=== PATIENT | male | born 1940 | race Caucasian/White ===

== ENCOUNTER 2024-05-29 09:48 | Emergency (ER) | payer MEDICARE, OTHER, SELFPAY ==
--- NOTE | ~2024-05-29 | CT_ITS ---
CLINICAL HISTORY: diffuse low back and ABD pain, no injury Exam: CT Abdomen and Pelvis With IV Contrast Comparison: None Findings: The liver density is homogeneous The gallbladder is normal in size containing multiple gallstones The spleen is normal in size No pancreatic ductal dilatation No hydronephrosis. There is a 6 cm benign left renal cortical and parapelvic cyst. No urinary tract calculi or obstruction. Normal bowel caliber. A right inguinal hernia is present containing non incarcerated small bowel. The bowel pattern is nonobstructed. The inguinal hernia mouth measures 4 cm in diameter. There are very few colon diverticula. The appendix is normal. No free fluid/free air Abdominal aorta caliber is normal is athero sclerotic plaque. There is visceral artery atherosclerotic calcification. Small and large bowel branches are perfused. Bladder outline is smooth. Hemostasis clips are present in the region of the prostate gland which is presumed surgically absent. No suspicious skeletal lesions. Mild degenerative spondylosis involving the lumbar spine without signs of canal stenosis. Impression : 1. Right inguinal hernia without signs of bowel obstruction 2. Normal-size gallbladder with cholelithiasis. This document has been electronically signed by: Rui Forte MD on 05/29/2024 14:20:02
--- NOTE | ~2024-05-29 | XR_ITS ---
CLINICAL HISTORY: pain 3 views lumbar spine Comparison: None Findings: No fracture or acute malalignment. Moderate multilevel degenerative change with disc space narrowing and facet hypertrophy. IMPRESSION: No acute findings. Moderate multilevel degenerative change. This document has been electronically signed by: Jose Guadalupe Acevedo MD on 05/29/2024 11:59:32
[2024-05-29 10:00] VITALS: BP 171/79; PULSE 58; RESP 20; TEMP 36.7; O2SAT 97; BMI 22.2
--- NOTE | 2024-05-29 10:56 | ED_ITS ---
HPI - Back Pain/Injury General Chief Complaint: Back Pain/Injury Stated Complaint: back pain Time Seen by Provider: 05/29/24 10:56 Source: patient Mode of arrival: ambulatory (With a cane) Limitations: no limitations History of Present Illness ED Provider: Betina Pyle NP HPI Narrative: Patient is an 84-year-old male past medical history of hypertension, psoriatic arthritis, RCA stenting in February of 2023, family reports that he had was experiencing severe palpitations and a Holter monitor was showing very frequent runs of PVCs therefore cardiac catheterization was performed. He presents to the emergency department with family for evaluation of back pain today. Patient reports that he is experiencing pain diffusely across the lower back, first noticed this when he got out of bed this morning to walk to the bathroom. He does admit that last night he tripped but feels quite certain that he did not fall he does not recall having to stand up or get up off the floor. He reports that it was dark he can not provide much further details surrounding this trip, does not recall falling into anything. Pain is exacerbated with movement, deep breathing or cough. During evaluation he also admits to having pain to the bilateral sides of his abdomen deep breathing and movement. He denies dysuria, urinary frequency/urgency/hesitancy, or hematuria. He denies anterior chest pain or shortness of breath. He does admit that he has been experiencing rhinorrhea over past month or so, but has not been experiencing cough. Denies history of similar pain. Took ibuprofen 600 mg at approximately 09:15 without any improvement MD elicited complaint: back pain Related Data Allergies Allergy/AdvReac Type Severity Reaction Status Date / Time No Known Allergies Allergy Verified 05/29/24 10:02 [No Known Allergies*] Review of Systems 2 Review of Systems: Yes all other systems are reviewed and are negative [facility] Past Medical History Attestation statement: The following information was validated with the patient. Source: old records reviewed Social History Social History Advance Directives: No Advance Directives Information Provided: Yes Do you have a plan to hurt others: No Plan Physical Exam 2 Vital Signs: Vital Signs: Last Vital Signs Temp 98.1 F 05/29/24 10:00 Pulse 59 05/29/24 16:17 Resp 14 05/29/24 16:17 BP 120/67 05/29/24 16:17 Pulse Ox 94 05/29/24 16:17 O2 Del Method Room Air 05/29/24 16:17 BMI result Body Mass Index 22.2 Appearance: Alert.?Oriented to person, place and time. No acute distress.?Normal affect. Neck: Normal inspection.? Neck supple.?? CVS: Heart sounds normal. Normal heart rate and rhythm.? Pulses normal; bilateral radial pulses 2+, bilateral posterior tibial/dorsalis pedis pulses 2+.? Respiratory: No respiratory distress.? Lung sounds clear to auscultation bilaterally?? Abdomen: Soft and non-tender. Normoactive bowel sounds. No pulsatile mass.?? Skin: Skin warm and dry.? Normal skin color.? ?? Extremities: No lower extremity edema.? Back: On evaluation does not have reports to possible pain on palpation, no paraspinal muscle tenderness or spasming. No CVA tenderness. No midline spinal tenderness, step-off's, or deformity. Full ROM intact in bilateral lower extremities. Straight leg test negative on right; Straight leg test negative on left. No rashes, lesions, areas of induration or fluctuance, or signs of infection noted., Neuro: Moves all extremities spontaneously. 5/5 strength in hip extension/flexion, abduction, adduction. Sensation to light touch intact bilaterally. No ataxia, gait unsteady but at baseline per family.. No focal neuro deficits. Course Reevaluation(s) Reevaluation #1: CT of the abdomen and pelvis revealing a right inguinal hernia without signs of bowel obstruction, normal gallbladder, no hydronephrosis or urolithiasis, diverticulosis without diverticulitis, normal appendix, no AAA. Incidental finding is benign left renal cyst.. Reviewed the signs patient and family at bedside. At this time will trial of tizanidine and acetaminophen. Daughter feel strongly about physical therapy evaluation, she states that at baseline he has an unsteady gait despite use of a cane due to the arthritis that is progressively been worsening in his right knee. He currently resides in an independent living, and they worry about his safety especially with use of a muscle relaxant and going home independently. Will place him physician observation pending case management and physical therapy evaluation for further disposition. Time: 14:49 Reevaluation #2: Patient resting quietly asleep on the stretcher after receiving medication, arouses to verbal stimuli. Reports improvement in pain. Time: 16:15 Medications Administered Discontinued Medications Generic Name Dose Route Start Last Admin Trade Name Nadine PRN Reason Stop Dose Admin Acetaminophen 975 mg 05/29/24 14:48 05/29/24 15:18 Acetaminophen 325 Mg Tablet PO 05/29/24 14:49 975 mg ONCE ONE Administration Sodium Chloride 1,000 mls @ 999 mls/hr 05/29/24 12:45 05/29/24 14:32 Ns IV 05/29/24 13:45 Infused .Q1H1M LILLY Infusion Iohexol 100 ml 05/29/24 12:36 05/29/24 12:36 Iohexol 350 Mg/Ml 100 Ml Infus..Btl IV 05/29/24 12:37 85 ml ONCE ONE Administration Tizanidine HCl 4 mg 05/29/24 14:48 05/29/24 15:18 Tizanidine Hcl 4 Mg Tablet PO 05/29/24 14:49 4 mg ONCE ONE Administration Medical Decision Making Medical Decision Making [facility] Narrative: Patient is an 84-year-old male past medical history of hypertension, psoriatic arthritis, RCA stenting in February of 2023 who presents for evaluation of diffuse lower back pain with onset this morning noted while getting out of bed. On examination I am not able to reproduce the pain upon palpation, pain does seem to exacerbate with movement, or anything that increases intra-abdominal pressure such as coughing, deep breathing, during examination he also notes having pain to the bilateral sides of the abdomen. No midline spinous tenderness, step-offs suspicion for acute fracture subluxation. Will obtain CBC to evaluate for leukocytosis/ anemia, CMP and lipase to evaluate for abnormal electrolytes /abnormal renal function/ abnormal hepatic/biliary function, EKG and troponin to evaluate for ischemia/ACS. CT of the abdomen and pelvis to evaluate for retroperitoneal bleeding, hematoma, aneurysm in addition will obtain Urinalysis. Differential Diagnosis Differential Diagnoses: The differential diagnosis associated with the presentation includes ( see narrative above) Admission/Observation Consideration of admission/observation: Escalation of care including admission/observation considered ( see narrative above) Lab Data [facility] Lab Attestation statement: I reviewed the patient's lab results. 05/29/24 11:42 05/29/24 11:42 Labs: Lab Results 05/29/24 05/29/24 Range/Units 11:42 11:57 WBC 5.5 (4.8-10.8) X10*3/uL RBC 4.28 L (4.60-5.80) X10*6/uL Hgb 12.2 L (14.0-18.0) g/dl Hct 38.2 L (42.0-52.0) % MCV 89.3 (80.0-98.0) fL MCH 28.5 (27.0-33.0) pg MCHC 31.9 (31.0-36.0) g/dl RDW 15.0 (11.0-16.0) % Plt Count 200 (160-400) X10*3/uL MPV 9.3 L (9.4-12.4) fL Immature Gran % (Auto) 0.5 H (0.0-0.4) % Neut % (Auto) 71.9 (45-73) % Lymph % (Auto) 17.5 L (20-40) % Mathews % (Auto) 6.6 (2-11) % Eos % (Auto) 2.4 (0-4) % Baso % (Auto) 1.1 (0-2) % Lymph # (Auto) 1.0 L (1.2-4.9) X10*3/uL Mathews # (Auto) 0.4 (0.1-1.2) X10*3/uL Eos # (Auto) 0.1 (0.0-0.4) X10*3/uL Baso # (Auto) 0.1 (0.0-0.2) X10*3/uL Abs Immat Gran (auto) 0.03 (0.00-0.03) X10*3/uL Absolute Neuts (auto) 3.9 (2.0-8.3) x10*3/uL Absolute Nucleated RBC 0.000 (0.0-0.012) X10*3/uL Nucleated RBC % (auto) 0.0 (0.0-0.2) /100WBC Sodium 140 (135-145) mmol/L Potassium 4.4 (3.3-5.1) mmol/L Chloride 111 H (96-108) mmol/L Carbon Dioxide 23 (22-29) mmol/L Anion Gap 10 L (12-20) BUN 14 (9-16) mg/dL Creatinine 0.97 (0.5-1.4) mg/dL Estim Creat Clear Calc 57.3 Estimated GFR > 60 Random Glucose 100 (60-115) mg/dL Calcium 8.2 L (8.4-10.2) mg/dL Magnesium 2.3 (1.6-2.6) mg/dL Total Bilirubin 0.8 (0.0-1.0) mg/dL Direct Bilirubin 0.3 (0.0-0.5) mg/dL AST 17 (5-37) U/L ALT 11 (0-40) U/L Alkaline Phosphatase 66 (39-117) U/L Troponin I High Sens 4.5 (<3.5-35.0) ng/L B-Natriuretic Peptide 183 H (<100) pg/mL Total Protein 6.5 (6.5-8.0) g/dL Albumin 3.6 (3.5-5.0) g/dL Lipase 24 (8-78) U/L Urine Color Yellow Urine Appearance Clear Urine pH 7.5 (5.0-9.0) Ur Specific [place] 1.010 (1.005-1.025) Urine Protein Negative (Neg-Trace) mg/dL Urine Glucose (UA) Negative (Negative) mg/dL Urine Ketones Negative (Negative) mg/dL Urine Blood Negative (Negative) Urine Nitrite Negative (Negative) Ur Leukocyte Esterase Negative (Negative) Independent Interpretation I performed an independent interpretation of an: EKG (EKG revealing sinus bradycardia first-degree AV block and RBBB with NC interval 216 MS, ventricular rate 54, QTC 434, no ST elevation, T-wave inversion in lead III) Radiology Impression Discussion of test interpretation with radiology: I have reviewed the radiologist's reading. Radiologist Impression: 3 views lumbar spine Comparison: None Findings: No fracture or acute malalignment. Moderate multilevel degenerative change with disc space narrowing and facet hypertrophy. IMPRESSION: No acute findings. Moderate multilevel degenerative change. Exam: CT Abdomen and Pelvis With IV Contrast Comparison: None Findings: The liver density is homogeneous The gallbladder is normal in size containing multiple gallstones The spleen is normal in size No pancreatic ductal dilatation No hydronephrosis. There is a 6 cm benign left renal cortical and parapelvic cyst. No urinary tract calculi or obstruction. Normal bowel caliber. A right inguinal hernia is present containing non incarcerated small bowel. The bowel pattern is nonobstructed. The inguinal hernia mouth measures 4 cm in diameter. There are very few colon diverticula. The appendix is normal. No free fluid/free air Abdominal aorta caliber is normal is athero sclerotic plaque. There is visceral artery atherosclerotic calcification. Small and large bowel branches are perfused. Bladder outline is smooth. Hemostasis clips are present in the region of the prostate gland which is presumed surgically absent. No suspicious skeletal lesions. Mild degenerative spondylosis involving the lumbar spine without signs of canal stenosis. Impression : 1. Right inguinal hernia without signs of bowel obstruction 2. Normal-size gallbladder with cholelithiasis. Independent Historian Clinical information obtained from an independent historian. History obtained from or confirmed by: Other (children) Prescription Management I considered prescription management with: Pain Medication Chronic Conditions Patient?s care impacted by: Other (See narrative above) Discharge Plan Discharge Clinical Impression: Lower back pain Patient Disposition: Still a Patient Print Language: Estonian
--- NOTE | 2024-05-29 11:17 | ECG_ITS ---
Test Reason : ABD PAIN Blood Pressure : */* mmHG Vent. Rate : 54 BPM Atrial Rate : 54 BPM P-R Int : 216 ms QRS Dur : 134 ms QT Int : 458 ms P-R-T Axes : 105 17 21 degrees QTcB Int : 434 ms Artifact in tracing Sinus bradycardia with 1st degree A-V block Right bundle branch block Abnormal ECG When compared with ECG of 12-Feb-2019 11:32, Premature ventricular complexes are no longer Present MD interval has increased Right bundle branch block is now Present Referred By: Betina Pyle Electronically Signed By: ORLIN BRANDON
[2024-05-29 11:50] LABS: MANUAL DIFF FLAG NO
[2024-05-29 11:53] LABS: Basophils Absolute Auto 0.1 X10*3/uL (0.0-0.2); Basophils Percent Auto 1.1 % (0-2); Eosinophils Absolute Auto 0.1 X10*3/uL (0.0-0.4); Eosinophils Percent Auto 2.4 % (0-4); Hematocrit 38.2 % (42.0-52.0); Hemoglobin 12.2 g/dl (14.0-18.0); Imm Gran Abs Auto 0.03 X10*3/uL (0.00-0.03); Imm Gran Pct Auto 0.5 % (0.0-0.4); Lymphocytes Percent Auto 17.5 % (20-40); Mean Corpuscular HGB Conc 31.9 g/dl (31.0-36.0); Mean Corpuscular Hemoglobin 28.5 pg (27.0-33.0); Mean Corpuscular Volume 89.3 fL (80.0-98.0); Mean Platelet Volume 9.3 fL (9.4-12.4); Monocytes Absolute Auto 0.4 X10*3/uL (0.1-1.2); Monocytes Percent Auto 6.6 % (2-11); Neutrophils Absolute Auto 3.9 x10*3/uL (2.0-8.3); Neutrophils Percent Auto 71.9 % (45-73); Platelet Count 200 X10*3/uL (160-400); Red Blood Count 4.28 X10*6/uL (4.60-5.80); White Blood Count 5.5 X10*3/uL (4.8-10.8)
[2024-05-29 12:06] LABS: Appearance Urine Clear; Color Urine Yellow; Glucose Urine UA Negative (Negative); Leukocyte Esterase Urine Negative (Negative); Nitrite Urine Negative (Negative); PH 7.5 (5.0-9.0); Urine Blood Negative (Negative); Urine Ketones Negative (Negative); Urine Protein Negative (Neg-Trace)
[2024-05-29 12:09] LABS: Alanine Aminotransferase 11 U/L (0-40); Albumin Level 3.6 g/dL (3.5-5.0); Alkaline Phosphatase 66 U/L (39-117); Anion Gap 10 (12-20); Aspartate Amino Transferase 17 U/L (5-37); Bilirubin Direct 0.3 mg/dL (0.0-0.5); Bilirubin Total 0.8 mg/dL (0.0-1.0); Blood Urea Nitrogen 14 mg/dL (9-16); Calcium 8.2 mg/dL (8.4-10.2); Carbon Dioxide 23 mmol/L (22-29); Chloride 111 mmol/L (96-108); Creatinine Clr Calc Pharmacy 57.3; Estimated Glomerular Filt Rate > 60; Glucose Random 100 mg/dL (60-115); Lipase 24 U/L (8-78); Magnesium 2.3 mg/dL (1.6-2.6); Potassium 4.4 mmol/L (3.3-5.1); Sodium 140 mmol/L (135-145); Total Protein 6.5 g/dL (6.5-8.0)
[2024-05-29 12:12] LABS: B Type Natriuretic Peptide 183 pg/mL (<100)
[2024-05-29 12:14] LABS: Troponin-I High Sensitivity 4.5 ng/L (<3.5-35.0)
[2024-05-29] MEDS: iohexoL 350 MG/ML 100 ML INFUS..BTL IV (12:36)
[2024-05-29] MEDS: 0.9 % Sodium Chloride 1,000 ML 999 ML IV (13:19)
--- NOTE | 2024-05-29 15:12 | MHC.CM.PN ---
CM RECEIVED A CONSULT FOR PT DUE TO ACUTE LOWER BACK PAIN AND CHRONIC UNSTEADY GAIT CM MET WITH PT AND FAMILY AT BEDSIDE PT LIVES AT [facility] WHERE HE USES A CANE AT BASELINE DAUGHTER REPORTS CONCERN THAT PTS GAIT WAS ALREADY UNSTEADY AND IS WORSE WITH THE PAIN AND MUSCLE RELAXERS THEY ALL REPORT STR WOULD BE PREFERRED THEY UNDERSTAND A PT EVAL WILL BE COMPLETED TOMORROW PER DISCUSSION, REFERRALS WILL BE MADE TO [facility] IN CASE HE DOES NOT QUALIFY FOR REHAB
[2024-05-29] MEDS: Acetaminophen 325 MG TABLET 975 MG PO (15:18)
[2024-05-29] MEDS: TiZANidine HCL 4 MG TABLET PO (15:18)
[2024-05-29 16:17] VITALS: BP 120/67; PULSE 59; RESP 14; O2SAT 94
[2024-05-29 18:48] VITALS: BP 166/55; PULSE 46; RESP 14; O2SAT 96
--- NOTE | 2024-05-29 19:32 | PC.NURSE ---
p requesting pain medication, PA aware
[2024-05-29] MEDS: Acetaminophen 325 MG TABLET 650 MG PO (21:38)
--- NOTE | 2024-05-29 22:57 | PC.NURSE ---
pt alert, verbal, no issues raised, call light within reach
[2024-05-30 00:33] VITALS: BP 139/60; PULSE 52; RESP 16; TEMP 36.8; O2SAT 97
--- NOTE | 2024-05-30 00:41 | MHC.EDTECH ---
This pct assumed care of Patient at 2300 ,vitals taken ,Patient belongings list done ,Patient was offer to change into hospital,Pants ,but refused .
[2024-05-30 06:27] VITALS: BP 159/65; PULSE 53; RESP 16; TEMP 36.6; O2SAT 96
[2024-05-30] MEDS: carvediloL 12.5 MG TABLET PO (08:29)
[2024-05-30] MEDS: Aspirin 81 MG TAB.CHEW PO (08:29)
[2024-05-30] MEDS: Atorvastatin Calcium 80 MG TABLET PO (08:29)
[2024-05-30] MEDS: Lidocaine 4 % Patch ADH..PATCH 1 PATCH TRANSDERMA (09:41)
--- NOTE | 2024-05-30 09:47 | MHC.CM.ED ---
Patient remains in ER. Physical therapy eval completed. Home with services recommended. Waiting for eval to be written up. Attempted to meet with patient in regards to discharge planning. Patient currently sleeping. Daughter, Yeny at beside. Yeny agreeable to patient being d/c'd home with [facility] for physical therapy. [facility] Yeny agreeable to this. Yeny will transpot patient home. Temitope RN and Ciarra GARCIA aware. Continue to monitor for d/c needs.
[2024-05-30 10:14] VITALS: BP 142/69; PULSE 57; RESP 16; TEMP 36.9; O2SAT 96
[2024-05-30 10:44] LABS: Influenza A PCR NEGATIVE (Negative); Influenza B PCR NEGATIVE (Negative); Resp Syncy Virus RNA Qual PCR NEGATIVE (Negative); SARS COV2 PCR INHOUSE NEGATIVE (Negative)
== END 2024-05-30 10:15 | disposition home or self-care (01) ==
PROVIDERS: Nurse Practitioner Family; Registered Nurse Emergency; Emergency Provider Emergency Medicine; PCP Internal Medicine
DX: M54.50 Low back pain, unspecified (principal); R00.2 Palpitations; R10.2 Pelvic and perineal pain; J34.89 Other specified disorders of nose and nasal sinuses; R05.9 Cough, unspecified; R26.81 Unsteadiness on feet; R00.1 Bradycardia, unspecified; R94.31 Abnormal electrocardiogram [ECG] [EKG]; R06.02 Shortness of breath; Z79.899 Other long term (current) drug therapy; Z03.818 Encounter for observation for suspected exposure to other biological agents ruled out
CPT/HCPCS: 0241U; 36415; 72100; 74177; 80048; 80076; 81003; 83690; 83735; 83880; 84484; 85025; 93005; 96360; 97161; 99284; 99285; Q9967

== ENCOUNTER → 2024-05-29 10:05 | Outpatient (BNV) | payer MEDICARE, OTHER, SELFPAY | PROVIDERS: Emergency Provider Emergency Medicine; PCP Internal Medicine; Visit Provider Radiology Vascular & Interventional Radiology | DX: M54.50 Low back pain, unspecified (principal) | CPT/HCPCS: 72100 ==

== ENCOUNTER → 2024-05-29 11:17 | Outpatient (BNV) | payer MEDICARE, OTHER, SELFPAY | PROVIDERS: Emergency Provider Emergency Medicine; PCP Internal Medicine; Visit Provider Internal Medicine | DX: I44.0 Atrioventricular block, first degree (principal); I45.10 Unspecified right bundle-branch block; R00.1 Bradycardia, unspecified | CPT/HCPCS: 93010 ==

== ENCOUNTER 2024-07-10 18:51 | Inpatient (IN) | payer MEDICARE, OTHER, SELFPAY ==
--- NOTE | ~2024-07-10 | CT_ITS ---
CLINICAL HISTORY: fall CT cervical spine without contrast Comparison: 02/12/2019 11:40 AM EST: CTSR: CAT SCAN CERVICAL SPINE 07852 (10:40 AM DRAINAGE ENGINEER) Findings: Chronic anterior compression deformity of the C6 vertebral body with bony fusion causing focal kyphosis. Moderate to severe multilevel spondylosis with disc space narrowing, endplate sclerosis osteophytosis and facet arthropathy. Diffuse osteopenia. Visualized intracranial contents are unremarkable. No cervical fluid collections or masses. Lung apices are clear. IMPRESSION: No evidence of acute fracture or traumatic listhesis cervical spine. Moderate to severe multilevel spondylosis. Chronic moderate anterior compression deformity of the C6 vertebral body with bony fusion causing focal kyphosis. This document has been electronically signed by: Miguel Ángel Marquez MD on 07/10/2024 21:42:09
--- NOTE | ~2024-07-10 | CT_ITS ---
CLINICAL HISTORY: fall CT head without contrast Comparison: None Findings: No intra-axial mass, midline shift, hydrocephalus, or acute hemorrhage. Moderate atrophy-like change or white matter disease. There is no sinus or mastoid fluid. The orbits are unremarkable. There is no acute fracture. IMPRESSION: 1. No acute intracranial findings specifically, no acute intracranial hemorrhage. 2. Moderate atrophy-like change or white matter disease. This document has been electronically signed by: Miguel Ángel Marquez MD on 07/10/2024 21:43:10
--- NOTE | ~2024-07-10 | XR_ITS ---
CLINICAL HISTORY: fall 2 view right femur Comparison: CR - XR HIP RT W PEL1V - 07/10/24 20:47 EDT Findings: Acute comminuted intertrochanteric fracture of the right hip. No knee effusion. No significant arthritic change. No radiopaque foreign body. IMPRESSION: Acute comminuted intertrochanteric fracture of the right hip. This document has been electronically signed by: Miguel Ángel Marquez MD on 07/10/2024 21:31:27
--- NOTE | ~2024-07-10 | CT_ITS ---
CLINICAL HISTORY: fall, reporting suprapubic pain CT abdomen and pelvis with contrast Comparison: CT/SR - CT ABDOMEN PELVIS W IV CON - 05/29/2024 12:34 PM EDT Findings: No consolidation or effusion. Cholelithiasis. No gallbladder wall thickening or pericholecystic fluid. A 5.5 cm left parapelvic cyst. No hydronephrosis or nephrolithiasis. No renal stones. No bowel obstruction, pneumoperitoneum, or pneumatosis. Pelvic contents unremarkable. Normal appendix. Acute comminuted intertrochanteric fracture of the right hip. IMPRESSION: Acute comminuted intertrochanteric fracture of the right hip. Cholelithiasis. Left parapelvic 5.5 cm simple cyst. No hydronephrosis or nephrolithiasis. This document has been electronically signed by: Miguel Ángel Marquez MD on 07/10/2024 21:58:26
--- NOTE | ~2024-07-10 | CT_ITS ---
CLINICAL HISTORY: fall, R sided rib pain CT chest with contrast Comparison: CT/SR - CHEST WITHOUT CONTRAST [id number] - 02/12/19 11:40 EST Findings: The heart size is normal. The visualized thyroid and mediastinum are unremarkable. No consolidation or effusion. The visualized upper abdomen is unremarkable. Chronic severe compression fracture of the T8 vertebral body 4 mm retropulsion. Deformity of the right 5th posterior rib and left 6th 7th 8th 9th and 10th ribs consistent with remote trauma. IMPRESSION: 1. No acute disease within the chest. 2. Chronic severe compression deformity of the T8 vertebral body with 4 mm retropulsion. 3. Chronic right 5th and left 6th through 10th ribs fractures/deformities. This document has been electronically signed by: Miguel Ángel Marquez MD on 07/10/2024 22:44:48
--- NOTE | ~2024-07-10 | XR_ITS ---
CLINICAL HISTORY: fall 3 view, pelvis and right hip Comparison: None Findings: Acute comminuted intertrochanteric fracture of the right hip. No significant arthritic change. The soft tissues are unremarkable. IMPRESSION: Acute comminuted intertrochanteric fracture of the right hip. This document has been electronically signed by: Miguel Ángel Marquez MD on 07/10/2024 21:31:51
--- NOTE | ~2024-07-10 | FL_ITS ---
EXAMINATION: XR FLUOROSCOPY WITH IMAGES CLINICAL INFORMATION: Right femoral intramedullary nail. COMPARISON: None available. TECHNIQUE: Fluoroscopy provided to: Dr. Peace Fluoroscopy time: 0.7 minutes DAP: 0.341 mGycm2 Images: 2 FINDINGS: 2 fluoroscopic spot images taken during intramedullary nail and femoral head compression screw placement/ORIF of right hip intertrochanteric fracture. Please refer to the full operative report for details. FL/FL guidance in OR IMPRESSION: Fluoroscopic guidance. Electronically signed by: Jamison Pham MD 07/12/2024 08:18 AM EDT
[2024-07-10 19:20] VITALS: BP 156/88; BP 180/90; PULSE 76; PULSE 77; RESP 16; TEMP 36.7; O2SAT 94; O2SAT 95; BMI 21.5
--- NOTE | 2024-07-10 19:23 | ED_ITS ---
HPI - Fall General Chief Complaint: Fall Stated Complaint: fall, leg pain Time Seen by Provider: 07/10/24 19:23 Source: patient, family, EMS and RN notes reviewed Mode of arrival: EMS Limitations: no limitations History of Present Illness ED Provider: Elizabeth Allen PA-C HPI Narrative: This is a 84-year-old male, with a past medical history of hypertension, psoriatic arthritis, RCA stenting in February of 2023, atrial fibrillation - resolved after stenting, not currently on anticoagulation, who presents emergency department via EMS, accompanied by family, for evaluation of fall. Patient reports that he was trying to get inside his home at [facility] and was having difficulty unlocking the door when suddenly he fell backwards, striking his posterior head. He states that he also landed on his right side injuring his right leg. He has been unable to bear weight on his right leg since. Patient reports that he was on the ground for several minutes, family reports that typically there is a rn palliative that is right outside of the region where he was found on the ground. Family also reports they dropped patient off and within 15 minutes they received the phone call that he was going to the hospital so therefore he was only on the ground for approximately 5 minutes. He denies any chest pain or shortness for breath prior to the fall. He denies taking any medications prior to his arrival today. MD complaint: fall Onset (ago): minute(s) Fall from: standing Fall witnessed: no Place fall occurred: [facility] (Independent living - [facility]) Prolonged down time: minute(s) Symptoms prior to fall: none Context: tripped/slipped Quality: stabbing Associated symptoms (after fall): denies Related Data Home Medications ?Medication ?Instructions ?Recorded ?Confirmed aspirin 81 mg tablet 81 mg PO DAILY 05/29/24 05/29/24 atorvastatin 80 mg tablet 80 mg PO DAILY 05/29/24 05/29/24 carvedilol 12.5 mg tablet 12.5 mg PO BID 05/29/24 05/29/24 Previous Rx's ?Medication ?Instructions ?Recorded lidocaine 5 % topical patch 1 patch topical DAILY #15 ea 05/30/24 Allergies Allergy/AdvReac Type Severity Reaction Status Date / Time No Known Allergies Allergy Verified 07/10/24 19:23 [No Known Allergies*] Review of Systems 2 Review of Systems: Yes all other systems are reviewed and are negative Constitutional: Constitutional: Reports as per HPI Eyes: Eyes: Reports as per HPI, Denies change in vision and Denies eye discharge ENT: Reports system reviewed and no additional complaints, except as documented, Reports as per HPI, Reports Normal hearing present and Denies facial pain Cardiovascular: Cardiovascular: Reports as per HPI and Denies chest pain Respiratory: Respiratory: Reports as per HPI and Denies cough Gastrointestinal: Gastrointestinal: Reports as per HPI, Reports no additional gastrointestinal complaints, Denies abdominal pain, Denies diarrhea, Denies nausea and Denies vomiting Genitourinary: Genitourinary: Reports as per HPI Musculoskeletal: Musculoskeletal: Reports no additional musculoskeletal complaints and Reports as per HPI Integumentary/Breasts: Skin/Breast: Reports system reviewed and no additional complaints, except as docu, Reports as per HPI, Reports erythema, Denies rash and Denies wounds Neurologic: Reports Normal hearing present Psychiatric: Psychiatric: Reports no additional psychiatric complaints and Reports as per HPI Endocrine: Endocrine: Reports no additional endocrine complaints and Reports as per HPI Hematologic/Lymphatic: Hematologic/Lymphatic: Reports no additional hematologic/lymphatic complaints and Reports as per HPI Allergic/Immunologic: Allergic/Immunologic: Reports no additional allergic/immunologic complaints and Reports as per HPI PMF Past Medical History Attestation statement: The following information was validated with the patient. Social History Social History Unable to assess alcohol history related to: Unable to respond Patient Tobacco Use Status: Tobacco use Unknown Smoked in Last 30 Days: No Use of substances other than those prescribed or required for medical reasons: No Advance Directives: No Advance Directives Information Provided: Yes Do you have a plan to hurt others: No Plan Nutrition Risks: No Nutritional Risk Physical Exam 2 Vital Signs: Vital Signs: Last Vital Signs Temp 98.3 F 07/10/24 21:16 Pulse 75 07/10/24 21:16 Resp 16 07/10/24 19:20 BP 150/80 H 07/10/24 21:16 Pulse Ox 93 07/10/24 21:16 O2 Del Method Room Air 07/10/24 21:16 BMI result Body Mass Index 21.5 Const: General: cooperative, comfortable and no acute distress O rientation/consciousness: patient oriented x3 Limitations: no limitations HEENT: Head: Yes normal to inspection, Yes normocephalic and Yes atraumatic Ears: hearing grossly normal bilaterally General nose exam: Normal external nose present Face and sinus: Yes normal facial exam Mouth: Normal oral and palatal mucosa present, oropharynx normal and moist mucous membranes Throat: Yes posterior oropharynx normal Eyes: General: appearance normal, both eyes and all related structures E yelids: Yes eyelids normal Conjunctivae: conjunctivae normal Sclerae: s clerae normal Pupils: Equal, round and reactive pupils present EOM: EOMs intact bilaterally Neck: Other: In cervical collar Neck: Yes normal visual inspection, Yes full ROM and Yes no lymphadenopathy Lymphatic: no lymphadenopathy noted Chest: Other: No flail chest, no ecchymosis Chest palpation & inspection: normal inspection of the chest Resp: Effort & Inspection: normal respiratory effort and able to speak in complete sentences Auscultation: clear to auscultation bilaterally Cardio: Rate: regular rate Rhythm: regular rhythm Heart sounds: S1 normal heart sound present and S2 normal heart sound present GI: Other: Abdomen is soft, mild tenderness palpation in the suprapubic region, specifically on the right side. No rebound or guarding. No ecchymosis. Inspection: Yes normal to inspection Skin: General skin exam: no rashes or lesions noted Trauma: no lacerations or abrasions Wounds: no wounds Neuro: General: patient oriented x3 and moves all extremities Cranial nerves: Yes Equal, round and reactive pupils present and Yes Normal hearing present Extrem: Other: Right leg is shortened and externally rotated. Strong DP pulse. Patient has exquisite tenderness palpation along the anterior femur, extending into the right anterior-posterior hip. Unable to lift leg off bed secondary to pain. No open wounds or lacerations seen. General: Yes normal to inspection Right upper extremity: normal to inspection Left upper extremity: normal to inspection Left lower extremity: normal to inspection Course Reevaluation(s) Reevaluation #1: Added CT chest and abdomen as we are able to get clothes off, and patient does report some pain in his suprapubic region, no ecchymosis seen. No rebound or guarding. He also is reporting some right-sided chest pain, no bony step-off or deformity. Time: 20:23 Reevaluation #2: Sign-out given to my colleague, Ashkan Delaney PA-C pending xrays, cts, ekg, repeat trop. Time: 21:07 Reevaluation #3: patient received in sign-out at change of shift pending repeat trop, imaging and disposition. The patient's repeat trop is flat, rules out for ACS. Imaging is significant for acute, comminuted fracture of the right femoral leg. Discussed with orthopedicsEmperatriz who recommends admission to the medical service and NPO after midnight for likely OR intervention tomorrow. The patient is not anticoagulated. I discussed all this with the patient in his family he was bedside Time: 22:49 Medications Administered Discontinued Medications Generic Name Dose Route Start Last Admin Trade Name Freq PRN Reason Stop Dose Admin Iohexol 85 ml 07/10/24 20:50 07/10/24 20:51 Iohexol 350 Mg/Ml 100 Ml Infus..Btl IV 07/10/24 20:51 85 ml ONCE ONE Administration Lidocaine HCl 10 ml 07/10/24 22:02 07/10/24 22:23 Lidocaine Hcl 2 % Urojet 10 Ml Jel.Pf.Cindy TOPICAL 07/10/24 22:03 10 ml ONCE ONE Administration Morphine Sulfate 4 mg 07/10/24 19:36 07/10/24 19:44 Morphine Sulfate 4 Mg/Ml Cartridge IVPUSH 07/10/24 19:37 4 mg ONCE ONE Administration Protocol Morphine Sulfate 4 mg 07/10/24 22:02 07/10/24 22:20 Morphine Sulfate 4 Mg/Ml Cartridge IVPUSH 07/10/24 22:03 4 mg ONCE ONE Administration Protocol Medical Decision Making Medical Decision Making MDM Narrative: This is a 84-year-old male who presents emergency department with concerns for right leg pain status post mechanical fall which occurred today. On arrival, patient complaining of right hip and right femur pain. Tenderness palpation along the anterior and posterior iliac crest into the left femur. He has a strong DP pulse. He was alert and oriented x4. No neurologic deficits on examination. Patient was only on the ground for several minutes while EMS was called. He has been unable to bear weight on his right leg secondary to pain. Denies taking any medications prior to his arrival. Of note, patient was seen here on May 29, 2024 due to back pain. Family reports that he continues to have back pain and states that he is currently being seen by Interventional Radiology through [facility] for to missed T-spine fractures > he was not a surgical candidate at this time. Plan: CT head, neck, labs, EKG, x-ray right hip, and right femur. Differential Diagnosis Differential Diagnoses: The differential diagnosis associated with the presentation includes ICH, fracture, contusion, sprain, strain, C-spine fracture Consult Healthcare Provider Management of the patient was discussed with: Hospitalist (Dr Mancia) and Glass Melt Operator ( orthopedics, Emperatriz Barriga) Lab Data MDM Lab Attestation statement: I reviewed the patient's lab results. Patient with no leukocytosis, slight leukopenia at 4.7, H&H H consistent with normocytic anemia hemoglobin 12.1, hematocrit 37.6, chemistry with no evidence of NANDA. AST ALT slightly elevated at 38 and 43 07/10/24 19:52 07/10/24 19:52 Labs: Lab Results 07/10/24 07/10/24 Range/Units 19:52 21:43 WBC 4.7 L (4.8-10.8) X10*3/uL RBC 4.12 L (4.60-5.80) X10*6/uL Hgb 12.1 L (14.0-18.0) g/dl Hct 37.6 L (42.0-52.0) % MCV 91.3 (80.0-98.0) fL MCH 29.4 (27.0-33.0) pg MCHC 32.2 (31.0-36.0) g/dl RDW 15.3 (11.0-16.0) % Plt Count 196 (160-400) X10*3/uL MPV 9.7 (9.4-12.4) fL Immature Gran % (Auto) 0.4 (0.0-0.4) % Neut % (Auto) 66.3 (45-73) % Lymph % (Auto) 23.9 (20-40) % [place] % (Auto) 6.2 (2-11) % Eos % (Auto) 2.6 (0-4) % Baso % (Auto) 0.6 (0-2) % Lymph # (Auto) 1.1 L (1.2-4.9) X10*3/uL [place] # (Auto) 0.3 (0.1-1.2) X10*3/uL Eos # (Auto) 0.1 (0.0-0.4) X10*3/uL Baso # (Auto) 0.0 (0.0-0.2) X10*3/uL Abs Immat Gran (auto) 0.02 (0.00-0.03) X10*3/uL Absolute Neuts (auto) 3.1 (2.0-8.3) x10*3/uL Absolute Nucleated RBC 0.000 (0.0-0.012) X10*3/uL Nucleated RBC % (auto) 0.0 (0.0-0.2) /100WBC Sodium 141 (135-145) mmol/L Potassium 4.1 (3.3-5.1) mmol/L Chloride 106 (96-108) mmol/L Carbon Dioxide 28 (22-29) mmol/L Anion Gap 11 L (12-20) BUN 18 H (9-16) mg/dL Creatinine 1.03 (0.5-1.4) mg/dL Estim Creat Clear Calc 52.2 Estimated GFR > 60 Random Glucose 110 (60-115) mg/dL Calcium 8.9 D (8.4-10.2) mg/dL Total Bilirubin 0.4 (0.0-1.0) mg/dL Direct Bilirubin 0.1 (0.0-0.5) mg/dL AST 38 H (5-37) U/L ALT 43 H (0-40) U/L Alkaline Phosphatase 80 (39-117) U/L Troponin I High Sens 5.4 5.7 (<3.5-35.0) ng/L Total Protein 6.6 (6.5-8.0) g/dL Albumin 3.8 (3.5-5.0) g/dL Discharge Plan Discharge Clinical Impression: Closed fracture of right hip Patient Disposition: Admitted As Inpatient Prescriptions: No Action atorvastatin 80 mg Tablet 80 mg PO DAILY carvedilol 12.5 mg Tablet 12.5 mg PO BID Rx Instructions: must administer with a meal/food aspirin 81 mg Tablet 81 mg PO DAILY lidocaine 5 % adhesive patch,medicated 1 patch topical DAILY Qty: 15 0RF Rx Instructions: leave on most painful area for up to 12 hrs Print Language: Kiswahili
--- NOTE | 2024-07-10 19:36 | ECG_ITS ---
Test Reason : fall Blood Pressure : */* mmHG Vent. Rate : 73 BPM Atrial Rate : 73 BPM P-R Int : 202 ms QRS Dur : 130 ms QT Int : 406 ms P-R-T Axes : 23 -2 9 degrees QTcB Int : 447 ms Normal sinus rhythm Right bundle branch block Abnormal ECG When compared with ECG of 29-May-2024 11:32, No significant change was found Referred By: Elizabeth Allen Electronically Signed By: ORLIN BRANDON
[2024-07-10] MEDS: Morphine Sulfate 4 MG/ML CARTRIDGE IVPUSH ×2 (19:44→22:20)
[2024-07-10 19:57] LABS: MANUAL DIFF FLAG NO
--- OUTSIDE RECORDS SUMMARY | 2024-07-10 20:12 | XMS_ITS ---
Author Organization [facility] Address [address] [place] [address] Care Team Providers Care Asbestos Abatement Technician Name Role Phone Leslie Gamble MD Primary Care Provider Flor Ragland [phone] Encounters Encounter Location Date Provider Diagnosis [facility] [address] [place] [address] 2024 Flor Chavez Plan Of Treatment Next Appt Details Provider Name:Talon Ceron , 07/27/2024 03:30:00 PM, [address] [facility], [place] [address], [place], [address], Progress Notes * Tr LAMB TDOB: [birth year] (84 yo M)Acc No.[id number] Progress Note Patient:?Tr LAMB Provider:?Flor Chavez DPM :1940???Age:84 Y???Sex:Male Storm e:2024 Address:[address] [place] [id number] Pcp:Leslie Gamble MD Subjective: * Chief Complaints: * ??? * Medical History:? Objective: * Vitals:? Assessment: Plan: * Treatment: * Images: * The named appointment provid er may or may not be the originator of this progress note, and it is not deemed complete until electronically signed by the appointment provider. Sign off status: Pending * Provider:?Flor Chavez DPM Date:?0 2024 Generated for Vel santiago/Lori/Jackson on:?07/10/2024 08:12 PM EDT
--- OUTSIDE RECORDS SUMMARY | 2024-07-10 20:12 | XMS_ITS ---
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 Role Phone Leslie Gamble MD Primary Care Provider Flor Ragland Unavailable [phone] Luis Giraldo Unavailable [phone] Allergies No Known Allergies REASON FOR VISIT Painful nail(s) aggrevated by shoes and causing difficulty standing/walking., Skin problem Medications Medication SIG (Take, Route, Frequency, Duration) Notes Start Date End Date Status Carvedilol Active Cosentyx Once a month Active Atorvastatin Calcium Active Brilinta 90 MG 1 tablet Orally Twice a day Active Aspir-81 Active Gemtesa Not-Taking Furosemide 20 MG 1 tablet Orally Once a day for 30 day(s) Active Losartan Potassium 50 MG 1 tablet Orally Once a day for 30 day(s) on hold Not-Taking Social History Tobacco Use: Social History Observation Description Date Details (start date - stop date) Former Smoker NA - NA Tobacco Use/Smoking Question Answer Notes Are you a: former smoker Additional Findings: Tobacco Non-User Current no n-smoker Alcohol Screen Question Answer Notes Did you have a drink containing alcohol in the p ast year? No Points 0 Interpretation Negative Tobacco use other than smoking: Question Answer Notes Are you an other tobacco user? 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 and AK (actinic keratosis) L57.0 Assessments Encounter Date Diagnosis (ICD Code) Assessment Notes Treatment Notes Treatment Clinical Notes Section Notes 11/03/2023 Tinea unguium (ICD-10 - B35.1) 11/03/2023 Tinea pedis (ICD-10 - B35.3) 11/03/2023 Xerosis cutis (ICD-10 - L85.3) 11/03/2023 Pain in left toe(s) (ICD-10 - M79.675) 11/03/2023 Pain in right toe(s) (ICD-10 - M79.674) 11/03/2023 Skin disease (ICD-10 - L98.9) 11/03/2023 Hallux valgus (acquired), left foot (ICD-10 - M20.12) 11/03/2023 AK (actinic keratosis) (ICD-10 - L57.0) Plan Of Treatment Next Appt Details Follow Up: 3 Months, Reason: Provider Name:Talon Ceron , 07/27/2024 03:30:00 PM, [address] [place] [address], [address], [place], [address], Procedure Notes * Category Sub-Category Detail Notes Debride Nail 6-10 Nail debridement Nail debridem ent performed extensively to reduce/remove overall nail length and girth, subungual debris, and necrotic tissue, by manual and electrical means with use of a nail nipper and/or dremel, to more viable healthy nail plate or bed tissue 6-10. Silver nitrate used for any petechial bleeding as necessary. Patient chooses, no pharmaceutical tx (92941) Progress Notes * Tr LAMB TDOB: [birth year] (83 yo M)Acc No.[id number]:11/03/2023 Progress Note Patient:?Tr Lamb Provider:?Luis Giraldo DPM :1940???Age:83 Y???Sex:Male Storm e:11/03/2023 Address:[address] [place] [address] [address] [place] [id number] Pcp:Leslie Gamble MD Subjective: * Chief Complaints: * ??? Painful nail(s) aggrevat ed by shoes and causing difficulty standing/walking.Skin problem * HPI: ???Painful Nails:?Pt States Last PCP Visit:?Date:?05/22/2023 ?Misc:?D is present; pt lives at [facility].?Skin problems:?Nature:?tender, scaling, bleeding.?Location:?Forefoot, Midfoot, Heel/Rearfoot, B/L .?Onset/Cause:?shoe gear.?Aggravated by:?any pressure, shoegear.?Treatments:?non-adherence with cream.?Foot Pain:?Nature:?aching, sharp, tenderness.?Location:?Great toe joint, LEFT.?Duration:?several weeks.?Course:?worse.?Aggravated:?any pressure, shoes.?Severity/Quality:?moderate, severe.? * ROS:?General/Constitutional:?Nausea?denies.?Vomiting?denies.?Hunger Thirst?denies.?Loss appetite?denies.?Chills?denies.?Fatigue?denies.?Fever?denies.?Night Sweats?denies.?Unexplained weight loss?denies.?Unexplained weight gain?denies.?HEENTM:?Dentures?admits.?Dizziness?denies.?Glasses/contacts?admits.?Retinopathy?de nies.?Blurred/double vision?denies.?TMJ?denies.?Discharge/drainage?denies.?Implants?denies.?Sore throat?denies.?Dental implants?denies.?Hard of hearing ?denies.?Difficulty chewing/swallowing/speaking?denies.?Nose bleeds?denies.?Sore mouth?denies.?Respiratory:?On Oxygen?denies.?Pneumonia/pleurisy?denies.?Bronchitis?denies.?Emphysema?denies.?C oughing?denies.?Cough blood?denies.?Shortness of breath?denies.?Wheezing?denies.?Cardiovascular:?Pacemaker?denies.?MVP?denies.?WPW?denies.?CHF?denies.?Heart attack?denies.?Septal defect?denies.?Rapid beat?denies.?Chest pain ?denies.?Atrial Fib.?denies.?Murmur/Palpitations?denies.?Gastrointestinal:?Hemorrhoids?denies.?Stomach/Abdominal pain?denies.?Dark blood stool?denies.?Irritable bowel ?denies.?Constipation?denies.?Diarrhea?denies.?Hematology:?Swelling?denies.?Clots?denies.?Varicose Veins?denies.?Bruising?denies.?Bleeding problem?denies.?Genitourinary:?Blood urine?denies.?Frequent/Painfu/urination/bladder control?admits.?Kidney stones?denies.?Infection (UTI)?denies.?Nephropathy?denies.?sex trans dis (STD)?denies.?Prostate?denies.?Musculoskeletal:?Hammertoes?denies.?Bunions?admits.?Back Pain?denies.?Muscle Cramps/ Resting?denies.?Muscle cramps / walking?denies.?Generalized aches and pains?admits.?Weakness?denies.?Integ.:?Zimmerman?denies.?Scars?denies.?Corns/calluses?denies.?Ingrown nails?denies.?Painful nails?denies.?Open Sores?denies.?Rashes?denies.?Neurologic:?Difficulty sleeping?denies.?Brain disorder?denies.?Numbness?denies.?Balance trouble?admits.?Confusion?denies.?Fainting/blackouts?denies.?Tingling?denies.?Tr emors?denies.? * Medical History:? * Surgical History:?prostatect ab 06/2004Bronchogenic Cyst -Afib Post Op Retina Detachment 1994,2000stent 02/2023 * Hospitalization/Major Diagno stic Procedure:?No Hospitalization History. * Family History:?Mother: dece ased, bunion, diagnosed with Family history of arthritis, Unspecified essential hypertension, Unspecified heart disease, Other specified conditions influencing health status.?Father: .?Spouse: .?Children: Breast Cancer, diagnosed with Other malignant neoplasm of unspecified site.? * Social History:?Tobacco Use:?Tobacco Use/Smoking?Are you a:?former smoker ?Additional Findings: Tobacco Non-User?Current non-smoker ?Tobacco use other than smoking?Are you an other tobacco user??No ???Drugs/Alcohol:?Drugs?Have you used drugs other than those for medical reasons in the past 12 months??No ?Alcohol Screen?Did you have a drink containing alcohol in the past year??No ?Points?0 ?Interpretation?Negative ???Miscellaneous:?Caffeine: yes, frequency:, Coffee 2 cups per day. ?Children: yes. ?Exercise: yes, walking. ?Marital status: . ?Occupation: Retired- [employer]. * Medications:?TakingAspir-81 Atorvastatin Calcium Brilinta 90 MG Tablet 1 tablet Orally Twice a dayCarvedilol Cosentyx , Notes: Once a monthFurosemide 20 MG Tablet 1 tablet Orally Once a dayTaking Aspir-81 Taking Atorvastatin Calcium Taking Brilinta 90 MG Tablet 1 tablet Orally Twice a dayTaking Carvedilol Taking Cosentyx , Notes: Once a monthTaking Furosemide 20 MG Tablet 1 tablet Orally Once a dayNot-Taking/PRNLosartan Potassium 50 MG Tablet 1 tablet Orally Once a day, Notes: on holdGemtesa Medication List reviewed and reconciled with the patientNot- Taking/PRN Losartan Potassium 50 MG Tablet 1 tablet Orally Once a day, Notes: on holdNot-Taking/PRN Gemtesa Medication List reviewed and reconciled with the patient * Allergies:?N.K.D.A.yes[Aller gies Verified] Objective: * Vitals:?Ht: 5 ft 10 in, Wt:1 60, BMI: 22.96, Shoe size:8.5, Wt-k.57 kg. * Examination: ???General Examination: ?GENERAL APPEARANCE:?pleasant, alert, well nourished, well developed, well hydrated, with good attention to hygene/body habitus, and in no acute distress.?ORIENTED:?person,place, and time.?Neurological: ?SENSORY:?Neurological exam reveals intact sensorium, pain sensation normal, vibration sensation intact, pinprick sensation is normal in the lower extremities, Pt denies, anesthesia, burning, paresthesia, tingling, B/L.?BABINSKI REFLEX:?absent.?Vascular: ?DP PULSES:?2/4, B/L.?PT PULSES:? 1/4, B/L.?CAPILLARY FILL TIME:?3 secs. per digit, B/L.?SKIN TEMPERTURE GRADIENT OF THE LOWER EXTERMITIES:?warm to cool, proximal to distal, B/L.?HAIR GROWTH/TEXTURE/ELASTICITY/TURGOR:?normal, B/L.?PIGMENTATION:?normal, B/L.?EDEMA:?no edema, B/L.?TELANGECTASIA:?absent.?VARICOSITIES:?absent.?Dermatologic: ?SKIN FINDINGS:? Skin exam reveals Keratotic lesion(s) located at, Medial, 1st mtpj with multiple eccrine poroma.?Orthopedic: ?MUSCLE STRENGTH:?5/5 all groups in a symmetrical fashion , B/L.?GAIT ABNORMALITY:?pronated, abducted, B/L.?FOOT MORPHOLOGY:? Pes Planus structure, B/L--right more severe.?BUNION:? Medially prominent 1st MPJ, B/L, Lateral tracking 1st MPJ incompletely reducable, (+) Pain on palpation, LEFT is worse.?Nails: ?NAILS are:? Elongated, overgrown, dystrophic, lytic, greater than 3mm thick, discolored and friable with crumbly malodorous subungual debris, with pain on palpation, 1-5 B/L.? Assessment: * Assessment: 1.?Tinea unguium - B35.1 (Pr imary)?2.?Tinea pedis - B35.3?3.?Xerosis cutis - L85.3?4.?Pain in left toe(s) - M79.675?5.?Pain in right toe(s) - M79.674?6.?Skin disease - L98.9?7.?Hallux valgus (acquired), left foot - M20.12?8.?AK (actinic keratosis) - L57.0? Plan: * Treatment: * Procedures:?Debride Nail 6-10:?Nail debridement?Nail debridement performed extensively to reduce/remove overall nail length and girth, subungual debris, and necrotic tissue, by manual and electrical means with use of a nail nipper and/or dremel, to more viable healthy nail plate or bed tissue 6-10. Silver nitrate used for any petechial bleeding as necessary. Patient chooses, no pharmaceutical tx (36525).? * Procedure Codes:?84286 DEBRI DE NAIL, 6 OR MORE, Modifiers: XS * Follow Up:?3 Months * Images: * Sign off status: Completed true * Provider:?Luis Giraldo DPM Date:? 024 Generated for Vel santiago/Lori/Jackson on:?07/10/2024 08:12 PM EDT History and Physical Notes * HPI (History of Present Illness) Category Sub-Category Detail Notes Category Not es Painful Nails Misc: D is present; pt lives at [facility] Pt States Last PCP Visit: Date:: 05/22/2023 Skin problems Nature: tender, scaling, bleeding Location: Forefoot, Midfoot, H eel/Rearfoot, B/L Onset/Cause: shoe gear Aggravated by: any pressure, shoege ar Treatments: non-adherence with c ream Foot Pain Nature: aching, sharp, tenderness Location: Great toe joint, LEF T Duration: several weeks Course: worse Aggravated: any pressure, shoes Severity/Quality: moderate, severe Examination Category Sub-Category Detail Notes Category Not es Neurological SENSORY: Neurological exa m reveals intact sensorium, pain sensation normal, vibration sensation intact, pinprick sensation is normal in the lower extremities, Pt denies, anesthesia, burning, paresthesia, tingling, B/L BABINSKI REFLEX: absent Dermatologic SKIN FINDINGS: Skin exam reveal s Keratotic lesion(s) located at, Medial, 1st mtpj with multiple eccrine poroma Orthopedic GAIT ABNORMALITY: pronated, abducted, B/L FOOT MORPHOLOGY: Pes Planus structure , B/L--right more severe BUNION: Medially prominent 1 st MPJ, B/L, Lateral tracking 1st MPJ incompletely reducable, (+) Pain on palpation, LEFT is worse MUSCLE STRENGTH: 5/5 all groups in a symmetrical fashion , B/L General Examination GENERAL APPEARANCE: pleasant , alert, well nourished, well developed, well hydrated, with good attention to hygene/body habitus, and in no acute distress ORIENTED: person,place, and ti me Vascular DP PULSES (B): 2/4, B/L PT PULSES (B): 1/4, B/L CAPILLARY FILL TIME: 3 secs. per digit, B/L TEMPERTURE GRADIENT (C): warm to cool, p roximal to distal, B/L TROPHIC CONDITION-TEXTURE/ELASTICITY/TURGOR/HAIR GROWTH (B): normal, B/L EDEMA (C): no edema, B/L TELANGECTASIA: absent VARICOSITIES: absent PIGMENTATION: normal, B/L Nails NAILS are: Elongated, overg rown, dystrophic, lytic, greater than 3mm thick, discolored and friable with crumbly malodorous subungual debris, with pain on palpation, 1-5 B/L
--- OUTSIDE RECORDS SUMMARY | 2024-07-10 20:12 | XMS_ITS ---
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 Role Phone Leslie Gamble MD Primary Care Provider Flor Ragland Unavailable [phone] Allergies No Known Allergies REASON FOR VISIT Painful nail(s) aggravated by shoes causing difficulty standing/walking Medications Medication SIG (Take, Route, Frequency, Duration) Notes Start Date End Date Status Cosentyx Once a month Active Carvedilol Active Brilinta 90 MG 1 tablet Orally Twice a day Not-Taking Atorvastatin Calcium Active Aspir-81 Active Gemtesa Not-Taking Losartan Potassium 50 MG 1 tablet Orally Once a day for 30 day(s) on hold Not-Taking Furosemide 20 MG 1 tablet Orally Once a day for 30 day(s) Not-Taking Social History Tobacco Use: Social History [...] Signs Height 5 ft 10 in in 02/10/2024 Weight 160 lbs 02/10/2024 BMI 22.96 kg/m2 02/10/2024 Procedures Procedure Date Ordered Date Performed Result Body Sit e 00191-[id number] NAIL, 6 OR MORE 02/10/2024 N/A Encounters Encounter Location Date Provider Diagnosis [facility] [address] [place] [address] 02/10/2024 Flor Chavez Onychomycosis B35.1 ; Pain in right toe(s) M79.674 and Pain in left toe(s) M79.675 Assessments Encounter Date Diagnosis (ICD Code) Assessment Notes Treatment Notes Treatment Clinical Notes Section Notes 02/10/2024 Onychomycosis (ICD-10 - B35.1) 02/10/2024 Pain in right toe(s) (ICD-10 - M79.674) 02/10/2024 Pain in left toe(s) (ICD-10 - M79.675) Plan Of Treatment Pending Test Test Name Order Date [id number] NAIL, 6 OR MORE 02/10/2024 Next Appt Details Follow Up: 3 Months, Reason: Provider Name:Talon Ceron , 07/27/2024 03:30:00 PM, [address] [facility], [address], [place], [address], Procedure Notes * Category Sub-Category Detail Notes Debride Nail 6-10 Nail debridement Performance o f this nail treatment by a nonprofessional would put this patients foot and overall health at risk. Therefore, debridement to affected nail(s), as described in exam, was performed extensively to reduce/remove overall nail length, girth, thickness, subungual debris, and necrotic tissue, by manual and/or electrical means through the use of a nail nipper and/or dremel-type chili pepper grinder, to a more viable healthy nail plate or bed tissue 6-10. Silver nitrate used for any petechial bleeding as necessary. Definitive antifungal treatment options have been reviewed and discussed with the patient. The patient chooses, no pharmaceutical tx - 24582 Progress Notes * EFRAÍNTr TDOB: [birth year] (83 yo M)Acc No.[id number]:02/10/2024 Progress Note Patient:?Tr LAMB Provider:?Flor Chavez DPM :1940???Age:83 Y???Sex:Male Storm e:02/10/2024 Address:[address] [place], [place] [id number] Pcp:Leslie Gamble MD Subjective: * Chief Complaints: * ???Painful nail(s) aggravate d by shoes causing difficulty standing/walking * HPI: ???Painful Nails:?Pt States Last PCP Visit:?Date:?12/22/2023 * ROS:?General/Constitutional:?Nausea?denies.?Vomiting?denies.?Hunger Thirst?denies.?Loss appetite?denies.?Chills?denies.?Fatigue?denies.?Fever?denies.?Night Sweats?denies.?Unexplained weight loss?denies.?Unexplained [...] Detachment 1994,2000stent 02/2023 * Hospitalization/Major Diagno stic Procedure:?Denies Past Hospitalization * Family History:?Mother: dece asesameera butt, diagnosed with Unspecified essential hypertension, Unspecified heart disease, Other specified conditions influencing health status, Family history of arthritis.?Father: .?Spouse: .?Children: Breast Cancer, diagnosed with Other [...] walking. ?Marital status: . ?Occupation: Retired- [employer]. * Medications:?TakingAspir-81 Atorvastatin Calcium Carvedilol Cosentyx , Notes to Pharmacist: Once a monthTaking Aspir-81 Taking Atorvastatin Calcium Taking Carvedilol Taking Cosentyx , Notes to Pharmacist: Once a monthNot-Taking/PRNBrilinta 90 MG Tablet 1 tablet Orally Twice a day Furosemide 20 MG Tablet 1 tablet Orally Once a day Losartan Potassium 50 MG Tablet 1 tablet Orally Once a day , Notes to Pharmacist: on holdGemtesa Medication List reviewed and reconciled with the patientNot- Taking/PRN Brilinta 90 MG Tablet 1 tablet Orally Twice a day Not-Taking/PRN Furosemide 20 MG Tablet 1 tablet Orally Once a day Not-Taking/PRN Losartan Potassium 50 MG Tablet 1 tablet Orally Once a day , Notes to Pharmacist: on holdNot-Taking/PRN Gemtesa Medication List reviewed and reconciled with the patient * Allergies:?N.K.D.A.yes[Aller gies Verified] Objective: * Vitals:?Ht: 5 ft 10 in, Wt:1 60, BMI: 22.96, Shoe size:8.5, Wt-k.57 kg. * Examination: ???Nails: ?NAILS are:?Elongated, overgrown, dystrophic, lytic, greater than 3mm thick, discolored and friable with crumbly malodorous subungual debris, with pain on palpation, 1-5 B/L.?General Examination: ?GENERAL APPEARANCE:?pleasant, alert, well nourished, well developed, well hydrated, with good attention to hygene/body habitus, and in no acute distress, Pt accompanied by, Daughter, who serves as, additional Historian, and/who is physically present in exam room at time of visit.?ORIENTED:?person,place, and time.?Vascular: ?DP PULSES(B):?2/4, B/L.?PT PULSES(B):? 1/4, B/L.?CAPILLARY FILL TIME:?3 secs. per digit, B/L.?TROPHIC CONDITION-TEXTURE/ELASTICITY/TURGOR/HAIR GROWTH(B):?normal, B/L.?TEMPERTURE GRADIENT(C):?warm to cool, proximal to distal, B/L.?PIGMENTATION:?normal, B/L.?EDEMA(C):?no edema, B/L.?TELANGECTASIA:?absent.?VARICOSITIES:?absent.? Assessment: * Assessment: 1.?Pain in right toe(s) - M7 9.674???2.?Onychomycosis - B35.1 (Primary)???3.?Pain in left toe(s) - M79.675??? Plan: * Treatment: * Procedures:?Debride Nail 6-10:?Nail debridement?Performance of this nail treatment by a nonprofessional would put this patients foot and overall health at risk. Therefore, debridement to affected nail(s), as described in exam, was performed extensively to reduce/remove overall nail length, girth, thickness, subungual debris, and necrotic tissue, by manual and/or electrical means through the use of a nail nipper and/or dremel-type chili pepper grinder, to a more viable healthy nail plate or bed tissue 6-10. Silver nitrate used for any petechial bleeding as necessary. Definitive antifungal treatment options have been reviewed and discussed with the patient. The patient chooses, no pharmaceutical tx - 61786.? * Procedure Codes:?84665 DEBRI DE NAIL, 6 OR MORE * Follow Up:?3 Months * Images: * Sign off status: Completed true * Provider:?Flor Chavez DPM Date:?04/11/2023 Generated for Vel santiago/Lori/Jackson on:?07/10/2024 08:12 PM EDT History and Physical Notes * HPI (History of Present Illness) Category Sub-Category Detail Notes Category Not es Painful Nails Pt States Last PCP Visit: Date:: 12/22/2023 Examination Category Sub-Category Detail Notes Category Not es General Examination GENERAL APPEARANCE: pleasant , alert, well nourished, well developed, well hydrated, with good attention to hygene/body habitus, and in no acute distress, Pt accompanied by, Daughter, who serves as, additional Historian, and/who is physically present in exam room at time of visit ORIENTED: person,place, and ti me Vascular DP [...]
--- OUTSIDE RECORDS SUMMARY | 2024-07-10 20:12 | XMS_ITS | Continuity of Care Document ---
Author Organization [facility] Address [address] [place] [address]- Care Team Providers Care Paper Stripper Name Role Phone Leslie Gamble MD Primary Care Physician Encounter [facility] Date(s): 06/09/24 - 07/09/24 [facility] [address] [place] [id number] Attending Physician: Eliane Peralta Admitting Physician: Eliane Peralta Referring Physician: Eliane Prealta Encounter Type: Triage Allergies, Adverse Reactions, Alerts No Known Allergies Immunizations Given and Recorded Vaccine Date Status Refusal Reason influenza virus vaccine, inactivated 01/01/24 Teo rded influenza virus vaccine, inactivated 01/02/23 Teo rded influenza virus vaccine, inactivated 01/13/22 Teo rded influenza virus vaccine, inactivated 01/02/21 Teo rded influenza virus vaccine, inactivated 12/20/19 Teo rded influenza virus vaccine, inactivated 02/21/19 Give n influenza virus vaccine, inactivated 1 02/04/18 Gi sunita influenza virus vaccine, inactivated 01/07/17 Teo rded influenza virus vaccine, inactivated 03/07/16 Give n influenza virus vaccine, inactivated 12/25/14 Give n influenza virus vaccine, inactivated 11/25/12 Teo rded influenza virus vaccine, inactivated 02/26/10 Give n SARS-CoV-2 (COVID-19) mRNA BNT-162b2 vac 01/11/21 Recorded SARS-CoV-2 (COVID-19) mRNA BNT-162b2 vac 05/24/20 Recorded SARS-CoV-2 (COVID-19) mRNA BNT-162b2 vac 05/03/20 Recorded pneumococcal 13-valent vaccine 11/16/16 Given pneumococcal 13-valent vaccine 08/04/14 Given Fluzone (oldterm) 01/23/14 Given FluLaval (oldterm) 2 01/12/12 Given Fluzone Preservative-Free (oldterm) 01/03/11 Given influ virus vac, H1N1, inactive(oldterm) 03/28/09 Given Influenza Inactive (IM) (oldterm) 03/28/09 Given Influenza Virus Vaccine (oldterm) 3 01/22/08 Given Pneumococcal Vaccine (oldterm) 04/08/04 Given Tetanus-Diphth Toxoids, Adult (oldterm) 4 03/23/02 Given 1Result Comment: [02/04/2018] [facility]-[id number] 2Admin Note: Gave the VIS 09-22-2011 3Admin Note: Given at vegetable grader's office 4Admin Note: Manuf by [facility] biologic labs Medications aspirin 81 mg oral capsule 1 capsule = 81 mg, By Mouth, Every 24 hours, 0 Refills, Maintenance, 03/11/23 9:01:00 AM EST, Partial fill upon patient request if the prescription is for a schedule II opioid drug. Start Date: 03/11/23 Status: Ordered Repeat number: 1 atorvastatin 40 mg oral tablet 1 tablet, By Mouth, Daily, # 90 tablet, 1 Refills, Maintenance, 02/06/22 4:31:00 AM EST, [facility] STORE [id number], 178, cm, 12/27/21 10:54:00 EDT, Height Start Date: 02/06/22 Status: Ordered Quantity: 90.0 Unit: tablet Repeat number: 1 carvedilol 10 mg oral capsule, extended release See Instructions, 4 cap By Mouth Daily in AM, 0 Refills, Maintenance, 12/07/18 7:06:07 AM EDT Start Date: 12/07/18 Status: Ordered Repeat number: 1 Cosentyx 150 mg/mL subcutaneous solution Subcutaneous Infusion, once a month., 0 Refills, Maintenance, 10/27/18 11:23:29 AM EDT Start Date: 10/27/18 Status: Ordered Repeat number: 1 ofloxacin 0.3% ophthalmic solution INSTILL 1 DROP INTO LEFT EYE EVERY DAY Start Date: 07/21/22 Status: Ordered Repeat number: 1 traMADol 50 mg oral tablet 1 tablet = 50 mg, By Mouth, Every 8 hours, PRN Pain , Severe, for 7 days, # 21 tablet, 1 Refills, Acute 07/13/24 5:41:00 PM EDT, 06/29/24 5:41:00 PM EDT, [facility]/pharmacy #[id number], Partial fill upon patient request if the prescription is for a schedule II opioid drug., 178, cm, 06/06/24 15:30:00 EDT, Height Start Date: 06/29/24 Stop Date: 07/13/24 Status: Ordered Quantity: 21.0 Unit: tablet Repeat number: 2 Indication: Unspecified fracture of unspecified thoracic vertebra, initial encounter for closed fracture Vitamin D3 1000 intl units oral capsule 1 capsule = 25 mcg, By Mouth, Daily, # 75 capsule, 0 Refills, Maintenance, 06/07/24 5:46:00 PM EDT, Capsule, Partial fill upon patient request if the prescription is for a schedule II opioid drug. Start Date: 06/07/24 Status: Ordered Quantity: 75.0 Unit: capsule Repeat number: 1 Problem List Condition Confirmation Course Effective Dates Status H ealth Status Informant Adenomatous polyp 1 Confirmed 05/12/07 Active Cholelithiasis 2 Confirmed 12/02/07 Active Coronary artery disease Confirmed Active Diastolic congestive heart failure Confirmed Active Dyspnea Confirmed Active History of atrial flutter Confirmed Active Hypertension Confirmed Active Hypertensive Retinopathy Confirmed 10/29/11 Active Impaired fasting glucose Confirmed Active Urinary frequency Confirmed Active Interstitial lung disease 3 Confirmed Active MGUS (monoclonal gammopathy of unknown significance) Confirmed Active Osteoporosis Confirmed Active PA - Psoriatic arthritis 4, 5 Confirmed Active Left knee pain Confirmed Active Prostate carcinoma s/p XRT after rise in PSA after radical prostatctomy 6 Confirmed Active Right inguinal hernia Confirmed Active SACROILIITIS, NOT ELSEWHERE CLASSIFIED 7 Confirmed 12/02/07 Active Sleep apnea Confirmed 01/03/[address] Diop 2seen by abdominal CAT scan November 29, 2007 3Pulmonology thinks this may be due to methotrexate in the past 4psoriasis 5Dr. Velasco 6Dr. Courtney 7the patient had a CAT scan of his abdomen and pelvis November 29, 2007 and bilateral sacroiliitis with slight progression since May 2005 was seen. Social History Social History Type Response Smoking Status Former smoker; Type: Cigarettes; Started at age: 18; Stopped at age: 42; entered on: 12/02/16 Sex Sex Representation Male (finding) Patient Care team information Care Team Personnel Name: Leslie Gambel MD Position: S Physician - Primary Care Member Role: PCP Address: [address] [place] [address] Telecom: Care Team Related Persons Name: HORACE LOTT Name: KAMALA KENNY Name: EVERARDO BULL Insurance Providers Guarantor name: TERENCE KENNY Health Plan Information #: 1 Payer: MEDICARE PART B OUTPT Member Number: NA Policy Number: NA Group Number: NA Health Plan Information #: 2 Payer: [facility] Member Number: NA Policy Number: NA Group Number: NA
--- OUTSIDE RECORDS SUMMARY | 2024-07-10 20:12 | XMS_ITS | Clinical Summary ---
Author Organization [address] [place] [address] Address [address] [place] [address] Phone Care Team Providers Care Revenue Investigator Name Role Phone Leslie Gamble MD Primary Care Provider [phone] Allergies No known active allergies Medications atorvastatin (LIPITOR) 40 mg tablet Take 40 mg by mouth daily. Active secukinumab (Cosentyx Pen, 2 Pens,) 150 mg/mL pen injector Inject into the skin every 30 days. Active aspirin 81 mg chewable tablet Chew 1 tablet (81 mg total) 1 (one) time each day. Active traMADoL (ULTRAM) 50 mg tablet Take 1 tablet (50 mg total) by mouth. Active carvedilol CR (COREG CR) 20 mg 24 hr capsule Take 1 capsule (20 mg total) by mouth 1 (one) time each day. Do not crush or chew. 30 capsule 2 07/05/19 25 Active carvedilol CR (COREG CR) 40 mg 24 hr capsule TAKE 1 CAPSULE BY MOUTH EVERY DAY 09/02/19 24 025 Discontinued ticagrelor (Brilinta) 90 mg tablet Take 90 mg by mouth 2 times daily. 04/01/19 24 025 carvedilol CR (COREG CR) 40 mg 24 hr capsule TAKE 1 CAPSULE BY MOUTH EVERY DAY 90 capsule 2 06/22/19 25 025 Discontinued(Re order) carvedilol CR (COREG CR) 20 mg 24 hr capsule Take 1 capsule (20 mg total) by mouth 1 (one) time each day. Do not crush or chew. 07/05/19 25 025 Discontinued(Re order) Active Problems Problem Noted Date Diagnosed Date Chest pain 02/25/2023 Overview (02/29/2024): Last Assessment & Plan: Is atypical and not convincing for angina. He used to have a frequent PVCs up to 30% and now I do not see any PVC on EKG, not hearing any ectopic heartbeat by auscultation. It appears PVC has become rare or infrequent and wonder whether that could give him a new symptom. We will schedule 48-hour Holter monitor and asked him to document his symptoms. PVC (premature ventricular contraction) 08/07/19 Overview (02/29/2024): Last Assessment & Plan: I do not appreciate ectopic heartbeats with prolonged auscultation. Will continue carvedilol. Assessment & Plan (07/04/2024 2:57 PM EDT): No obvious PVCs by cardiac exam. Will reduce carvedilol dosage. Coronary artery disease 01/28/2021 Overview (02/29/2024): Last Assessment & Plan: Status post PCI of LAD. Is on Brilinta and aspirin. Would prefer dual antiplatelet for 1 year postprocedure. If he needs tooth extraction in a couple of months, Brilinta can be stopped. He will stay on aspirin permanently. Assessment & Plan (07/04/2024 2:57 PM EDT): Stable. He is on aspirin only. He has no symptoms to suggest coronary artery insufficiency. Will continue statin. I will reduce carvedilol ER to 20 mg daily to avoid lower blood pressure due to decreased oral intake and weight loss. Orders: ECG 12 lead Shortness of breath 01/28/2021 Overview (02/29/2024): Last Assessment & Plan: The shortness of breath is not very bothersome currently. I will discontinue furosemide due to borderline lower blood pressure sometimes. Assessment & Plan (07/04/2024 2:57 PM EDT): He has no resting dyspnea. Encounters Date Type Department Care Team Description 07/04/2024 2:00 PM EDT Office Visit [facility] [address] [facility] [address] [place] [address] Bri Jackson MD Coronary artery disease involving [place]k coronary artery of nan[place]k heart with other form of angina pectoris (CMS/HCC V24) (Primary Dx); PVC (premature ventricular contraction); Shortness of breath from Last 3 Months Social History Tobacco Use Types Packs/Day Years Used Date Smoking Tobacco: Former Smokeless Tobacco: Never Alcohol Use Standard Drinks/Week Comments Never 0 (1 standard drink = 0.6 oz pur e alcohol) Sex and Gender Information Value Date Recorded Sex Assigned at Not on file Legal Sex Male 6:33 PM EST Gender Identity Not on file Sexual Orientation Not on file Obstetrics History Last Filed Vital Signs Vital Sign Reading Time Taken Comments Blood Pressure 106/60 07/04/2024 1:54 PM EDT 120 /65 Pulse 64 07/04/2024 1:54 PM EDT Temperature - - Respiratory Rate - - Oxygen Saturation 95% 07/04/2024 1:54 PM EDT Inhaled Oxygen Concentration - - Weight 68.9 kg (152 lb) 07/04/2024 1:54 PM EDT Height 177.8 cm (5' 10 ) 07/04/2024 1:54 PM EDT Body Mass Index 21.81 07/04/2024 1:54 PM EDT Plan of Treatment Upcoming Encounters Date Type Department Care Team (Late st Contact Info) Description 02/02/2025 2:30 PM EST Office Visit [facility] [address] [facility] [address] [place] [address] Bri Jackson MD [address] [facility] [address] [place] [address] Health Maintenance Due Date Last Done Comments Zoster Vaccines (1 of 2) 1959 DTaP,Tdap,and Td Vaccines (2 - Td or Tdap) 03/23/2012 03/23/2002 RSV Immunization Adult Patients (1 - 1-dose 75+ series) 2016 Pneumococcal Vaccine: 50+ Years (3 of 3 - PPSV23, PCV20 or PCV21) 01/11/2017 11/16/2016, 08/04/2014, 04/08/2004 Cholesterol Screening (Lipid Panel) 02/22/2022 Depression Screening 02/22/2022 Falls Risk Assessment 02/22/2022 Social Influencers of Health Screening 02/22/2022 Medicare Annual Wellness Visit 11/11/2022 11/11/2021 COVID-19 Vaccine ( season) 2023 01/11/2021, 05/24/2020, 05/03/2020 Hypertension/CHF/CAD Annual BMP Blood Test 04/01/2024 04/01/2023 Influenza Vaccine Completed 01/01/2024, , 01/13/2022, Additional history exists HIB Vaccines Aged Out No longer eligi ble based on patient's age to complete this topic HPV Vaccines Aged Out No longer eligi ble based on patient's age to complete this topic Hepatitis A Vaccines Aged Out No long er eligible based on patient's age to complete this topic Hepatitis B Vaccines Aged Out No long er eligible based on patient's age to complete this topic IPV Vaccines Aged Out No longer eligi ble based on patient's age to complete this topic MMR Vaccines Aged Out No longer eligi ble based on patient's age to complete this topic Meningococcal ACWY Vaccine Aged Out N o longer eligible based on patient's age to complete this topic Meningococcal B Vaccine Aged Out No l onger eligible based on patient's age to complete this topic RSV Immunization Patients Under 20 months Aged Out No longer eligible based on patient's age to complete this topic Varicella Vaccines Aged Out No longer eligible based on patient's age to complete this topic Procedures Procedure Name Priority Date/Time Associated Diagnosis Comments ECG 12-LEAD Routine 07/04/2024 2:04 PM EDT Coronary artery disease involving [place] coronary artery of [place] heart with other form of angina pectoris (CMS/HCC V24) ANNUAL BMP BLOOD TEST Routine 04/01/2023 from Last 3 Months or Most Recently Relevant to Health Maintenance Results * ECG 12 lead (07/04/2024 2:04 PM EDT) Ventricular Rate ECG 64 BPM GEMUSE Atrial Rate 64 BPM GEMUSE P-R Interval 204 ms GEMUSE QRS Duration 134 ms GEMUSE Q-T Interval 432 ms GEMUSE QTc 445 ms GEMUSE P Wave [place] 35 degrees GEMUSE R [place] 45 degrees GEMUSE T [place] 37 degrees GEMUSE ECG Interpretation Normal sinus rhythm Right bundle branch block Abnormal ECG When compared with ECG of 04-DEC-2010 14:27, no chnage compared with previous one Confirmed by Jayce JACKSON YUFENG ([id number]) on 07/04/2024 2:42:08 PM GEMUSE 07/04/2024 2:04 PM EDT 07/04/2024 2:42 PM EDT Bri Jackson MD ECG ORDERABLES Final Result GEMUSE * Annual BMP Blood Test (04/01/2023) Pathologist [facility] Annual BMP Blood Test Abstracted Liana Provider HEALTH MAINTENANCE Final Result from Last 3 Months or Most Recently Relevant to Health Maintenance Insurance MEDICARE [facility] Care Teams Revenue Investigator Relationship Specialty Start Date End Date Leslie Gamble MD [address] [place] [address] [place] PCP - General 09/11/10
--- OUTSIDE RECORDS SUMMARY | 2024-07-10 20:12 | XMS_ITS | Patient Health Record ---
Author Organization [facility] Address [address] [facility] [place] [address] Care Team Providers Care Food Service Ambassador Name Role Phone Leslie Gamble MD Primary Care Provider Flor Ragland Unavailable [phone] Luis Giraldo Unavailable [phone] Allergies No Known Allergies Reason For Referral No Information Medications Medication SIG (Take, Route, Frequency, Duration) [...] Are you an other tobacco user? No Problems Problem Type SNOMED Code ICD Code Onset Dates Problem Status W/U Status Risk Notes Problem Acquired hallux valgus (18900911) Hallux valgus (acquired), left foot (M20.12) Active confirmed Vital Signs Height 5 ft 10 in in 02/10/2024 Weight 160 lbs 02/10/2024 BMI 22.96 kg/m2 02/10/2024 Procedures Procedure Date Ordered Date Performed Result Body Sit e [id number] NAIL, 6 OR MORE 02/10/2024 N/A Encounters Encounter Location Date [facility] [address] 08/04/2023 Luis Giraldo Tinea unguium B35.1 ; Tinea pedis B35.3 ; Xerosis cutis L85.3 ; Pain in left toe(s) M79.675 ; Pain in right toe(s) M79.674 ; Skin disease L98.9 ; Hallux valgus (acquired), 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 and AK (actinic keratosis) L57.[address] [facility] [address] 11/03/2023 Luis Giraldo Tinea unguium B35.1 ; Tinea pedis B35.3 ; Xerosis cutis L85.3 ; Pain in left toe(s) M79.675 ; Pain in right toe(s) M79.674 ; Skin disease L98.9 ; Hallux valgus (acquired), 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 and AK (actinic keratosis) L57.[address] [facility] [address] 02/10/2024 Flor Scott Onychomycosis B35.1 ; Pain in right toe(s) M79.674 and Pain in left toe(s) M79.675 Assessments Encounter Date Diagnosis (ICD Code) Assessment Notes Treatment Notes Treatment Clinical Notes Section Notes 08/04/2023 Tinea unguium (ICD-10 - B35.1) 08/04/2023 Tinea pedis (ICD-10 - B35.3) 11/03/2023 Tinea unguium (ICD-10 - B35.1) 11/03/2023 Tinea pedis (ICD-10 - B35.3) 02/10/2024 Pain in right toe(s) (ICD-10 - M79.674) 02/10/2024 Onychomycosis (ICD-10 - B35.1) 02/10/2024 Pain in left toe(s) (ICD-10 - M79.675) 11/03/2023 Xerosis cutis (ICD-10 - L85.3) 08/04/2023 Xerosis cutis (ICD-10 - L85.3) 08/04/2023 Pain in left toe(s) (ICD-10 - M79.675) 11/03/2023 Pain in left toe(s) (ICD-10 - M79.675) 11/03/2023 Pain in right toe(s) (ICD-10 - M79.674) 08/04/2023 Pain in right toe(s) (ICD-10 - M79.674) 08/04/2023 Skin disease (ICD-10 - L98.9) 11/03/2023 Skin disease (ICD-10 - L98.9) 11/03/2023 Hallux valgus (acquired), left foot (ICD-10 - M20.12) 08/04/2023 Hallux valgus (acquired), left foot (ICD-10 - M20.12) 08/04/2023 AK (actinic keratosis) (ICD-10 - L57.0) 11/03/2023 AK (actinic keratosis) (ICD-10 - L57.0) Plan Of Treatment Pending Test Test Name Order Date X ray : Foot, left 3V 10/03/2022 [id number] NAIL, 6 OR MORE 02/10/2024 Next Appt Details Provider Name:Talon Ceron , 07/27/2024 03:30:00 PM, [address] [facility], [place] [address], [place], [address], Insurance Providers Payer Name Payer Address Payer Phone Subscriber Number Group Number Insured Name Patient Relationship to Insured Coverage Start Date Coverage End Date Medicare [facility] [address] [place] [address] [id number] Tr Lamb Self - patient is the insured [facility] [address] [place] [address] [phone] [id number] Tr Lamb Self - patient is the insured Medical (General) History Medical History History ICD Code Arthritis Back,Hip,and Knee pain Cancer Heart disease High blood pressure Lung disease Osteoporosis Psoriasis/eczema Measles Psoriatic arthritis Surgical History Surgery Date(Month/Year) prostatectomy 06/2004 Bronchogenic Cyst -Afib Post Op Retina Detachment 1994,2000 stent 02/2023
[2024-07-10 20:15] LABS: Alanine Aminotransferase 43 U/L (0-40); Albumin Level 3.8 g/dL (3.5-5.0); Alkaline Phosphatase 80 U/L (39-117); Anion Gap 11 (12-20); Aspartate Amino Transferase 38 U/L (5-37); Bilirubin Direct 0.1 mg/dL (0.0-0.5); Bilirubin Total 0.4 mg/dL (0.0-1.0); Blood Urea Nitrogen 18 mg/dL (9-16); Calcium 8.9 mg/dL (8.4-10.2); Carbon Dioxide 28 mmol/L (22-29); Chloride 106 mmol/L (96-108); Creatinine Clr Calc Pharmacy 52.2; Estimated Glomerular Filt Rate > 60; Glucose Random 110 mg/dL (60-115); Potassium 4.1 mmol/L (3.3-5.1); Sodium 141 mmol/L (135-145); Total Protein 6.6 g/dL (6.5-8.0)
[2024-07-10 20:18] LABS: Basophils Percent Auto 0.6 % (0-2); Eosinophils Absolute Auto 0.1 X10*3/uL (0.0-0.4); Eosinophils Percent Auto 2.6 % (0-4); Hematocrit 37.6 % (42.0-52.0); Hemoglobin 12.1 g/dl (14.0-18.0); Imm Gran Abs Auto 0.02 X10*3/uL (0.00-0.03); Imm Gran Pct Auto 0.4 % (0.0-0.4); Lymphocytes Absolute Auto 1.1 X10*3/uL (1.2-4.9); Lymphocytes Percent Auto 23.9 % (20-40); Mean Corpuscular HGB Conc 32.2 g/dl (31.0-36.0); Mean Corpuscular Hemoglobin 29.4 pg (27.0-33.0); Mean Corpuscular Volume 91.3 fL (80.0-98.0); Mean Platelet Volume 9.7 fL (9.4-12.4); Monocytes Absolute Auto 0.3 X10*3/uL (0.1-1.2); Monocytes Percent Auto 6.2 % (2-11); Neutrophils Absolute Auto 3.1 x10*3/uL (2.0-8.3); Neutrophils Percent Auto 66.3 % (45-73); Platelet Count 196 X10*3/uL (160-400); Red Blood Count 4.12 X10*6/uL (4.60-5.80); Red Cell Distribution Width 15.3 % (11.0-16.0); White Blood Count 4.7 X10*3/uL (4.8-10.8)
[2024-07-10 20:22] LABS: Troponin-I High Sensitivity 5.4 ng/L (<3.5-35.0)
[2024-07-10] MEDS: iohexoL 350 MG/ML 100 ML INFUS..BTL 85 ML IV (20:51)
[2024-07-10 21:16] VITALS: BP 150/80; PULSE 75; TEMP 36.8; O2SAT 93
[2024-07-10 22:11] LABS: Troponin-I High Sensitivity 5.7 ng/L (<3.5-35.0)
[2024-07-10] MEDS: Lidocaine HCl 2 % Urojet 10 ML JEL.PF.APP TOPICAL (22:23)
--- NOTE | 2024-07-10 23:14 | PM.IMHP ---
History of Present Illness Date of Service: 07/10/24 Chief Complaint: Fall This is a 84-year-old male with pertinent history of CAD s/p stent, prostate cancer s/p prostatectomy, AFib status post ablation currently not on anticoagulation, diastolic heart failure currently not on diuretics, hypertension, psoriatic arthritis who presents to the emergency department for evaluation after a fall. Patient states he was trying to get inside his home but his jarrell was not working and he had difficulty unlocking the door when he lost his balance and fell backwards on his right side. He did not lose consciousness prior to the fall. No dizziness or lightheadedness prior to the fall. No chest pain or palpitations prior to the fall. No rhythmic jerking movement of extremities. Patient hit his head. He has been having right lower extremity pain since the fall. No fever, chills, chest pain, palpitations, shortness of breath, abdominal pain, changes in urinary or bowel habits. In the emergency department, imaging with intertrochanteric right hip fracture. Orthopedic surgery was consulted who requested medicine admission Review of Systems Constitutional: Constitutional: Reports no additional constitutional complaints Cardiovascular: Cardiovascular: Reports no additional cardiovascular complaints Respiratory: Respiratory: Reports no additional respiratory complaints Gastrointestinal: Gastrointestinal: Reports no additional gastrointestinal complaints Genitourinary: Genitourinary: Reports no additional male genitourinary complaints [facility] Medical History Hypertension Coronary artery disease Psoriatic arthritis Afib Diastolic heart failure Pertinent family history: Not significant due to age Social History Unable to assess alcohol history related to: Unable to respond Patient Tobacco Use Status: Tobacco use Unknown Smoked in Last 30 Days: No Use of substances other than those prescribed or required for medical reasons: No Advance Directives: No Advance Directives Information Provided: Yes Do you have a plan to hurt others: No Plan Nutrition Risks: No Nutritional Risk Meds Allergies Allergy/AdvReac Type Severity Reaction Status Date / Time No Known Allergies Allergy Verified 07/10/24 19:23 [No Known Allergies*] Home Medications ?Medication ?Instructions ?Recorded ?Confirmed ?Last Taken ?Type aspirin 81 mg tablet 81 mg PO DAILY 05/29/24 05/29/24 05/29/24 History atorvastatin 80 mg tablet 80 mg PO DAILY 05/29/24 05/29/24 05/29/24 History carvedilol 12.5 mg tablet 12.5 mg PO BID 05/29/24 05/29/24 05/29/24 History Physical Exam Vital Signs and Narrative: Vital Signs: Last Vital Signs Temp 98.3 F 07/10/24 21:16 Pulse 75 07/10/24 21:16 Resp 16 07/10/24 19:20 BP 150/80 H 07/10/24 21:16 Pulse Ox 93 07/10/24 21:16 O2 Del Method Room Air 07/10/24 21:16 BMI result Body Mass Index 21.5 Elderly male lying in bed in no distress Neck supple, no JVD Regular rate and rhythm, S1-S2 heard Regular breath sounds bilaterally, no wheezing or crackles appreciated Abdomen soft nontender, no guarding, no rigidity Patient is awake, alert and oriented x3; no focal motor deficit Psych: Normal mood Limited range of motion of right lower extremity due to pain Results Labs 07/10/24 19:52 07/10/24 19:52 Labs: Laboratory Results - last 24 hr 07/10/24 19:52 MCV 91.3 MCH 29.4 MCHC 32.2 RDW 15.3 Plt Count 196 MPV 9.7 Immature Gran % (Auto) 0.4 Neut % (Auto) 66.3 Lymph % (Auto) 23.9 [place] % (Auto) 6.2 Eos % (Auto) 2.6 Baso % (Auto) 0.6 Lymph # (Auto) 1.1 L [place] # (Auto) 0.3 Eos # (Auto) 0.1 Baso # (Auto) 0.0 Abs Immat Gran (auto) 0.02 Absolute Neuts (auto) 3.1 Absolute Nucleated RBC 0.000 Nucleated RBC % (auto) 0.0 Anion Gap 11 L Estim Creat Clear Calc 52.2 Estimated GFR > 60 Random Glucose 110 Calcium 8.9 D Total Bilirubin 0.4 Direct Bilirubin 0.1 AST 38 H ALT 43 H Alkaline Phosphatase 80 Total Protein 6.6 Albumin 3.8 Assessment and Plan (1) Closed fracture of right hip: Status: Acute Plan This is a 84-year-old male with pertinent history of CAD s/p stent, prostate cancer s/p prostatectomy, AFib status post ablation currently not on anticoagulation, diastolic heart failure currently not on diuretics, hypertension, psoriatic arthritis who presents to the emergency department for evaluation after a fall. #. Acute intertrochanteric right hip fracture due to mechanical fall: Will admit patient with IV opioids p.r.n. for analgesia. Consulted Orthopedic surgery, appreciate assistance. Will keep patient NPO #. Preoperative risk: RCRI score 2. Obtaining BNP #. CAD status post stent / Hypertension: On aspirin and high-intensity statin. Also on beta-maya #. Psoriatic arthritis: Outpatient follow-up #. Diastolic heart failure: No longer on diuretics as per the daughter. Med rec pending DVT prophylaxis: Mechanical Full code. Discussed with patient at bedside Admit as inpatient and will require two night minimum hospital stay for possible surgical management of right hip fracture (as above), which is not possible in a lesser acute setting. Orthopedic surgery consult pending Quality Stroke Does the patient have a stroke diagnosis?: No VTE Prior VTE?: No VTE Risk Level:: Medical - moderate - high VTE Device Contraindication: N/A - Device Ordered VTE Drug Contraindication: Treatment Not Indicated
[2024-07-11] VITALS (12 sets, daily range): BP systolic 100–171; BP diastolic 54–81; PULSE 50–75; RESP 12–20; TEMP 36.2–37.2; O2SAT 92–97
[2024-07-11] MEDS: Morphine Sulfate 4 MG/ML CARTRIDGE IVPUSH ×4 (01:53→20:26)
[2024-07-11] MEDS: 0.9 % Sodium Chloride Flush 3 ML SYRINGE IVFLUSH ×3 (07:31→20:10)
[2024-07-11] MEDS: carvediloL 12.5 MG TABLET PO ×2 (07:31→20:10)
--- NOTE | 2024-07-11 09:01 | MHC.CM.PN ---
Patient resting, CM assessment completed w/ daughter/HCP Saranya at bedside. IMM delivered. Patient comes from [facility]. Ambulates w/ a walker, also has a cane. Active w/ [facility] for PT. PCP Leslie Gamble MD HCP on file and verified. DP: Likely OR today, await PT eval post op. Goal is STR. Preferences are 1) [facility] and 2) [facility]. BLS transport. CM will continue to follow.
--- NOTE | 2024-07-11 09:04 | HO.ANESPROP2 ---
HPI - Anesthesia Eval Consult details Narrative: For right hip IM nail. PMFSH Active Problems Active Problems: All Active Problems Hypertension (Acute) Coronary artery disease (Acute) Psoriatic arthritis (Acute) Afib (Acute) Diastolic heart failure (Acute) Closed fracture of right hip (Acute) Past Medical History Medical History Hypertension Coronary artery disease Psoriatic arthritis Afib Diastolic heart failure Family History Family history of problems with anesthesia: No Surgical History History of Problems with Anesthesia: No Social History Social History Household Members: None Housing: Other Housing Other:: independant living facility Do you presently have visiting nurse or other home services: No Unable to assess alcohol history related to: Unable to respond Patient Tobacco Use Status: Former Tobacco user Tobacco use type: Cigarette Years Smoked: 20 e-Cigarette/Vaping Use: Former Use Second Hand Smoke Exposure: No service: No Meds Allergies Allergy/AdvReac Type Severity Reaction Status Date / Time No Known Allergies Allergy Verified 07/10/24 19:23 [No Known Allergies*] Active Medications: Current Medications Acetaminophen (Acetaminophen 325 Mg Tablet) 650 mg PO Q6H PRN PRN Reason: Pain, Mild 1-3,fever,headache Calcium Carbonate (Calcium Carbonate 750 Mg Tab.Chew) 750 mg PO Q4H PRN PRN Reason: Heartburn Carvedilol (Carvedilol 12.5 Mg Tablet) 12.5 mg PO BID [facility]; Protocol Last Admin: 07/11/24 07:31 Dose: 12.5 mg Magnesium Hydroxide (Milk Of Magnesia 30 Ml Oral.Susp) 30 ml PO DAILY PRN PRN Reason: Constipation Melatonin (Melatonin 3 Mg Tablet) 6 mg PO BEDTIME PRN PRN Reason: Insomnia Morphine Sulfate (Morphine Sulfate 4 Mg/Ml Cartridge) 4 mg IVPUSH Q4H PRN; Protocol PRN Reason: Pain, Severe (Pain Scale 7-10) Last Admin: 07/11/24 07:31 Dose: 4 mg Ondansetron HCl (Ondansetron Hcl 4 Mg/2 Ml Vial) 4 mg IVPUSH Q8H PRN PRN Reason: Nausea and Vomiting Sodium Chloride (0.9 % Sodium Chloride Flush 3 Ml Syringe) [facility] Last Admin: 07/11/24 07:31 Dose: 3 ml Home Medications ?Medication ?Instructions ?Recorded ?Confirmed ?Last Taken ?Type aspirin 81 mg chewable tablet 81 mg PO DAILY 07/11/24 07/11/24 07/10/24 History carvedilol phosphate 20 mg 20 mg PO DAILY 07/11/24 07/11/24 07/10/24 History capsule,[id number] multiphase docusate sodium 100 mg capsule 100 mg PO BID 07/11/24 07/11/24 Unknown History ketorolac 0.5 % eye drops 1 drp ophthalmic (eye) BID 07/11/24 07/11/24 07/10/24 History secukinumab 150 mg/mL subcutaneous 150 mg subcut QMONTH 07/11/24 07/11/24 06/21/24 History pen injector (Cosentyx Pen) tramadol 50 mg tablet 50 mg PO BID@0800,1600 PRN Pain 07/11/24 07/11/24 07/10/24 History Exam Height,Weight and Vital Signs: Height 5 ft 10 in Weight 68.039 kg Last Vital Signs Temp 97.8 F 07/11/24 07:08 Pulse 68 07/11/24 07:08 Resp 14 07/11/24 07:08 BP 159/77 H 07/11/24 07:08 Pulse Ox 93 07/11/24 07:08 O2 Del Method Room Air 07/11/24 07:08 Pertinent Lab Results Pertinent Lab Results: Laboratory Tests 07/10/24 07/10/24 19:52 21:43 WBC 4.7 L RBC 4.12 L Hgb 12.1 L Hct 37.6 L MCV 91.3 MCH 29.4 MCHC 32.2 RDW 15.3 Plt Count 196 MPV 9.7 Immature Gran % (Auto) 0.4 Neut % (Auto) 66.3 Lymph % (Auto) 23.9 [place] % (Auto) 6.2 Eos % (Auto) 2.6 Baso % (Auto) 0.6 Lymph # (Auto) 1.1 L [place] # (Auto) 0.3 Eos # (Auto) 0.1 Baso # (Auto) 0.0 Abs Immat Gran (auto) 0.02 Absolute Neuts (auto) 3.1 Absolute Nucleated RBC 0.000 Nucleated RBC % (auto) 0.0 Sodium 141 Potassium 4.1 Chloride 106 Carbon Dioxide 28 Anion Gap 11 L BUN 18 H Creatinine 1.03 Estim Creat Clear Calc 52.2 Estimated GFR > 60 Random Glucose 110 Calcium 8.9 D Total Bilirubin 0.4 Direct Bilirubin 0.1 AST 38 H ALT 43 H Alkaline Phosphatase 80 Troponin I High Sens 5.4 5.7 Total Protein 6.6 Albumin 3.8 Airway Mallampati Class: II TM Dist: >3cm Neck ROM: Full Loose/Missing/Broken Teeth: Yes, Upper and Lower Heart: ok Lungs: ok Other: Stent in 2022. No problems since. No angina. Presumably normal cardiac fxn per HCP (daughter). Assessment and Plan Assessment Anesthesia Assessment: Anesthesia Plan Discussed and Chart Reviewed Final Anesthetic Review Family History of Problems with Anesthesia: No History of Problems with Anesthesia: No NPO: Yes ASA Class: IV Final Preanesthetic Review: No Changes in Pt Med Stat, Meds/Allgs Chart Reviewed, Consent Obtained/Reviewed and Anes Risks/Benef Reviewed Patient Risk: High Procedure Risk: Low Anesthetic Plan Anesthetic Plan: Spinal and Agree w/ Assess. and Plan Disposition: Standard PACU
--- NOTE | 2024-07-11 09:22 | PHA.MEDREC ---
Pharmacy Consult ? Medication Reconciliation Pharmacy has completed the medication reconciliation. Spoke to family and patient at bedside, able to confirm medications. Family aware that we do not carry his form of carvedilol, and they will bring in later.
--- NOTE | 2024-07-11 09:28 | HO.PM.IMPN ---
Subjective Subjective Date of Service: 07/11/24 Interval History: Seen and evaluated this morning reporting pain right hip No fever or SOB no other events overnight Review of Systems Review of Systems: Yes all other systems are reviewed and are negative Physical Exam Vital Signs: Vital Signs: Last Vital Signs Temp 97.8 F 07/11/24 07:08 Pulse 68 07/11/24 07:08 Resp 14 07/11/24 07:08 BP 159/77 H 07/11/24 07:08 Pulse Ox 93 07/11/24 07:08 O2 Del Method Room Air 07/11/24 07:08 BMI result Body Mass Index 21.5 Const: Other: Constitutional : Awake, interactive, not in distress Neck : Normal inspection, Supple Cardiovascular : RRR, no JVP, no lower extremity edema Respiratory : good bilateral air entry, no crackles, wheezes or rhonchi Gastrointestinal: soft, lax, Normal bowel sounds, Non tender Skin : Warm, Dry Extremities: right leg shorter and externally rotated Neurological : Alert & oriented x3, No focal deficit Objective Data Active Medications Acetaminophen (Acetaminophen 325 Mg Tablet) 650 mg PO Q6H PRN PRN Reason: Pain, Mild 1-3,fever,headache Calcium Carbonate (Calcium Carbonate 750 Mg Tab.Chew) 750 mg PO Q4H PRN PRN Reason: Heartburn Carvedilol (Carvedilol 12.5 Mg Tablet) 12.5 mg PO BID [facility]; Protocol Last Admin: 07/11/24 07:31 Dose: 12.5 mg Documented By: ARIANA Docusate Sodium (Docusate Sodium 100 Mg Capsule) 100 mg PO BID [facility] Ketorolac Tromethamine (Ketorolac Tromethamine 0.5% Op 5 Ml Drops) 1 drop EYE-BOTH BID [facility] Magnesium Hydroxide (Milk Of Magnesia 30 Ml Oral.Susp) 30 ml PO DAILY PRN PRN Reason: Constipation Melatonin (Melatonin 3 Mg Tablet) 6 mg PO BEDTIME PRN PRN Reason: Insomnia Morphine Sulfate (Morphine Sulfate 4 Mg/Ml Cartridge) 4 mg IVPUSH Q4H PRN; Protocol PRN Reason: Pain, Severe (Pain Scale 7-10) Last Admin: 07/11/24 07:31 Dose: 4 mg Documented By: ARIANA Ondansetron HCl (Ondansetron Hcl 4 Mg/2 Ml Vial) 4 mg IVPUSH Q8H PRN PRN Reason: Nausea and Vomiting Sodium Chloride (0.9 % Sodium Chloride Flush 3 Ml Syringe) 3 ml IVFLUSH QSHIFT [facility] Last Admin: 07/11/24 07:31 Dose: 3 ml Documented By: ARIANA Labs 07/10/24 19:52 07/10/24 19:52 Labs: Laboratory Results - last 24 hr 07/10/24 19:52 MCV 91.3 MCH 29.4 MCHC 32.2 RDW 15.3 Plt Count 196 MPV 9.7 Immature Gran % (Auto) 0.4 Neut % (Auto) 66.3 Lymph % (Auto) 23.9 [place] % (Auto) 6.2 Eos % (Auto) 2.6 Baso % (Auto) 0.6 Lymph # (Auto) 1.1 L [place] # (Auto) 0.3 Eos # (Auto) 0.1 Baso # (Auto) 0.0 Abs Immat Gran (auto) 0.02 Absolute Neuts (auto) 3.1 Absolute Nucleated RBC 0.000 Nucleated RBC % (auto) 0.0 Anion Gap 11 L Estim Creat Clear Calc 52.2 Estimated GFR > 60 Random Glucose 110 Calcium 8.9 D Total Bilirubin 0.4 Direct Bilirubin 0.1 AST 38 H ALT 43 H Alkaline Phosphatase 80 Total Protein 6.6 Albumin 3.8 Assessment and Plan (1) Hypertension: Status: Acute (2) Closed fracture of right hip: Status: Acute (3) Coronary artery disease: Status: Acute (4) Diastolic heart failure: Status: Acute Plan This is a 84-year-old male with pertinent history of CAD s/p stent, prostate cancer s/p prostatectomy, AFib status post ablation currently not on anticoagulation, diastolic heart failure currently not on diuretics, hypertension, psoriatic arthritis who presents to the emergency department for evaluation after a fall. # Acute intertrochanteric right hip fracture due to mechanical fall IV opioids p.r.n. for analgesia Orthopedic surgery planning sugmatteo today NPO for now The patient carries mild-moderate amaris-operative risk for cardiopulmonary complications. no further testing needed at this point. # CAD status post stent , HTN Carvedilol, aspirin and high-intensity statin # AFib in Sinur rhythm, continue Carvedilol status post ablation currently not on anticoagulation # Diastolic heart failure: No longer on diuretics as per the daughter. DVT prophylaxis: Mechanical inpatient overnight hospital stay for possible surgical management of right hip fracture pending surgical intervention, which is not possible in a lesser acute setting. Quality Stroke Does the patient have a stroke diagnosis?: No VTE Prior VTE?: No VTE Risk Level:: Medical - moderate - high VTE Device Contraindication: N/A - Device Ordered VTE Drug Contraindication: Treatment Not Indicated
[2024-07-11 09:54] LABS: MANUAL DIFF FLAG NO
[2024-07-11 09:56] LABS: Basophils Percent Auto 0.5 % (0-2); Eosinophils Absolute Auto 0.2 X10*3/uL (0.0-0.4); Eosinophils Percent Auto 2.7 % (0-4); Hemoglobin 10.8 g/dl (14.0-18.0); Imm Gran Abs Auto 0.03 X10*3/uL (0.00-0.03); Imm Gran Pct Auto 0.5 % (0.0-0.4); Lymphocytes Absolute Auto 1.1 X10*3/uL (1.2-4.9); Lymphocytes Percent Auto 17.5 % (20-40); Mean Corpuscular HGB Conc 30.9 g/dl (31.0-36.0); Mean Corpuscular Hemoglobin 28.8 pg (27.0-33.0); Mean Corpuscular Volume 93.3 fL (80.0-98.0); Mean Platelet Volume 9.8 fL (9.4-12.4); Monocytes Absolute Auto 0.5 X10*3/uL (0.1-1.2); Monocytes Percent Auto 8.1 % (2-11); Neutrophils Absolute Auto 4.4 x10*3/uL (2.0-8.3); Neutrophils Percent Auto 70.7 % (45-73); Platelet Count 190 X10*3/uL (160-400); Red Blood Count 3.75 X10*6/uL (4.60-5.80); Red Cell Distribution Width 15.3 % (11.0-16.0); White Blood Count 6.3 X10*3/uL (4.8-10.8)
[2024-07-11 10:11] LABS: Anion Gap 10 (12-20); Blood Urea Nitrogen 18 mg/dL (9-16); Calcium 8.3 mg/dL (8.4-10.2); Carbon Dioxide 26 mmol/L (22-29); Chloride 107 mmol/L (96-108); Creatinine Clr Calc Pharmacy 54.9; Estimated Glomerular Filt Rate > 60; Glucose Random 110 mg/dL (60-115); Potassium 3.9 mmol/L (3.3-5.1); Sodium 139 mmol/L (135-145)
[2024-07-11 10:17] LABS: B Type Natriuretic Peptide 122 pg/mL (<100)
--- NOTE | 2024-07-11 11:52 | PM.OP ---
Brief Operative Note Date of Service: 07/11/24 Pre-op diagnosis: Right hip comminuted intertrochanteric fracture Post-op diagnosis: same Procedure: Open reduction and internal fixation of right hip comminuted intertrochanteric fracture with placement of a short gamma nail Implants: Markos short gamma nail measuring 11 mm in diameter by 180 mm in length with a 125 degree neck-shaft angle, a standard set screw, lag screw measuring 110 mm in length, distal locking bolt measuring 40 mm in length Surgeon: Brooks Peace MD Anesthesia: spinal Was an [employer] used for this Procedure?: No Estimated blood loss (mL): 100 Pathology: none sent Condition: stable Disposition: PACU
--- NOTE | 2024-07-11 11:53 | P.OP_ITS ---
Operative Note Operative Note Date of Service: 07/11/24 Narrative: After the patient was identified as Tr Lamb and his right hip was initialed by myself they were brought to the operating room where spinal anesthesia was induced by the anesthesiologist in routine fashion. The patient was given 2 g of IV Ancef for infection prophylaxis. The patient was then gently transferred from the hospital bed onto the fracture table. The patient's left lower extremity was placed into the well leg call. The patient's right lower extremity was placed in gentle in-line traction with their patella parallel to the floor. All bony prominences were well padded. C-arm AP and lateral radiographs were taken to confirm good fracture reduction. The patient's right hip region was prepped and draped in sterile fashion. A formal time-out was completed. A #10 scalpel blade was used to make a 5 cm incision just proximal to the tip of the greater trochanter. A curved cannulated awl was introduced into the proximal femur in routine fashion. A ball-tipped guidewire was then placed through the cannula and into the femoral canal. The awl was removed. Reaming was begun with a 9 mm reamer. Reaming was increased incrementally up to a size 13 reamer distally. The proximal canal was reamed with a 15.5 mm reamer. The gamma nail measuring 11 mm in diameter by 180 mm in length was passed over the guidewire. Good fracture reduction and nail positioning were confirmed using C-arm AP and lateral radiographs. A 2 cm incision was then made where the lag screw trocar met the patient's lateral thigh. The subcutaneous tissues and fascia thaddeus were split down to the lateral cortex of the femur using a hemostat. The lag screw trocar was passed down to the lateral cortex of the femur. A threaded guidewire was then placed into the femoral head in routine fashion. The guidewire measured 110 mm in length. Reaming was then performed over the guidewire to a depth of 110 mm. The lag screw measuring 110 mm in length was then placed over the guidewire. The guidewire was removed. The set screw was then placed into the nail and tightened fully. It was then turned 1/4 of a turn counter-clockwise to allow for fracture compression. A 2 cm incision was then made where the distal l ocking bolt trocar met the lateral aspect of the patient's thigh. The subcutaneous tissues and the fascia thaddeus were split down to the lateral cortex of the femur. The locking bolt hole was drilled in routine fashion. The drill bit measured 40 mm in length. The distal locking bolt measuring 40 mm in length was put into place without difficulty. All 3 wounds were irrigated with copious amounts of normal saline solution. The distal 2 wounds were closed with 2-0 Vicryl and skin cookie. The proximal wound was once again irrigated. The fascia thaddeus was closed with 0 Vicryl [id number] interrupted suture. The wound was once again irrigated. The subcutaneous tissues were closed with 2-0 Vicryl interrupted suture. The skin was closed with skin cookie. Dry sterile dressing was placed over all incisions. The patient was gently transferred from the fracture table onto their hospital bed. The patient was awake and alert. The patient was transferred to the recovery room in stable condition.
[2024-07-11] MEDS: ceFAZolin Sodium/Dextrose,Iso 2 GM/50 ML PIGGYBACK IV (17:30)
[2024-07-11] MEDS: Ketorolac Tromethamine 0.5% Op 5 ML DROPS 1 DROP EYE-BOTH (20:10)
[2024-07-11] MEDS: Docusate Sodium 100 MG CAPSULE PO (20:10)
[2024-07-11] MEDS: Aspirin 325 MG TABLET PO (20:10)
[2024-07-12] VITALS (7 sets, daily range): BP systolic 109–121; BP diastolic 55–64; PULSE 61–78; RESP 14–20; TEMP 36.3–37.3; O2SAT 92–96
[2024-07-12] MEDS: ceFAZolin Sodium/Dextrose,Iso 2 GM/50 ML PIGGYBACK IV (01:40)
[2024-07-12 05:47] LABS: MANUAL DIFF FLAG NO
[2024-07-12 05:51] LABS: Basophils Percent Auto 0.4 % (0-2); Eosinophils Absolute Auto 0.3 X10*3/uL (0.0-0.4); Hematocrit 28.6 % (42.0-52.0); Hemoglobin 9.1 g/dl (14.0-18.0); Imm Gran Abs Auto 0.02 X10*3/uL (0.00-0.03); Imm Gran Pct Auto 0.3 % (0.0-0.4); Lymphocytes Absolute Auto 1.2 X10*3/uL (1.2-4.9); Lymphocytes Percent Auto 17.4 % (20-40); Mean Corpuscular HGB Conc 31.8 g/dl (31.0-36.0); Mean Corpuscular Hemoglobin 29.1 pg (27.0-33.0); Mean Corpuscular Volume 91.4 fL (80.0-98.0); Mean Platelet Volume 9.8 fL (9.4-12.4); Monocytes Absolute Auto 0.6 X10*3/uL (0.1-1.2); Monocytes Percent Auto 8.1 % (2-11); Neutrophils Absolute Auto 4.9 x10*3/uL (2.0-8.3); Neutrophils Percent Auto 69.8 % (45-73); Platelet Count 154 X10*3/uL (160-400); Red Blood Count 3.13 X10*6/uL (4.60-5.80); Red Cell Distribution Width 15.5 % (11.0-16.0)
[2024-07-12 06:12] LABS: Anion Gap 10 (12-20)
--- NOTE | 2024-07-12 07:11 | PM.PNORT ---
Subjective Subjective Date of Service: 07/12/24 Interval history: Postop day 1 status post right hip IM nail Patient resting comfortably in bed this morning Pain well managed No acute events overnight No other acute complaints or concerns at this time Physical Exam Vital Signs: Vital Signs: Last Vital Signs Temp 98.2 F 07/12/24 06:57 Pulse 64 07/12/24 06:57 Resp 16 07/12/24 06:57 BP 112/55 L 07/12/24 06:57 Pulse Ox 96 07/12/24 06:57 O2 Del Method Nasal Cannula 07/12/24 06:57 O2 Flow Rate 2 07/12/24 06:57 BMI result Body Mass Index 21.5 Extrem: Other: Dressing on right hip clean, dry, intact No evidence of surrounding erythema, ecchymosis No evidence of infection Patient is able to flex and extend the digits of the left foot without difficulty Compartments soft, nontender Distal sensation intact Capillary refill brisk Procedures Date of Service Date of Service: 07/12/24 Progress Note: A&P Assessment and plan (1) Closed fracture of right hip: Status: Acute Plan 1. Status post right hip IM nail With Dr. Peace DOS 07/11/24 Continue pain management Continue aspirin PT/OT eval pending Dispo planning-PT/OT eval, medical clearance Continue with all other recommendations per Medicine Time Spent With Patient Time: Total time managing care of this patient today ____ minutes. Quality Stroke Does the patient have a stroke diagnosis?: No VTE Prior VTE?: No VTE Risk Level:: Medical - moderate - high VTE Device Contraindication: N/A - Device Ordered VTE Drug Contraindication: Treatment Not Indicated
[2024-07-12 08:22] LABS: Blood Urea Nitrogen 29 mg/dL (9-16); Calcium 8.1 mg/dL (8.4-10.2); Carbon Dioxide 26 mmol/L (22-29); Chloride 106 mmol/L (96-108); Creatinine Clr Calc Pharmacy 38.2; Estimated Glomerular Filt Rate 48; Glucose Random 125 mg/dL (60-115); Potassium 4.1 mmol/L (3.3-5.1); Sodium 138 mmol/L (135-145)
[2024-07-12] MEDS: Docusate Sodium 100 MG CAPSULE PO ×2 (08:22→20:14)
[2024-07-12] MEDS: Aspirin 325 MG TABLET PO ×2 (08:22→20:14)
[2024-07-12] MEDS: 0.9 % Sodium Chloride Flush 3 ML SYRINGE IVFLUSH ×3 (08:22→23:04)
[2024-07-12] MEDS: carvediloL 12.5 MG TABLET PO ×2 (08:22→20:14)
[2024-07-12] MEDS: Ketorolac Tromethamine 0.5% Op 5 ML DROPS 1 DROP EYE-BOTH ×2 (08:22→20:14)
--- NOTE | 2024-07-12 09:24 | HO.POSTANES ---
Post Anesthesia Evaluation Post Anesthesia Evaluation Date of Service: 07/12/24 Vital Signs: Vital Signs Temp Pulse Resp BP Pulse Ox O2 Del Method O2 Flow Rate 07/12/24 08:46 94 Room Air 07/12/24 06:57 98.2 F 64 16 112/55 L 96 Nasal Cannula 2 07/12/24 03:00 97.3 F 63 20 121/59 L 96 Nasal Cannula 2 07/11/24 23:00 98.2 F 73 20 117/64 94 Nasal Cannula 2 Anesthesia: Spinal Mental Status: Awake Pain Control: Satisfactory Nausea/Vomiting: None Hydration: Adequate Anesthesia-Related Issues: No Anes. Related Issues
--- NOTE | 2024-07-12 09:50 | P.PNIM_ITS ---
Subjective Subjective Date of Service: 07/12/24 Interval History: Seen and evaluated this morning right hip POD1 feels better No fever or SOB no other events overnight Review of Systems Review of Systems: Yes all other systems are reviewed and are negative Physical Exam 2 Vital Signs: Vital Signs: Last Vital Signs Temp 98.2 F 07/12/24 06:57 Pulse 64 07/12/24 06:57 Resp 16 07/12/24 06:57 BP 112/55 L 07/12/24 06:57 Pulse Ox 94 07/12/24 08:46 O2 Del Method Room Air 07/12/24 08:46 O2 Flow Rate 2 07/12/24 06:57 BMI result Body Mass Index 21.5 Const: Other: Constitutional : Awake, interactive, not in distress Neck : Normal inspection, Supple Cardiovascular : RRR, no JVP, no lower extremity edema Respiratory : good bilateral air entry, no crackles, wheezes or rhonchi Gastrointestinal: soft, lax, Normal bowel sounds, Non tender Skin : Warm, Dry Extremities: right leg surigcal wound clean and covered with dressing Neurological : Alert & oriented x3, No focal deficit Objective Data Active Medications Acetaminophen (Acetaminophen 325 Mg Tablet) 650 mg PO Q6H PRN PRN Reason: Pain, Mild 1-3,fever,headache Aspirin (Aspirin 325 Mg Tablet) 325 mg PO BID [facility] Last Admin: 07/12/24 08:22 Dose: 325 mg Documented By: ARIANA Calcium Carbonate (Calcium Carbonate 750 Mg Tab.Chew) 750 mg PO Q4H PRN PRN Reason: Heartburn Carvedilol (Carvedilol 12.5 Mg Tablet) 12.5 mg PO BID [facility]; Protocol Last Admin: 07/12/24 08:22 Dose: 12.5 mg Documented By: ARIANA Docusate Sodium (Docusate Sodium 100 Mg Capsule) 100 mg PO BID [facility] Last Admin: 07/12/24 08:22 Dose: 100 mg Documented By: ARIANA Ketorolac Tromethamine (Ketorolac Tromethamine 0.5% Op 5 Ml Drops) 1 drop EYE- BOTH BID [facility] Last Admin: 07/12/24 08:22 Dose: 1 drop Documented By: ARIANA Magnesium Hydroxide (Milk Of Magnesia 30 Ml Oral.Susp) 30 ml PO DAILY PRN PRN Reason: Constipation Melatonin (Melatonin 3 Mg Tablet) 6 mg PO BEDTIME PRN PRN Reason: Insomnia Morphine Sulfate (Morphine Sulfate 4 Mg/Ml Cartridge) 4 mg IVPUSH Q4H PRN; Protocol PRN Reason: Pain, Severe (Pain Scale 7-10) Last Admin: 07/11/24 20:26 Dose: 4 mg Documented By: ALLIE Ondansetron HCl (Ondansetron Hcl 4 Mg/2 Ml Vial) 4 mg IVPUSH Q8H PRN PRN Reason: Nausea and Vomiting Oxycodone HCl (Oxycodone Hcl Immed Release 5 Mg Tablet) 5 mg PO ONCE PRN PRN Reason: Pain, Moderate(Pain Scale 4-6) Sodium Chloride (0.9 % Sodium Chloride Flush 3 Ml Syringe) 3 ml IVFLUSH QSHIFT [facility] Last Admin: 07/12/24 08:22 Dose: 3 ml Documented By: ARIANA Labs 07/12/24 05:39 07/12/24 05:39 Labs: Laboratory Results - last 24 hr 07/11/24 07/12/24 09:06 05:39 MCV 93.3 91.4 MCH 28.8 29.1 MCHC 30.9 L 31.8 RDW 15.3 15.5 Plt Count 190 154 L MPV 9.8 9.8 Immature Gran % (Auto) 0.5 H 0.3 Neut % (Auto) 70.7 69.8 Lymph % (Auto) 17.5 L 17.4 L [place] % (Auto) 8.1 8.1 Eos % (Auto) 2.7 4.0 Baso % (Auto) 0.5 0.4 Lymph # (Auto) 1.1 L 1.2 [place] # (Auto) 0.5 0.6 Eos # (Auto) 0.2 0.3 Baso # (Auto) 0.0 0.0 Abs Immat Gran (auto) 0.03 0.02 Absolute Neuts (auto) 4.4 4.9 Absolute Nucleated RBC 0.000 0.000 Nucleated RBC % (auto) 0.0 0.0 Anion Gap 10 L 10 L Estim Creat Clear Calc 54.9 38.2 Estimated GFR > 60 48 Random Glucose 110 125 H Calcium 8.3 L D 8.1 L B-Natriuretic Peptide 122 H Assessment and Plan (1) Hypertension: Status: Acute (2) Closed fracture of right hip: Status: Acute (3) Coronary artery disease: Status: Acute Plan This is a 84-year-old male with pertinent history of CAD s/p stent, prostate cancer s/p prostatectomy, AFib status post ablation currently not on anticoagulation, diastolic heart failure currently not on diuretics, hypertension, psoriatic arthritis who presents to the emergency department for evaluation after a fall. # Acute intertrochanteric right hip fracture due to mechanical fall POD 1 hip IM nail feels better IV opioids p.r.n. for analgesia Orthopedic following PT eval Incentive Spirometry # CAD status post stent , HTN Carvedilol, aspirin and high-intensity statin # AFib in Sinus rhythm, continue Carvedilol status post ablation currently not on anticoagulation # Diastolic heart failure: No longer on diuretics as per the daughter. DVT prophylaxis: Aspirin 325 mg bid per orthopedic inpatient overnight hospital stay for post surgical management of right hip fracture pending PT eval and discharge planning Quality Stroke Does the patient have a stroke diagnosis?: No VTE Prior VTE?: No VTE Risk Level:: Medical - moderate - high VTE Device Contraindication: N/A - Device Ordered VTE Drug Contraindication: Treatment Not Indicated
[2024-07-12 10:26] LABS: Hematocrit 28.1 % (42.0-52.0); Hemoglobin 9.1 g/dl (14.0-18.0)
[2024-07-12] MEDS: Morphine Sulfate 4 MG/ML CARTRIDGE IVPUSH (12:50)
--- NOTE | 2024-07-12 14:42 | MHC.CM.PN ---
Patient s/p fall from [facility]. He is S/P R Femur FX with ORIF. A PT eval was completed today. The recommendation is for STR. [facility] has accepted the patient for STR. DP to [facility] for STR via BLS.
[2024-07-12] MEDS: Milk of Magnesia 30 ML ORAL.SUSP PO (17:30)
[2024-07-13 03:00] VITALS: BP 122/57; PULSE 61; RESP 18; TEMP 36.7; O2SAT 97
[2024-07-13] MEDS: Morphine Sulfate 4 MG/ML CARTRIDGE IVPUSH (03:42)
[2024-07-13 06:59] LABS: MANUAL DIFF FLAG NO
[2024-07-13 07:00] VITALS: BP 137/63; PULSE 58; RESP 16; TEMP 37.1; O2SAT 98
[2024-07-13 07:06] LABS: Basophils Percent Auto 0.2 % (0-2); Eosinophils Absolute Auto 0.3 X10*3/uL (0.0-0.4); Hematocrit 26.5 % (42.0-52.0); Hemoglobin 8.4 g/dl (14.0-18.0); Imm Gran Abs Auto 0.04 X10*3/uL (0.00-0.03); Imm Gran Pct Auto 0.6 % (0.0-0.4); Lymphocytes Absolute Auto 0.9 X10*3/uL (1.2-4.9); Lymphocytes Percent Auto 14.8 % (20-40); Mean Corpuscular HGB Conc 31.7 g/dl (31.0-36.0); Mean Corpuscular Hemoglobin 29.2 pg (27.0-33.0); Mean Platelet Volume 10.6 fL (9.4-12.4); Monocytes Absolute Auto 0.5 X10*3/uL (0.1-1.2); Monocytes Percent Auto 7.2 % (2-11); Neutrophils Absolute Auto 4.6 x10*3/uL (2.0-8.3); Neutrophils Percent Auto 73.2 % (45-73); Platelet Count 158 X10*3/uL (160-400); Red Blood Count 2.88 X10*6/uL (4.60-5.80); Red Cell Distribution Width 15.4 % (11.0-16.0); White Blood Count 6.3 X10*3/uL (4.8-10.8)
[2024-07-13 07:19] LABS: Anion Gap 10 (12-20); Blood Urea Nitrogen 34 mg/dL (9-16); Carbon Dioxide 27 mmol/L (22-29); Chloride 105 mmol/L (96-108); Creatinine Clr Calc Pharmacy 49.8; Estimated Glomerular Filt Rate > 60; Glucose Random 111 mg/dL (60-115); Potassium 4.3 mmol/L (3.3-5.1); Sodium 138 mmol/L (135-145)
[2024-07-13] MEDS: Aspirin 325 MG TABLET PO (08:00)
[2024-07-13] MEDS: Ketorolac Tromethamine 0.5% Op 5 ML DROPS 1 DROP EYE-BOTH (08:00)
[2024-07-13] MEDS: carvediloL 12.5 MG TABLET PO (08:01)
[2024-07-13] MEDS: Docusate Sodium 100 MG CAPSULE PO (08:01)
[2024-07-13] MEDS: 0.9 % Sodium Chloride Flush 3 ML SYRINGE IVFLUSH (08:08)
[2024-07-13] MEDS: oxyCODONE HCl Immed Release 5 MG TABLET PO (08:19)
[2024-07-13 09:00] VITALS: O2SAT 97
--- NOTE | 2024-07-13 10:09 | PM.DS ---
DS: Providers Provider Date of Service: 07/13/24 Date of admission: 07/10/24 22:21 Date of discharge: 07/13/24 Primary care physician: Leslie Gamble MD Consults: 07/10/24 23:23 Consult to Orthopedics Routine Consulting Provider: [facility] Reason for consultation: Right hip fracture DS: Diagnosis Discharge Diagnosis (1) Hypertension: Status: Acute (2) Closed fracture of right hip: Status: Acute (3) Coronary artery disease: Status: Acute DS: Summary Hospital Course Hospital Course: from initial hpi: 84-year-old male with pertinent history of CAD s/p stent, prostate cancer s/p prostatectomy, AFib status post ablation currently not on anticoagulation, diastolic heart failure currently not on diuretics, hypertension, psoriatic arthritis who presents to the emergency department for evaluation after a fall. Patient states he was trying to get inside his home but his jarrell was not working and he had difficulty unlocking the door when he lost his balance and fell backwards on his right side. He did not lose consciousness prior to the fall. No dizziness or lightheadedness prior to the fall. No chest pain or palpitations prior to the fall. No rhythmic jerking movement of extremities. Patient hit his head. He has been having right lower extremity pain since the fall. No fever, chills, chest pain, palpitations, shortness of breath, abdominal pain, changes in urinary or bowel habits. In the emergency department, imaging with intertrochanteric right hip fracture. Orthopedic surgery was consulted who requested medicine admission hospital course: Patient was admitted for fall complicated by acute intertrochanteric right hip fracture. Underwent intramedullary nailing, perioperative. Unremarkable will be discharged to nursing home facility. We will continue aspirin for 6 weeks for DVT prophylaxis and follow up with Orthopedics in 2 weeks. For coronary artery disease status post stent was continued on carvedilol, aspirin, statin. For paroxysmal AFib was continued on carvedilol, no longer on anticoagulation after ablation. For chronic diastolic CHF patient euvolemic and no longer on diuretics. Time Attestation Discharge Coordination Time (in mins): 32 Quality: Safe Use of Opioids Does Pt have an Active Cancer Diagnosis on the Problem List?: No Quality: Stroke Does the patient have a stroke diagnosis?: No Physical Exam Vital Signs: Vital Signs: Last Vital Signs Temp 98.8 F 07/13/24 07:00 Pulse 58 07/13/24 07:00 Resp 16 07/13/24 07:00 BP 137/63 07/13/24 07:00 Pulse Ox 97 07/13/24 09:00 O2 Del Method Nasal Cannula 07/13/24 09:00 O2 Flow Rate 3 07/13/24 03:00 Oxygen Flow Rate 3 07/13/24 09:00 BMI result Body Mass Index 21.5 Const: Other: Constitutional : Awake, interactive, not in distress Neck : Normal inspection, Supple Cardiovascular : RRR, no JVP, no lower extremity edema Respiratory : good bilateral air entry, no crackles, wheezes or rhonchi Gastrointestinal: soft, lax, Normal bowel sounds, Non tender Skin : Warm, Dry Extremities: right leg surigcal wound clean and covered with dressing Neurological : Alert & oriented x3, No focal deficit DS: Data Data Completed and Pending Labs on day of discharge: Laboratory Results - last 24 hr 07/12/24 07/13/24 09:54 05:36 WBC 6.3 RBC 2.88 L Hgb 9.1 L 8.4 L Hct 28.1 L 26.5 L MCV 92.0 MCH 29.2 MCHC 31.7 RDW 15.4 Plt Count 158 L MPV 10.6 Immature Gran % (Auto) 0.6 H Neut % (Auto) 73.2 H Lymph % (Auto) 14.8 L [place] % (Auto) 7.2 Eos % (Auto) 4.0 Baso % (Auto) 0.2 Lymph # (Auto) 0.9 L [place] # (Auto) 0.5 Eos # (Auto) 0.3 Baso # (Auto) 0.0 Abs Immat Gran (auto) 0.04 H Absolute Neuts (auto) 4.6 Absolute Nucleated RBC 0.000 Nucleated RBC % (auto) 0.0 Sodium 138 Potassium 4.3 Chloride 105 Carbon Dioxide 27 Anion Gap 10 L BUN 34 H Creatinine 1.08 Estim Creat Clear Calc 49.8 Estimated GFR > 60 Random Glucose 111 Calcium 8.0 L Discharge Plan Discharge Anticipated Discharge Date/Time: 07/13/24 10:07 Patient Disposition: Xfer SNF Discharge Diagnosis: hip fracture Referrals: Leslie Gamble MD [Primary Care Provider] - 1 Week Terrence Barriga PA-C [Physician Manager Chemistry] - 07/29/24 11:45 am (07/29/24 at 11:45am with Terrence) Discharge Medications: New aspirin 325 mg Tablet 325 mg PO BID Qty: 0 0RF oxycodone 5 mg Tablet 5 mg PO Q6H PRN (Reason: Pain, Severe (Pain Scale 7-10)) Qty: 10 0RF Rx Instructions: Partial Fill upon patient request. Continued tramadol 50 mg tablet 50 mg PO BID@0800,1600 PRN (Reason: Pain) carvedilol phosphate 20 mg capsule, ER multiphase 24 hr 20 mg PO DAILY ketorolac 0.5 % drops 1 drp ophthalmic (eye) BID docusate sodium 100 mg Capsule 100 mg PO BID Cosentyx Pen 150 mg/mL pen injector 150 mg SUBCUT QMONTH Held aspirin 81 mg Tablet,Chewable 81 mg PO DAILY Hold Instructions: Resume on 08/23/24. Discharge Orders: Discharge Order (Routine); Ordered 07/13/24 Ordered By: Kj Goodwin Diet: Advance to usual diet Activity on Discharge: As tolerated Stand Alone Forms: Patient Portal Discharge page Print Language: Cambodian Care Plan Goals: Gait training, strengthening, ADLs Continue ASA for dvt ppx x6 weeks Keep dressing clean, dry and intact-no showering or tub baths Follow up with Orthopedics in 2 weeks Health Concerns: hip fracture Plan of Treatment: see above Assessment: see above
[2024-07-13 11:00] VITALS: BP 100/54; PULSE 63; RESP 18; TEMP 36.6; O2SAT 93
--- NOTE | 2024-07-13 11:03 | MHC.CM.PN ---
PT DCD TODAY TO [facility] NOTIFIED
== END 2024-07-13 11:58 | disposition skilled nursing facility (03) | DRG 481 ==
LOC: HO.ED 22:50 → HO.EDOVER 22:53 → HO.S3 23:02
PROVIDERS: Orthopaedic Surgery; Physician Assistant Medical; Student in an Organized Health Care Education/Training Program; Admitting Provider Student in an Organized Health Care Education/Training Program; Emergency Provider Emergency Medicine; PCP Internal Medicine; Visit Provider Internal Medicine
PROC: 0QS606Z Reposition Right Upper Femur with Intramedullary Internal Fixation Device, Open Approach (ICD-10-PCS; principal; 2024-07-11 09:00)
DX: S72.141A Displaced intertrochanteric fracture of right femur, initial encounter for closed fracture (principal); I50.32 Chronic diastolic (congestive) heart failure; W19.XXXA Unspecified fall, initial encounter; I25.10 Atherosclerotic heart disease of native coronary artery without angina pectoris; I11.0 Hypertensive heart disease with heart failure; L40.50 Arthropathic psoriasis, unspecified; Z95.5 Presence of coronary angioplasty implant and graft; Z87.891 Personal history of nicotine dependence; Z85.46 Personal history of malignant neoplasm of prostate; Z90.79 Acquired absence of other genital organ(s); Z79.82 Long term (current) use of aspirin; Z79.899 Other long term (current) drug therapy
CPT/HCPCS: 36415; 70450; 71260; 72125; 73502; 73552; 74177; 80048; 80076; 83880; 84484; 85014; 85018; 85025; 93005; 97162; 97166; 97530; 99285; C1713; J0690; J2003; J2270; J2704; J3010; Q9967

== ENCOUNTER → 2024-07-10 19:36 | Outpatient (BNV) | payer MEDICARE, OTHER, SELFPAY | PROVIDERS: Emergency Provider Emergency Medicine; PCP Internal Medicine; Visit Provider Student in an Organized Health Care Education/Training Program | DX: R10.2 Pelvic and perineal pain (principal); S72.001A Fracture of unspecified part of neck of right femur, initial encounter for closed fracture; M25.551 Pain in right hip; Z03.89 Encounter for observation for other suspected diseases and conditions ruled out; S09.90XA Unspecified injury of head, initial encounter | CPT/HCPCS: 70450; 71260; 72125; 73502; 73552; 74177 ==

== ENCOUNTER → 2024-07-10 19:36 | Outpatient (BNV) | payer MEDICARE, OTHER, SELFPAY | PROVIDERS: Admitting Provider Student in an Organized Health Care Education/Training Program; Emergency Provider Emergency Medicine; PCP Internal Medicine; Visit Provider Internal Medicine | DX: I45.10 Unspecified right bundle-branch block (principal) | CPT/HCPCS: 93010 ==

== ENCOUNTER → 2024-07-10 22:21 | Outpatient (BNV) | payer MEDICARE, OTHER, SELFPAY | PROVIDERS: Admitting Provider Student in an Organized Health Care Education/Training Program; Emergency Provider Emergency Medicine; PCP Internal Medicine; Visit Provider Student in an Organized Health Care Education/Training Program | DX: I10 Essential (primary) hypertension (principal); S72.001A Fracture of unspecified part of neck of right femur, initial encounter for closed fracture; I25.10 Atherosclerotic heart disease of native coronary artery without angina pectoris | CPT/HCPCS: 99222; 99232; 99239 ==

== ENCOUNTER → 2024-07-10 22:21 | Outpatient (BNV) | payer MEDICARE, OTHER, SELFPAY | PROVIDERS: Admitting Provider Student in an Organized Health Care Education/Training Program; Emergency Provider Emergency Medicine; PCP Internal Medicine; Visit Provider Orthopaedic Surgery | DX: S72.001A Fracture of unspecified part of neck of right femur, initial encounter for closed fracture (principal) | CPT/HCPCS: 99024 ==

== ENCOUNTER 2024-07-29 10:17 | Outpatient (REF) | payer MEDICARE, OTHER, SELFPAY ==
--- NOTE | ~2024-07-29 | XR_ITS ---
EXAMINATION: XR FEMUR, RIGHT CLINICAL INFORMATION: S72.90XA - Unspecified fracture of unspecified femur, initial encounter ... COMPARISON: July 10, 2024. TECHNIQUE: AP and lateral views of the right femur were obtained. FINDINGS: There is an intramedullary evelyn from the greater trochanter to the proximal diaphysis anchor with a femoral head neck and proximal diaphysis screws. Instability during fracture. No gross loosening. Skin cookie. Degenerative changes in the medial lateral compartments of the right knee. Multiple vascular clips in the pelvis. XR/XR femur RT 2V IMPRESSION: Status post open reduction internal fixation of a comminuted intertrochanteric fracture right femur. Electronically signed by: Nicolas Mcclure MD 07/29/2024 12:14 PM EDT
--- OUTSIDE RECORDS SUMMARY | 2024-08-02 11:24 | XMS_ITS | Encounter Summary ---
Author Organization [facility] Address [address] [place] [address] Care Team Providers Care Hog Confinement System Manager Name Role Phone Leslie Gamble MD Primary Care Provider [phone] Encounter Details Date Type Department Care Team (Latest Contact Info) Description 07/16/[address] [facility] - Main Lab 299 [facility] [place] [address] Salty Barber MD [address] [place] [phone] Encounter for other orthopedic aftercare; Displaced [...] Description 02/02/2025 2:30 PM EST Office Visit [facility] - [facility] [address] [facility] [address] [place] [phone] Bri Jackson MD 300 [facility] [address] [place] [address] documented as of this encounter Procedures Procedure Name Priority Date/Time Associated Diagnosis Comments COMPLETE BLOOD COUNT Routine 07/16/2024 8:41 AM EDT Encounter for other orthopedic aftercare Displaced intertrochanteric fracture of right femur, sequela Essential (primary) hypertension documented in this encounter Results * (ABNORMAL) Complete blood count (07/16/2024 8:41 AM EDT) WBC 5.9 4.8 - 10.8 K/mcL LAB HEMETOLOGY METHOD 07/16/2024 11:30 AM [facility] RBC 2.90(L) 4.50 - 5.50 M/mcL LAB HEMETOLOGY METHOD 07/16/2024 11:30 AM [facility] Hemoglobin 8.4(L) 13.5 - 17.5 g/dL LAB HEMETOLOGY METHOD 07/16/2024 11:30 AM [facility] Hematocrit 27.7(L) 42.0 - 54.0 % LAB HEMETOLOGY METHOD 07/16/2024 11:30 AM [facility] MCV 95.2 79.0 - 98.0 FL LAB HEMETOLOGY METHOD 07/16/2024 11:30 AM [facility] MCH 28.9 27.0 - 32.0 pcg LAB HEMETOLOGY METHOD 07/16/2024 11:30 AM [facility] MCHC 30.3(L) 32.0 - 37.0 g/dL LAB HEMETOLOGY METHOD 07/16/2024 11:30 AM [facility] RDW 15.1(H) 11.0 - 15.0 % LAB HEMETOLOGY METHOD 07/16/2024 11:30 AM [facility] Platelets 262 130 - 400 K/mcL LAB HEMETOLOGY METHOD 07/16/2024 11:30 AM [facility] MPV 10.4 7.0 - 11.0 FL LAB HEMETOLOGY METHOD 07/16/2024 11:30 AM EDT [facility] NRBC 0.0 <1.0 % LAB HEMETOLOGY METHOD 07/16/2024 11:30 AM EDT [facility] NRBC Absolute 0.00 <0.10 K/mcL LAB HEMETOLOGY METHOD 07/16/2024 11:30 AM EDT [facility] Blood Venous blood specimen / Unknown Venipuncture / Unknown 07/16/2024 8:41 AM EDT 07/16/2024 10:37 AM EDT us Salty Barber MD LAB BLOOD ORDERABLES Final Resu lt [facility] [address] [place] [address], documented in this encounter Visit Diagnoses Diagnosis Encounter for other orthopedic aftercare Displaced intertrochanteric fracture of right femur, sequela Essential (primary) hypertension Unspecified essential hypertension documented in this encounter Care Teams Hog Confinement System Manager Relationship Specialty Start Date End Date Leslie Gamble MD [address] [place] [address] PCP - General 09/11/10 documented as of this encounter
--- OUTSIDE RECORDS SUMMARY | 2024-08-02 11:24 | XMS_ITS ---
Author Organization [facility] Address [address] [place] [address] Care Team Providers Care Model And Mold Maker Plaster Name Role Phone Leslie Gamble MD Primary Care Provider Talon Srivastava [phone] REASON FOR VISIT Cx 07/27/24 appt Encounters Encounter Location Date [facility] [address] 07/25/2024 Talon Ceron Plan Of Treatment No Information Progress Notes * PANDATr Ruiz TDOB: [birth year] (84 yo M)Acc No.[id number]:07/25/2024 Patient:?Tr KENNY :1940???Age:84 Y???Sex:Male Address:[address] [place] [address], [phone] * true * Date:? Generated for Michi pamela/Lori/eTransmitting on:?08/02/2024 11:24 AM EDT
--- OUTSIDE RECORDS SUMMARY | 2024-08-02 11:24 | XMS_ITS | Encounter Summary ---
Author Organization [employer] Address [address] [place] [address] Care Team Providers Care Activity Therapy Teacher Name Role Phone Leslie Gamble MD Primary Care Provider [phone] Encounter Details Date Type Department Care Team (Latest Contact Info) Description 07/15/2024 Lab Requisition [facility] - Main Lab 299 [facility] [place] [address] Salty Barber MD [address] [place] [phone] Essential (primary) hypertension; 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; Chronic diastolic [...] Description 02/02/2025 2:30 PM EST Office Visit [facility] - [facility] [address] [facility] [address] [place] [address] Bri Jackson MD [address] [place] [address] documented as of this encounter Procedures Procedure Name Priority Date/Time Associated Diagnosis Comments COMPLETE BLOOD COUNT Routine 07/18/2024 5:30 AM EDT Essential (primary) hypertension 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 Chronic diastolic (congestive) heart failure (CMS/HCC V24, CMS/HCC V28) Displaced intertrochanteric fracture of right femur, subsequent encounter for closed fracture with routine healing COMPREHENSIVE METABOLIC PANEL Routine 07/18/2024 5:30 AM EDT Essential (primary) hypertension 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 Chronic diastolic (congestive) heart failure (CMS/HCC V24, CMS/HCC V28) Displaced intertrochanteric fracture of right femur, subsequent encounter for closed fracture with routine healing documented in this encounter Results * (ABNORMAL) Comprehensive metabolic panel (07/18/2024 5:30 AM EDT) Sodium 140 133 - 145 mmol/L LAB CHEMISTRY METHOD 07/18/2024 12:54 PM [facility] Potassium 4.7 3.5 - 5.5 mmol/L LAB CHEMISTRY METHOD 07/18/2024 12:54 PM [facility] Chloride 107 96 - 110 mmol/L LAB CHEMISTRY METHOD 07/18/2024 12:54 PM [facility] CO2 29 21 - 32 mmol/L LAB CHEMISTRY METHOD 07/18/2024 12:54 PM [facility] Anion Gap 4 3 - 11 LAB CHEMISTRY METHOD 07/18/2024 12:54 PM [facility] Glucose 89 70 - 100 mg/dL LAB CHEMISTRY METHOD 07/18/2024 12:54 PM [facility] BUN 22 5 - 25 mg/dL LAB CHEMISTRY METHOD 07/18/2024 12:54 PM [facility] Creatinine 0.88 0.70 - 1.30 mg/dL LAB CHEMISTRY METHOD 07/18/2024 12:[address] [facility] eGFR 85 >=60 mL/min/1. 73m2 LAB CHEMISTRY METHOD 07/18/2024 12:54 PM [facility] Comment:Calculation based on the??Chronic Kidney Disease Epidemiology Collaboration (CKD-EPI) equation refit??without adjustment for race. BUN/Creatinine Ratio 25.0 LAB CHEMISTRY METHOD 07/18/2024 12:[address] [facility] Calcium 8.1(L) 8.5 - 10.5 mg/dL LAB CHEMISTRY METHOD 07/18/2024 12:54 PM [facility] AST (SGOT) 21 10 - 42 unit/L LAB CHEMISTRY METHOD 07/18/2024 12:54 PM [facility] ALT (SGPT) 21 10 - 60 unit/L LAB CHEMISTRY METHOD 07/18/2024 12:54 PM [facility] Alkaline Phosphatase 63 42 - 121 unit/L LAB CHEMISTRY METHOD 07/18/2024 12:54 PM [facility] Total Protein 5.5(L) 6.0 - 8.0 g/dL LAB CHEMISTRY METHOD 07/18/2024 12:54 PM [facility] Albumin 2.7(L) 3.2 - 5.0 g/dL LAB CHEMISTRY METHOD 07/18/2024 12:54 PM [facility] Total Bilirubin 0.8 0.0 - 1.4 mg/dL LAB CHEMISTRY METHOD 07/18/2024 12:54 PM [facility] Blood Venous blood specimen / Unknown Venipuncture / Unknown 07/18/2024 5:30 AM EDT 07/18/2024 10:14 AM EDT us Salty Barber MD LAB BLOOD ORDERABLES Final Resu lt [facility] [address] [place] [address], * (ABNORMAL) Complete blood count (07/18/2024 5:30 AM EDT) [facility] WBC 5.8 4.8 - 10.8 K/mcL LAB HEMETOLOGY METHOD 07/18/2024 11:[address] [facility] RBC 2.70(L) 4.50 - 5.50 M/mcL LAB HEMETOLOGY METHOD 07/18[facility]2024 11[facility] Hemoglobin 7.6(L) 13.5 - 17.5 g/dL LAB HEMETOLOGY METHOD 07/18/2024 11:20 AM [facility] Hematocrit 25.9(L) 42.0 - 54.0 % LAB HEMETOLOGY METHOD 07/18/2024 11:20 AM [facility] MCV 97.7 79.0 - 98.0 FL LAB HEMETOLOGY METHOD 07/18/2024 11:20 AM [facility] MCH 28.7 27.0 - 32.0 pcg LAB HEMETOLOGY METHOD 07/18/2024 11:20 AM [facility] MCHC 29.3(L) 32.0 - 37.0 g/dL LAB HEMETOLOGY METHOD 07/18/2024 11:20 AM [facility] RDW 15.6(H) 11.0 - 15.0 % LAB HEMETOLOGY METHOD 07/18/2024 11:20 AM [facility] Platelets 286 130 - 400 K/mcL LAB HEMETOLOGY METHOD 07/18/2024 11:20 AM [facility] MPV 9.9 7.0 - 11.0 FL LAB HEMETOLOGY METHOD 07/18/2024 11:20 AM [facility] NRBC 0.0 <1.0 % LAB HEMETOLOGY METHOD 07/18/2024 11:[address] [facility] NRBC Absolute 0.00 <0.10 K/mcL LAB HEMETOLOGY METHOD 07/18/2024 11:[address] [facility] Blood Venous blood specimen / Unknown Venipuncture / Unknown 07/18/2024 5:30 AM EDT 07/18/2024 10:14 AM EDT us Salty Barber MD LAB BLOOD ORDERABLES Final Resu lt [facility] [address] [place] [address], documented in this encounter Visit Diagnoses Diagnosis Essential (primary) hypertension Unspecified essential hypertension 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
--- OUTSIDE RECORDS SUMMARY | 2024-08-02 11:24 | XMS_ITS | Patient Health Record ---
Author Organization [facility] Address [address] [facility] [place] [address] Care Team Providers Care Manager Hi Name Role Phone Leslie Gamble MD Primary Care Provider UnavailTalon Mcgovern Unavailable [phone] Luis Giraldo Unavailable [phone] Flor Chavez Unavailable [phone] Allergies No Known Allergies Reason For Referral [...] Ordered Date Performed Result Body Sit e [id number] NAIL, 6 OR MORE 02/10/2024 N/A Encounters Encounter Location Date Provider Diagnosis [place] [address] [address] 08/04/2023 Luis Giraldo Tinea unguium B35.1 ; Tinea pedis B35.3 ; Xerosis cutis L85.3 ; Pain in left toe(s) M79.675 ; Pain in right toe(s) M79.674 ; Skin disease L98.9 ; Hallux valgus (acquired), 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 and [place] (actinic keratosis) L57.[address] [address] 11/03/2023 Luis Giraldo Tinea unguium B35.1 ; Tinea pedis B35.3 ; Xerosis cutis L85.3 ; Pain in left toe(s) M79.675 ; Pain in right toe(s) M79.674 ; Skin disease L98.9 ; Hallux valgus (acquired), 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 and [place] (actinic keratosis) L57.[address] [address] 02/10/2024 Flor Scott Onychomycosis B35.1 ; Pain in right toe(s) M79.674 and Pain in left toe(s) M79.[address] [address] 07/25/2024 Talon Ceron Assessments Encounter Date Diagnosis [...] X ray : Foot, left 3V 10/03/2022 [id number] NAIL, 6 OR MORE 02/10/2024 Insurance Providers Payer Name Payer Address Payer Phone Subscriber Number Group Number Insured Name Patient Relationship to Insured Coverage Start Date Coverage End Date Medicare National Govt Sv[employer] Inc [address] [facility] [place] [facility] [place] [address] [id number] Tr Lamb Self - patient is the insured Socitive ([employer]) [address] [place] [address] [id number] Tr Lamb Self - patient is the insured Medical (General) History Medical History History ICD Code Arthritis Back,Hip,and Knee pain Cancer Heart disease High blood pressure Lung disease Osteoporosis Psoriasis/eczema Measles Psoriatic arthritis Surgical History Surgery Date(Month/Year) prostatectomy 06/2004 Bronchogenic Cyst -Afib Post Op Retina Detachment 1994,2000 stent 02/2023
--- OUTSIDE RECORDS SUMMARY | 2024-08-02 11:25 | XMS_ITS ---
Author Organization [facility] Address [address] [facility] [address] Care Team Providers Care Musician Instrumental Name Role Phone Leslie Gamble MD Primary Care Provider Talon Srivastava Unavailable [phone] Encounters Encounter Location Date Provider [facility] [address] [place] [address] 07/27/2024 Talon Ceron Plan Of Treatment No Information Progress Notes * Tr LAMB TDOB: [birth year] (84 yo M)Acc No.[id number]:07/27/2024 Progress Note Patient:Tr LATHAM Provider:?Talon Ceron DPM :1940???Age:84 Y???Sex:Male Storm e:07/27/2024 Address:[address] [place], [place] [address] Pcp:Leslie Gamble MD Subjective: * Chief Complaints: [...] Ceron DPM Date:?2024 Generated for Vel santiago/Lori/eTransmitting on:?08/02/2024 11:24 AM EDT
--- OUTSIDE RECORDS SUMMARY | 2024-08-02 11:25 | XMS_ITS | Encounter Summary ---
Author Organization [facility] Address [address] [place] [address] Care Team Providers Care Safety Instructor Name Role Phone Leslie Gamble MD Primary Care Provider [phone] Encounter Details Date Type Department Care Team (Latest Contact Info) Description 07/14/2024 Lab Requisition [facility] - Main Lab 299 [facility] [place] [address] Salty Barber MD [address] [place] [address] Essential (primary) hypertension; Displaced intertrochanteric fracture [...] Description 02/02/2025 2:30 PM EST Office Visit [facility] - [facility] [address] [facility] [address] [place] [address] Bri Jackson MD [address] [facility] [address] [place] [address] documented as of this encounter Procedures Procedure [...] mmol/L LAB CHEMISTRY METHOD 07/14/2024 10:45 AM [facility] Potassium 3.9 3.5 - 5.5 mmol/L LAB CHEMISTRY METHOD 07/14/2024 10:45 AM [facility] Chloride 102 96 - 110 mmol/L LAB CHEMISTRY METHOD 07/14/2024 10:45 AM [facility] CO2 30 21 - 32 mmol/L LAB CHEMISTRY METHOD 07/14/2024 10:45 AM [facility] Anion Gap 6 3 - 11 LAB CHEMISTRY METHOD 07/14/2024 10:45 AM [facility] Glucose 97 70 - 100 mg/dL LAB CHEMISTRY METHOD 07/14/2024 10:45 AM [facility] BUN 42(H) 5 - 25 mg/dL LAB CHEMISTRY METHOD 07/14/2024 10:45 AM [facility] Creatinine 1.24 0.70 - 1.30 mg/dL LAB CHEMISTRY METHOD 07/14/2024 10:45 AM [facility] eGFR 58(L) >=60 mL/min/1. 73m2 LAB CHEMISTRY METHOD 07/14/2024 10:45 AM [facility] Comment:Calculation based on the??Chronic Kidney Disease Epidemiology Collaboration (CKD-EPI) equation refit??without adjustment for race. BUN/Creatinine Ratio 33.9 LAB CHEMISTRY METHOD 07/14/2024 10:45 AM [facility] Calcium 7.6(L) 8.5 - 10.5 mg/dL LAB CHEMISTRY METHOD 07/14/2024 10:45 AM [facility] AST (SGOT) 26 10 - 42 unit/L LAB CHEMISTRY METHOD 07/14/2024 10:45 AM [facility] ALT (SGPT) 20 10 - 60 unit/L LAB CHEMISTRY METHOD 07/14/2024 10:45 AM [facility] Alkaline Phosphatase 54 42 - 121 unit/L LAB CHEMISTRY METHOD 07/14/2024 10:45 AM [facility] Total Protein 5.2(L) 6.0 - 8.0 g/dL LAB CHEMISTRY METHOD 07/14/2024 10:45 AM [facility] Albumin 2.5(L) 3.2 - 5.0 g/dL LAB CHEMISTRY METHOD 07/14/2024 10:45 AM [facility] Total Bilirubin 0.6 0.0 - 1.4 mg/dL LAB CHEMISTRY METHOD 07/14/2024 10:45 AM [facility] Blood Venous blood specimen / Unknown Venipuncture / Unknown 07/14/2024 4:51 AM EDT 07/14/2024 10:12 AM EDT us Salty Barber MD LAB BLOOD ORDERABLES Final Resu lt [facility] [address] [place] [address], * (ABNORMAL) Complete blood count (07/14/2024 4:51 AM EDT) WBC 5.8 4.8 - 10.8 K/mcL LAB HEMETOLOGY METHOD 07/14/2024 10:21 AM [facility] RBC 2.50(L) 4.50 - 5.50 M/mcL LAB HEMETOLOGY METHOD 07/14/2024 10:21 AM [facility] Hemoglobin 7.4(L) 13.5 - 17.5 g/dL LAB HEMETOLOGY METHOD 07/14/2024 10:21 AM [facility] Hematocrit 23.3(L) 42.0 - 54.0 % LAB HEMETOLOGY METHOD 07/14/2024 10:21 AM [facility] MCV 92.1 79.0 - 98.0 FL LAB HEMETOLOGY METHOD 07/14/2024 10:21 AM [facility] MCH 29.2 27.0 - 32.0 pcg LAB HEMETOLOGY METHOD 07/14/2024 10:21 AM [facility] MCHC 31.8(L) 32.0 - 37.0 g/dL LAB HEMETOLOGY METHOD 07/14/2024 10:21 AM [facility] RDW 15.4(H) 11.0 - 15.0 % LAB HEMETOLOGY METHOD 07/14/2024 10:21 AM [facility] Platelets 168 130 - 400 K/mcL LAB HEMETOLOGY METHOD 07/14/2024 10:21 AM [facility] MPV 10.7 7.0 - 11.0 FL LAB HEMETOLOGY METHOD 07/14/2024 10:21 AM [facility] NRBC 0.0 <1.0 % LAB HEMETOLOGY METHOD 07/14/2024 10:21 AM [facility] NRBC Absolute 0.00 <0.10 K/mcL LAB HEMETOLOGY METHOD 07/14/2024 10:21 AM [facility] Blood Venous blood specimen / Unknown Venipuncture / Unknown 07/14/2024 4:51 AM EDT 07/14/2024 10:12 AM EDT Salty Barber MD LAB BLOOD ORDERABLES Final Resu lt [facility] [address] [place] [address], documented in this encounter Visit Diagnoses Diagnosis Essential (primary) hypertension Unspecified essential hypertension Displaced intertrochanteric fracture of right femur, subsequent encounter for closed fracture with routine healing documented in this encounter Care Teams Safety Instructor Relationship Specialty Start Date End Date Leslie Gamble MD [address] [place] [address] PCP - General 09/11/10 documented as of this encounter
--- OUTSIDE RECORDS SUMMARY | 2024-08-02 11:25 | XMS_ITS ---
Author Organization [facility] Address [address] [place] [address] Care Team Providers Care Nuclear Plant Construction Worker Name Role Phone Leslie Gamble MD Primary Care Provider Talon Srivastava Unavailable [phone] Flor Chavez [phone] Encounters Encounter Location Date Provider Diagnosis [address] [address] 2024 Flor Chavez Plan Of Treatment No Information Progress Notes * Tr LAMB TDOB: [birth year] (84 yo M)Acc No.[id number]:2024 Progress Note Patient:Tr LATHAM Provider:?Flor Chavez DPM :1940???Age:84 Y???Sex:Male Storm e:2024 Address:[address] [place] [address] Pcp:Leslie Gamble MD Subjective: * Chief Complaints: [...] DPM Date:?0 2024 Generated for Printi ng/Faxing/eTransmitting on:?08/02/2024 11:25 AM EDT
--- OUTSIDE RECORDS SUMMARY | 2024-08-02 11:25 | XMS_ITS | Encounter Summary ---
Author Organization [facility] Address [address] [place] [address] Care Team Providers Care Film Recordist Name Role Phone Leslie Gamble MD Primary Care Provider [phone] Encounter Details Date Type Department Care Team (Latest Contact Info) Description 07/23/2024 Lab Requisition [facility] - Main Lab 299 [facility] [place] [address] Salty Barber MD [address] [place] [address] Essential (primary) hypertension; Atherosclerotic heart disease of [place] coronary artery without angina pectoris; Chronic diastolic [...] Description 02/02/2025 2:30 PM EST Office Visit [facility] - [facility] [address] [facility] [address] [place] [address] Bri Jackson MD [address] [place] [address] documented as of this encounter Procedures Procedure Name Priority Date/Time Associated Diagnosis Comments COMPLETE BLOOD COUNT Routine 07/25/2024 5:25 AM EDT Essential (primary) hypertension Atherosclerotic heart disease of [place] coronary artery without angina pectoris Chronic diastolic (congestive) heart failure (CMS/HCC V24, CMS/HCC V28) Displaced intertrochanteric fracture of right femur, subsequent encounter for closed fracture with routine healing COMPREHENSIVE METABOLIC PANEL Routine 07/25/2024 5:25 AM EDT Essential (primary) hypertension Atherosclerotic heart disease of [place] coronary artery without angina pectoris Chronic diastolic (congestive) heart failure (CMS/HCC V24, CMS/HCC V28) Displaced intertrochanteric fracture of right femur, subsequent encounter for closed fracture with routine healing documented in this encounter Results * (ABNORMAL) Comprehensive metabolic panel (07/25/2024 5:25 AM EDT) Sodium 142 133 - 145 mmol/L LAB CHEMISTRY METHOD 07/25/2024 9:45 AM [facility] Potassium 5.0 3.5 - 5.5 mmol/L LAB CHEMISTRY METHOD 07/25/2024 9:45 AM [facility] Chloride 109 96 - 110 mmol/L LAB CHEMISTRY METHOD 07/25/2024 9:45 AM [facility] CO2 27 21 - 32 mmol/L LAB CHEMISTRY METHOD 07/25/2024 9:45 AM [facility] Anion Gap 6 3 - 11 LAB CHEMISTRY METHOD 07/25/2024 9:45 AM [facility] Glucose 85 70 - 100 mg/dL LAB CHEMISTRY METHOD 07/25/2024 9:45 AM [facility] BUN 18 5 - 25 mg/dL LAB CHEMISTRY METHOD 07/25/2024 9:45 AM [facility] Creatinine 0.84 0.70 - 1.30 mg/dL LAB CHEMISTRY METHOD 07/25/2024 9:45 AM [facility] eGFR 87 >=60 mL/min/1. 73m2 LAB CHEMISTRY METHOD 07/25/2024 9:45 AM [facility] Comment:Calculation based on the??Chronic Kidney Disease Epidemiology Collaboration (CKD-EPI) equation refit??without adjustment for race. BUN/Creatinine Ratio 21.4 LAB CHEMISTRY METHOD 07/25/2024 9:45 AM [facility] Calcium 8.1(L) 8.5 - 10.5 mg/dL LAB CHEMISTRY METHOD 07/25/2024 9:45 AM [facility] AST (SGOT) 22 10 - 42 unit/L LAB CHEMISTRY METHOD 07/25/2024 9:45 AM [facility] ALT (SGPT) 20 10 - 60 unit/L LAB CHEMISTRY METHOD 07/25/2024 9:45 AM [facility] Alkaline Phosphatase 138(H) 42 - 121 unit/L LAB CHEMISTRY METHOD 07/25/2024 9:45 AM [facility] Comment:Results verified by repeat testing Total Protein 5.8(L) 6.0 - 8.0 g/dL LAB CHEMISTRY METHOD 07/25/2024 9:45 AM [facility] Albumin 3.0(L) 3.2 - 5.0 g/dL LAB CHEMISTRY METHOD 07/25/2024 9:45 AM [facility] Total Bilirubin 0.5 0.0 - 1.4 mg/dL LAB CHEMISTRY METHOD 07/25/2024 9:45 AM [facility] Blood Venous blood specimen / Unknown Venipuncture / Unknown 07/25/2024 5:25 AM EDT 07/25/2024 8:25 AM EDT us Salty Barber MD LAB BLOOD ORDERABLES Final Resu lt [facility] [address] [place] [address], * (ABNORMAL) Complete blood count (07/25/2024 5:25 AM EDT) WBC 5.9 4.8 - 10.8 K/mcL LAB HEMETOLOGY METHOD 07/25/2024 8:46 AM EDT [facility] RBC 2.80(L) 4.50 - 5.50 M/mcL LAB HEMETOLOGY METHOD 07/25/2024 8:46 AM EDT [facility] Hemoglobin 8.4(L) 13.5 - 17.5 g/dL LAB HEMETOLOGY METHOD 07/25/2024 8:46 AM EDT [facility] Hematocrit 27.9(L) 42.0 - 54.0 % LAB HEMETOLOGY METHOD 07/25/2024 8:46 AM EDT [facility] MCV 98.6(H) 79.0 - 98.0 FL LAB HEMETOLOGY METHOD 07/25/2024 8:46 AM EDT [facility] MCH 29.7 27.0 - 32.0 pcg LAB HEMETOLOGY METHOD 07/25/2024 8:[facility] MCHC 30.1(L) 32.0 - 37.0 g/dL LAB HEMETOLOGY METHOD 07/25/2024 8:46 AM EDT [facility] RDW 18.0(H) 11.0 - 15.0 % LAB HEMETOLOGY METHOD 07/25/2024 8:46 AM EDT [facility] Platelets 386 130 - 400 K/mcL LAB HEMETOLOGY METHOD 07/25/2024 8:46 AM EDT [facility] MPV 9.5 7.0 - 11.0 FL LAB HEMETOLOGY METHOD 07/25/2024 8:46 AM EDT [facility] NRBC 0.0 <1.0 % LAB HEMETOLOGY METHOD 07/25/2024 8:46 AM EDT [facility] NRBC Absolute 0.00 <0.10 K/mcL LAB HEMETOLOGY METHOD 07/25/2024 8:46 AM EDT [facility] Blood Venous blood specimen / Unknown Venipuncture / Unknown 07/25/2024 5:25 AM EDT 07/25/2024 8:32 AM EDT us Salty Barber MD LAB BLOOD ORDERABLES Final Resu lt [facility] [address] [place] [address], documented in this encounter Visit Diagnoses Diagnosis Essential (primary) hypertension Unspecified essential hypertension Atherosclerotic heart disease of [place] coronary artery without angina pectoris Chronic diastolic (congestive) heart failure (CMS/HCC V24, CMS/HCC V28) Displaced intertrochanteric fracture of right femur, subsequent encounter for closed fracture with routine healing documented in this encounter Care Teams Film Recordist Relationship Specialty Start Date End Date Leslie Gamble MD [address] [place] [address] PCP - General 09/11/10 documented as of this encounter
--- OUTSIDE RECORDS SUMMARY | 2024-08-02 11:25 | XMS_ITS | Encounter Summary ---
Author Organization [employer] Address [address] [place] [address] Care Team Providers Care Automobile Service Station Manager Name Role Phone Leslie Gamble MD Primary Care Provider [phone] Encounter Details Date Type Department Care Team (Latest Contact Info) Description 07/27/2024 Lab Requisition [facility] - Main Lab 299 [facility] [place] [address] Salty Barber MD [address] [place] [address] Essential (primary) hypertension; Atherosclerotic heart disease of [place] coronary artery without angina pectoris; Chronic diastolic [...] Description 02/02/2025 2:30 PM EST Office Visit [facility] - [facility] [address] [facility] [address] [place] [address] Bri Jackson MD [address] [place] [address] documented as of this encounter Procedures Procedure Name Priority Date/Time Associated Diagnosis Comments COMPLETE BLOOD COUNT Routine 07/28/2024 5:12 AM EDT Essential (primary) hypertension Atherosclerotic heart disease of [place] coronary artery without angina pectoris Chronic diastolic (congestive) heart failure (CMS/HCC V24, CMS/HCC V28) Displaced intertrochanteric fracture of right femur, subsequent encounter for closed fracture with routine healing BASIC METABOLIC PANEL Routine 07/28/2024 5:10 AM EDT Essential (primary) hypertension Atherosclerotic heart disease of [place] coronary artery without angina pectoris Chronic diastolic (congestive) heart failure (CMS/HCC V24, CMS/HCC V28) Displaced intertrochanteric fracture of right femur, subsequent encounter for closed fracture with routine healing documented in this encounter Results * (ABNORMAL) Complete blood count (07/28/2024 5:12 AM EDT) WBC 5.1 4.8 - 10.8 K/mcL LAB HEMETOLOGY METHOD 07/28/2024 9:07 AM [facility] RBC 2.90(L) 4.50 - 5.50 M/mcL LAB HEMETOLOGY METHOD 07/28/2024 9:07 AM [facility] Hemoglobin 8.5(L) 13.5 - 17.5 g/dL LAB HEMETOLOGY METHOD 07/28/2024 9:07 AM [facility] Hematocrit 28.6(L) 42.0 - 54.0 % LAB HEMETOLOGY METHOD 07/28/2024 9:07 AM [facility] MCV 99.0(H) 79.0 - 98.0 FL LAB HEMETOLOGY METHOD 07/28/2024 9:07 AM [facility] MCH 29.4 27.0 - 32.0 pcg LAB HEMETOLOGY METHOD 07/28/2024 9:07 AM [facility] MCHC 29.7(L) 32.0 - 37.0 g/dL LAB HEMETOLOGY METHOD 07/28/2024 9:07 AM EDT [facility] RDW 18.6(H) 11.0 - 15.0 % LAB HEMETOLOGY METHOD 07/28/2024 9:07 AM EDT [facility] Platelets 368 130 - 400 K/mcL LAB HEMETOLOGY METHOD 07/28/2024 9:07 AM EDT [facility] MPV 9.5 7.0 - 11.0 FL LAB HEMETOLOGY METHOD 07/28/2024 9:07 AM EDT [facility] NRBC 0.0 <1.0 % LAB HEMETOLOGY METHOD 07/28/2024 9:07 AM EDT [facility] NRBC Absolute 0.00 <0.10 K/mcL LAB HEMETOLOGY METHOD 07/28/2024 9:07 AM EDT [facility] Blood Venous blood specimen / Unknown Venipuncture / Unknown 07/28/2024 5:12 AM EDT 07/28/2024 8:54 AM EDT us Salty Barber MD LAB BLOOD ORDERABLES Final Resu lt [facility] [address] [place] [address], * (ABNORMAL) Basic metabolic panel (07/28/2024 5:10 AM EDT) Sodium 137 133 - 145 mmol/L LAB CHEMISTRY METHOD 07/28/2024 10:00 AM EDT [facility] Potassium 4.6 3.5 - 5.5 mmol/L LAB CHEMISTRY METHOD 07/28/2024 10:00 AM EDT [facility] Chloride 105 96 - 110 mmol/L LAB CHEMISTRY METHOD 07/28/2024 10:00 AM [facility] CO2 28 21 - 32 mmol/L LAB CHEMISTRY METHOD 07/28/2024 10:00 AM [facility] Anion Gap 4 3 - 11 LAB CHEMISTRY METHOD 07/28/2024 10:00 AM [facility] Glucose 86 70 - 100 mg/dL LAB CHEMISTRY METHOD 07/28/2024 10:00 AM [facility] BUN 20 5 - 25 mg/dL LAB CHEMISTRY METHOD 07/28/2024 10:00 AM [facility] Creatinine 0.85 0.70 - 1.30 mg/dL LAB CHEMISTRY METHOD 07/28/2024 10:00 AM [facility] eGFR 86 >=60 mL/min/1. 73m2 LAB CHEMISTRY METHOD 07/28/2024 10:00 AM [facility] Comment:Calculation based on the Chronic Kidney Disease Epidemiology Collaboration (CKD-EPI) equation refit without adjustment for race. BUN/Creatinine Ratio 23.5 LAB CHEMISTRY METHOD 07/28/2024 10:00 AM [facility] Calcium 8.3(L) 8.5 - 10.5 mg/dL LAB CHEMISTRY METHOD 07/28/2024 10:00 AM [facility] Blood Venous blood specimen / Unknown Venipuncture / Unknown 07/28/2024 5:10 AM EDT 07/28/2024 8:45 AM EDT us Salty Barber MD LAB BLOOD ORDERABLES Final Resu lt [facility] [address] [place] [address], documented in this encounter Visit Diagnoses Diagnosis Essential (primary) hypertension Unspecified essential hypertension Atherosclerotic heart disease of [place] coronary artery without angina pectoris Chronic diastolic (congestive) heart failure (CMS/HCC V24, CMS/HCC V28) Displaced intertrochanteric fracture of right femur, subsequent encounter for closed fracture with routine healing documented in this encounter Care Teams Automobile Service Station Manager Relationship Specialty Start Date End Date Leslie Gamble MD [address] PCP - General 09/11/10 documented as of this encounter
--- OUTSIDE RECORDS SUMMARY | 2024-08-02 11:25 | XMS_ITS | Encounter Summary ---
Author Organization [facility] Address [address] [place] [address] Care Team Providers Care Supervisor Meter Shop Name Role Phone Leslie Gamble MD Primary Care Provider [phone] Encounter Details Date Type Department Care Team (Late Contact Info) Description 07/25/2024 Lab Requisition [facility] - Main Lab 299 [facility] [place] [phone] Salty Barber MD [address] [place] [address] Other fatigue; Other specified abnormal [...] Description 02/02/2025 2:30 PM EST Office Visit [facility] - [facility] [address] [facility] [address] [place] [phone] Bri Jackson MD 300 [facility] [address] [place] [address] documented as of this encounter Procedures Procedure Name Priority Date/Time Associated Diagnosis Comments OCCULT BLOOD STOOL, GUAIAC Routine 07/24/2024 5:15 PM EDT Other fatigue Other specified abnormal findings of blood chemistry Malignant neoplasm of prostate ([facility] V24, [facility] V28) documented in this encounter Results * Occult blood stool, guaiac (07/24/2024 5:15 PM EDT) Occult Blood, Stool #1 Negative Negative 07/25/2024 1:39 PM EDT [facility] Stool Rectum structure / Unknown Non-blood Collection / Unknown 07/24/2024 5:15 PM EDT 07/25/2024 12:50 PM EDT Salty Barber MD LAB BODY FLUIDS AND STOOLS MARY CARRENO Final Result [facility] [address] [place] [address], documented in this encounter Visit Diagnoses Diagnosis Other fatigue Other specified abnormal findings of blood chemistry Malignant neoplasm of prostate ([facility] V24, [facility] V28) Malignant neoplasm of prostate documented in this encounter Care Teams Supervisor Meter Shop Relationship Specialty Start Date End Date Leslie Gamble MD [address] [place] [address] PCP - General 09/11/10 documented as of this encounter
--- OUTSIDE RECORDS SUMMARY | 2024-08-02 11:25 | XMS_ITS | Encounter Summary ---
Author Organization [employer] Address [address] [place] [address] Care Team Providers Care Narcotics And/Or Vice Detective Name Role Phone Leslie Gamble MD Primary Care Provider [phone] Encounter Details Date Type Department Care Team (Latest Contact Info) Description 07/20/2024 Lab Requisition [facility] - Main Lab 299 [facility] [place] [address] Salty Barber MD [address] [place] [address] [phone] Essential (primary) hypertension; Atherosclerotic heart disease of [place] coronary artery without angina pectoris; Chronic diastolic [...] Description 02/02/2025 2:30 PM EST Office Visit [facility] - [facility] [address] [facility] [address] [place] [address] Bri Jackson MD [address] [place] [address] documented as of this encounter Procedures Procedure Name Priority Date/Time Associated Diagnosis Comments COMPLETE BLOOD COUNT Routine 07/21/2024 6:32 AM EDT Essential (primary) hypertension Atherosclerotic heart disease of [place] coronary artery without angina pectoris Chronic diastolic (congestive) heart failure (CMS/HCC V24, CMS/HCC V28) Displaced intertrochanteric fracture of right femur, subsequent encounter for closed fracture with routine healing BASIC METABOLIC PANEL Routine 07/21/2024 6:32 AM EDT Essential (primary) hypertension Atherosclerotic heart disease of [place] coronary artery without angina pectoris Chronic diastolic (congestive) heart failure (CMS/HCC V24, CMS/HCC V28) Displaced intertrochanteric fracture of right femur, subsequent encounter for closed fracture with routine healing documented in this encounter Results * (ABNORMAL) Basic metabolic panel (07/21/2024 6:32 AM EDT) Sodium 141 133 - 145 mmol/L LAB CHEMISTRY METHOD 07/21/2024 10:23 AM [facility] Potassium 4.9 3.5 - 5.5 mmol/L LAB CHEMISTRY METHOD 07/21/2024 10:23 AM [facility] Chloride 108 96 - 110 mmol/L LAB CHEMISTRY METHOD 07/21/2024 10:23 AM [facility] CO2 29 21 - 32 mmol/L LAB CHEMISTRY METHOD 07/21/2024 10:23 AM [facility] Anion Gap 4 3 - 11 LAB CHEMISTRY METHOD 07/21/2024 10:23 AM [facility] Glucose 95 70 - 100 mg/dL LAB CHEMISTRY METHOD 07/21/2024 10:23 AM [facility] BUN 14 5 - 25 mg/dL LAB CHEMISTRY METHOD 07/21/2024 10:23 AM [facility] Creatinine 0.78 0.70 - 1.30 mg/dL LAB CHEMISTRY METHOD 07/21/2024 10:23 AM EDT [facility] eGFR 88 >=60 mL/min/1. 73m2 LAB CHEMISTRY METHOD 07/21/2024 10:23 AM EDT [facility] Comment:Calculation based on the??Chronic Kidney Disease Epidemiology Collaboration (CKD-EPI) equation refit??without adjustment for race. BUN/Creatinine Ratio 17.9 LAB CHEMISTRY METHOD 07/21/2024 10:23 AM EDT [facility] Calcium 8.1(L) 8.5 - 10.5 mg/dL LAB CHEMISTRY METHOD 07/21/2024 10:23 AM [facility] Blood Venous blood specimen / Unknown Venipuncture / Unknown 07/21/2024 6:32 AM EDT 07/21/2024 9:27 AM EDT us Salty Barber MD LAB BLOOD ORDERABLES Final Resu lt [facility] [address] [place] [address], [place] [phone] * (ABNORMAL) Complete blood count (07/21/2024 6:32 AM EDT) WBC 5.5 4.8 - 10.8 K/mcL LAB HEMETOLOGY METHOD 07/21/2024 9:55 AM EDT [facility] RBC 2.70(L) 4.50 - 5.50 M/mcL LAB HEMETOLOGY METHOD 07/21/2024 9:55 AM EDT [facility] Hemoglobin 8.0(L) 13.5 - 17.5 g/dL LAB HEMETOLOGY METHOD 07/21/2024 9:55 AM T [facility] Hematocrit 26.3(L) 42.0 - 54.0 % LAB HEMETOLOGY METHOD 07/21/2024 9:55 AM EDT [facility] MCV 96.7 79.0 - 98.0 FL LAB HEMETOLOGY METHOD 07/21/2024 9:55 AM EDT [facility] MCH 29.4 27.0 - 32.0 pcg LAB HEMETOLOGY METHOD 07/21/2024 9:55 AM EDT [facility] MCHC 30.4(L) 32.0 - 37.0 g/dL LAB HEMETOLOGY METHOD 07/21/2024 9:55 AM EDT [facility] RDW 17.1(H) 11.0 - 15.0 % LAB HEMETOLOGY METHOD 07/21/2024 9:55 AM EDT [facility] Platelets 356 130 - 400 K/mcL LAB HEMETOLOGY METHOD 07/21/2024 9:55 AM EDT [facility] MPV 9.6 7.0 - 11.0 FL LAB HEMETOLOGY METHOD 07/21/2024 9:55 AM EDT [facility] NRBC 0.0 <1.0 % LAB HEMETOLOGY METHOD 07/21/2024 9:55 AM EDT [facility] NRBC Absolute 0.00 <0.10 K/mcL LAB HEMETOLOGY METHOD 07/21/2024 9:55 AM T [facility] Blood Venous blood specimen / Unknown Venipuncture / Unknown 07/21/2024 6:32 AM EDT 07/21/2024 9:27 AM EDT us Salty Barber MD LAB BLOOD ORDERABLES Final Resu lt [facility] [address] [place] [address], documented in this encounter Visit Diagnoses Diagnosis Essential (primary) hypertension Unspecified essential hypertension Atherosclerotic heart disease of [place] coronary artery without angina pectoris Chronic diastolic (congestive) heart failure (CMS/HCC V24, CMS/HCC V28) Displaced intertrochanteric fracture of right femur, subsequent encounter for closed fracture with routine healing documented in this encounter Care Teams Narcotics And/Or Vice Detective Relationship Specialty Start Date End Date Leslie Gamble MD [address] PCP - General 09/11/10 documented as of this encounter
== END 2024-07-29 10:18 | disposition home or self-care (01) ==
LOC: HO.HOSX 10:17
PROVIDERS: Visit Provider Physician Assistant
DX: S72.001A Fracture of unspecified part of neck of right femur, initial encounter for closed fracture (principal)
CPT/HCPCS: 73552; 99212

== ENCOUNTER → 2024-07-29 11:33 | Outpatient (BNV) | payer MEDICARE, OTHER, SELFPAY | PROVIDERS: Visit Provider Radiology Diagnostic Radiology | DX: S72.91XA Unspecified fracture of right femur, initial encounter for closed fracture (principal) | CPT/HCPCS: 73552 ==

== ENCOUNTER 2024-07-29 11:34 | Outpatient (AMB) | payer MEDICARE, OTHER, SELFPAY ==
[2024-07-29 11:45] VITALS: BMI 21.5
--- NOTE | 2024-07-29 11:45 | MHC.OFFVIS ---
Vital Signs 07/29/24 11:45 Height 5 ft 10 in Weight 150 lb BMI 21.5 Intake Visit Reasons: PO-Right hip IM Nail 07/11 with Intake Note: Tr is an 84 year old male presents today with his son post-operatively after undergoing a right hip IM nail, DOS: 07/11/[address] Peace. Patient currently resides at [facility]. Patient complains of back pain, which is part of his injury. He continues taking pain medication as prescribed. Accompanied by: Son Allergies No Known Allergies [No Known Allergies*] Allergy (Verified 07/29/24 11:45) Medication List - Last Reconciled 07/29/24 by Terrence Barriga PA-C aspirin 81 mg PO DAILY aspirin 325 mg PO BID bisacodyl 10 mg OR DAILY PRN carvedilol phosphate ER 20 mg PO DAILY docusate sodium 100 mg PO BID ferrous sulfate 325 mg PO DAILY ketorolac 0.5% 1 drp ophthalmic (eye) BID oxycodone 5 mg PO Q6H PRN pantoprazole (Protonix) 40 mg PO DAILY secukinumab (Cosentyx Pen) 150 mg subcut QMONTH tramadol 50 mg PO BID@0800,1600 PRN HPI HPI PO-Right hip IM Nail 07/[address]: Details: 84-year-old gentleman returns to the office today status post right hip IM nail on 07/11/[address] Peace. He states he is doing quite well from his hip however the back region is bothering him from a prior injury. He is at a rehab facility working with physical therapy ambulating with a walker. REPLACED BY [facility] Medical History Hypertension Coronary artery disease Psoriatic arthritis Afib Diastolic heart failure Social History Household Members: None Housing: Other Housing Other:: independant living facility Do you presently have visiting nurse or other home services: No Unable to assess alcohol history related to: Unable to respond Patient Tobacco Use Status: Former Tobacco user Tobacco use type: Cigarette Years Smoked: 20 e-Cigarette/Vaping Use: Former Use Second Hand Smoke Exposure: No service: No Review of Systems Const All systems reviewed & are unremarkable except as noted in HPI and below Physical Exam Vital Signs: BMI result Body Mass Index 21.5 Extrem Other: Right hip incision clean dry and intact. No erythema. No swelling. He has full range of motion of the hip without pain. Calf supple nontender neurovascularly intact. Results Reviewed Results Reviewed: X-rays of the right hip obtained in the office today and reviewed by me show intact IM nail with stable reduction of fracture. Assessment & Plan Assessment & Plan (1) Closed fracture of right hip: Code(s): S72.001A - Fracture of unspecified part of neck of right femur, initial encounter for closed fracture Category: Medical Plan: Praveen removed today Steri-Strips applied. He will continue to work with physical therapy for gait training and strengthening exercises. He will continue DVT prophylaxis for another 4 weeks and see us back in 4 weeks with x-rays sooner if needed. Orders: Orders XR femur RT 2V Today S72.90XA - Unspecified fracture of unspecified femur, initial encounter for closed fracture Coding Level of Care Code Global (28155) Diagnoses Closed fracture of right hip S72.001A
--- OUTSIDE RECORDS SUMMARY | 2024-07-29 12:01 | XMS_ITS | Patient Health Record ---
Author Organization [facility] Address [address] [facility] [place] [address] Care Team Providers Care Supervisor Beehive Kiln Name Role Phone Leslie Gamble MD Primary Care Provider UnavailTalon Mcgovern Unavailable [phone] Luis Giraldo Unavailable [phone] Flor Chavez Unavailable [phone] Allergies No Known Allergies Reason For Referral [...] Ordered Date Performed Result Body Sit e [id number]-[id number] NAIL, 6 OR MORE 02/10/2024 N/A Encounters Encounter Location Date Provider Diagnosis [place] [address] [address] 08/04/2023 Luis Giraldo Tinea unguium B35.1 ; Tinea pedis B35.3 ; Xerosis cutis L85.3 ; Pain in left toe(s) M79.675 ; Pain in right toe(s) M79.674 ; Skin disease L98.9 ; Hallux valgus (acquired), 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 and [place] (actinic keratosis) L57.[address] [address] 11/03/2023 Luis Giraldo Tinea unguium B35.1 ; Tinea pedis B35.3 ; Xerosis cutis L85.3 ; Pain in left toe(s) M79.675 ; Pain in right toe(s) M79.674 ; Skin disease L98.9 ; Hallux valgus (acquired), 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 and [place] (actinic keratosis) L57.[address] [address] 02/10/2024 Flor Scott Onychomycosis B35.1 ; Pain in right toe(s) M79.674 and Pain in left toe(s) M79.[address] [address] 07/25/2024 Talon Ceron Assessments Encounter Date Diagnosis (ICD Code) Assessment [...] X ray : Foot, left 3V 10/03/2022 [id number] NAIL, 6 OR MORE 02/10/2024 Insurance Providers Payer Name Payer Address Payer Phone Subscriber Number Group Number Insured Name Patient Relationship to Insured Coverage Start Date Coverage End Date Medicare National [employer]t [employer] [address] [place] [address] [id number] Tr Lamb Self - patient is the insured [employer] ([employer]) [address] [place] [address] [phone] [id number] Tr Lamb Self - patient is the insured Medical (General) History Medical History History ICD Code Arthritis Back,Hip,and Knee pain Cancer Heart disease High blood pressure Lung disease Osteoporosis Psoriasis/eczema Measles Psoriatic arthritis Surgical History Surgery Date(Month/Year) prostatectomy 06/2004 Bronchogenic Cyst -Afib Post Op Retina Detachment 1994,2000 stent 02/2023
--- OUTSIDE RECORDS SUMMARY | 2024-07-29 12:01 | XMS_ITS | Encounter Summary ---
Author Organization [email or web address] Address [address] [place] [address] Care Team Providers Care [place] Worker Name Role Phone Leslie Gamble MD Primary Care Provider [phone] Encounter Details Date Type Department Care Team (Latest Contact Info) Description 07/15/2024 Lab Requisition [facility] Lab [address] [facility] [place] [address] Salty Barber MD [address] [place] [phone] Essential (primary) hypertension; Atherosclerotic heart disease of [place] coronary artery without angina pectoris; Chronic diastolic (congestive) heart failure (CMS/HCC V24, CMS/HCC V28); Displaced intertrochanteric fracture of right femur, subsequent encounter for closed fracture with routine healing Social History Tobacco Use Types Packs/Day Years Used Date Smoking Tobacco: Former Smokeless Tobacco: Never Alcohol Use Standard Drinks/Week Comments Never 0 (1 standard drink = 0.6 oz pur e alcohol) Sex and Gender Information Value Date Recorded Sex Assigned at Not on file Legal Sex Male 6:33 PM EST Gender Identity Not on file Sexual Orientation Not on file documented as of this encounter Plan of Treatment Upcoming Encounters Date Type Department Care Team (Late st Contact Info) Description 02/02/2025 2:30 PM EST Office Visit [facility] [address] [facility] [address] [place] [address] Bri Jackson MD [address] [place] [address] documented as of this encounter Procedures Procedure Name Priority Date/Time Associated Diagnosis Comments COMPLETE BLOOD COUNT Routine 07/18/2024 5:30 AM EDT Essential (primary) hypertension Atherosclerotic heart disease of [place] coronary artery without angina pectoris Chronic diastolic (congestive) heart failure (CMS/HCC V24, CMS/HCC V28) Displaced intertrochanteric fracture of right femur, subsequent encounter for closed fracture with routine healing COMPREHENSIVE METABOLIC PANEL Routine 07/18/2024 5:30 AM EDT Essential (primary) hypertension Atherosclerotic heart disease of [place] coronary artery without angina pectoris Chronic diastolic (congestive) heart failure (CMS/HCC V24, CMS/HCC V28) Displaced intertrochanteric fracture of right femur, subsequent encounter for closed fracture with routine healing documented in this encounter Results * (ABNORMAL) Comprehensive metabolic panel (07/18/2024 5:30 AM EDT) Sodium 140 133 - 145 mmol/L LAB CHEMISTRY METHOD 07/18/2024 12:54 PM [facility] Potassium 4.7 3.5 - 5.5 mmol/L LAB CHEMISTRY METHOD 07/18/2024 12:54 PM [facility] Chloride 107 96 - 110 mmol/L LAB CHEMISTRY METHOD 07/18/2024 12:54 PM [facility] CO2 29 21 - 32 mmol/L LAB CHEMISTRY METHOD 07/18/2024 12:54 PM [facility] Anion Gap 4 3 - 11 LAB CHEMISTRY METHOD 07/18/2024 12:54 PM [facility] Glucose 89 70 - 100 mg/dL LAB CHEMISTRY METHOD 07/18/2024 12:54 PM [facility] BUN 22 5 - 25 mg/dL LAB CHEMISTRY METHOD 07/18/2024 12:54 PM [facility] Creatinine 0.88 0.70 - 1.30 mg/dL LAB CHEMISTRY METHOD 07/18/2024 12:[address] [facility] eGFR 85 >=60 mL/min/1. 73m2 LAB CHEMISTRY METHOD 07/18/2024 12:54 PM [facility] Comment:Calculation based on the??Chronic Kidney Disease Epidemiology Collaboration (CKD-EPI) equation refit??without adjustment for race. BUN/Creatinine Ratio 25.0 LAB CHEMISTRY METHOD 07/18/2024 12:[address] [facility] Calcium 8.1(L) 8.5 - 10.5 mg/dL LAB CHEMISTRY METHOD 07/18/2024 12:54 PM [facility] AST (SGOT) 21 10 - 42 unit/L LAB CHEMISTRY METHOD 07/18/2024 12:54 PM [facility] ALT (SGPT) 21 10 - 60 unit/L LAB CHEMISTRY METHOD 07/18/2024 12:54 PM [facility] Alkaline Phosphatase 63 42 - 121 unit/L LAB CHEMISTRY METHOD 07/18/2024 12:54 PM [facility] Total Protein 5.5(L) 6.0 - 8.0 g/dL LAB CHEMISTRY METHOD 07/18/2024 12:54 PM [facility] Albumin 2.7(L) 3.2 - 5.0 g/dL LAB CHEMISTRY METHOD 07/18/2024 12:54 PM [facility] Total Bilirubin 0.8 0.0 - 1.4 mg/dL LAB CHEMISTRY METHOD 07/18/2024 12:54 PM [facility] Blood Venous blood specimen / Unknown Venipuncture / Unknown 07/18/2024 5:30 AM EDT 07/18/2024 10:14 AM EDT us Salty Barber MD LAB BLOOD ORDERABLES Final Resu lt [facility] [address] [place] [address], * (ABNORMAL) Complete blood count (07/18/2024 5:30 AM EDT) [facility] WBC 5.8 4.8 - 10.8 K/mcL LAB HEMETOLOGY METHOD 07/18/2024 11:[address] [facility] RBC 2.70(L) 4.50 - 5.50 M/mcL LAB HEMETOLOGY METHOD 07/18[facility]2024 [facility] Hemoglobin 7.6(L) 13.5 - 17.5 g/dL LAB HEMETOLOGY METHOD 07/18/2024 11:20 AM [facility] Hematocrit 25.9(L) 42.0 - 54.0 % LAB HEMETOLOGY METHOD 07/18/2024 11:20 AM [facility] MCV 97.7 79.0 - 98.0 FL LAB HEMETOLOGY METHOD 07/18/2024 11:20 AM [facility] MCH 28.7 27.0 - 32.0 pcg LAB HEMETOLOGY METHOD 07/18/2024 11:20 AM [facility] MCHC 29.3(L) 32.0 - 37.0 g/dL LAB HEMETOLOGY METHOD 07/18/2024 11:20 AM [facility] RDW 15.6(H) 11.0 - 15.0 % LAB HEMETOLOGY METHOD 07/18/2024 11:20 AM [facility] Platelets 286 130 - 400 K/mcL LAB HEMETOLOGY METHOD 07/18/2024 11:20 AM [facility] MPV 9.9 7.0 - 11.0 FL LAB HEMETOLOGY METHOD 07/18/2024 11:20 AM [facility] NRBC 0.0 <1.0 % LAB HEMETOLOGY METHOD 07/18/2024 11:[address] [facility] NRBC Absolute 0.00 <0.10 K/mcL LAB HEMETOLOGY METHOD 07/18/2024 11:[address] [facility] Blood Venous blood specimen / Unknown Venipuncture / Unknown 07/18/2024 5:30 AM EDT 07/18/2024 10:14 AM EDT us Salty Barber MD LAB BLOOD ORDERABLES Final Resu lt [facility] [address] [place] [address], documented in this encounter Visit Diagnoses Diagnosis Essential (primary) hypertension Unspecified essential hypertension Atherosclerotic heart disease of [place] coronary artery without angina pectoris Chronic diastolic (congestive) heart failure (CMS/HCC V24, CMS/HCC V28) Displaced intertrochanteric fracture of right femur, subsequent encounter for closed fracture with routine healing documented in this encounter Care Teams [place] Worker Relationship Specialty Start Date End Date Leslie Gamble MD [address] [place] [address] PCP - General 09/11/10 documented as of this encounter
--- OUTSIDE RECORDS SUMMARY | 2024-07-29 12:01 | XMS_ITS | Encounter Summary ---
Author Organization [facility] Address [address] [place] [address] Care Team Providers Care Shift Supervisor Rn Name Role Phone Leslie Gamble MD Primary Care Provider [phone] Encounter Details Date Type Department Care Team (Latest Contact Info) Description 07/23/[address] [facility] - Main Lab [address] [facility] [address] Salty Barber MD [address] [place] [phone] Essential (primary) hypertension; Atherosclerotic heart disease of [place] coronary artery without angina pectoris; Chronic diastolic [...] Description 02/02/2025 2:30 PM EST Office Visit [facility] [address] [facility] [address] [place] [address] Bri Jackson MD [address] [place] [address] documented as of this encounter Procedures Procedure Name Priority Date/Time Associated Diagnosis Comments COMPLETE BLOOD COUNT Routine 07/25/2024 5:25 AM EDT Essential (primary) hypertension Atherosclerotic heart disease of [place] coronary artery without angina pectoris Chronic diastolic (congestive) heart failure (CMS/HCC V24, CMS/HCC V28) Displaced intertrochanteric fracture of right femur, subsequent encounter for closed fracture with routine healing COMPREHENSIVE METABOLIC PANEL Routine 07/25/2024 5:25 AM EDT Essential (primary) hypertension Atherosclerotic heart disease of [place] coronary artery without angina pectoris Chronic diastolic (congestive) heart failure (CMS/HCC V24, CMS/HCC V28) Displaced intertrochanteric fracture of right femur, subsequent encounter for closed fracture with routine healing documented in this encounter Results * (ABNORMAL) Comprehensive metabolic panel (07/25/2024 5:25 AM EDT) Sodium 142 133 - 145 mmol/L LAB CHEMISTRY METHOD 07/25/2024 9:45 AM [facility] Potassium 5.0 3.5 - 5.5 mmol/L LAB CHEMISTRY METHOD 07/25/2024 9:45 AM [facility] Chloride 109 96 - 110 mmol/L LAB CHEMISTRY METHOD 07/25/2024 9:45 AM [facility] CO2 27 21 - 32 mmol/L LAB CHEMISTRY METHOD 07/25/2024 9:45 AM [facility] Anion Gap 6 3 - 11 LAB CHEMISTRY METHOD 07/25/2024 9:45 AM [facility] Glucose 85 70 - 100 mg/dL LAB CHEMISTRY METHOD 07/25/2024 9:45 AM [facility] BUN 18 5 - 25 mg/dL LAB CHEMISTRY METHOD 07/25/2024 9:45 AM [facility] Creatinine 0.84 0.70 - 1.30 mg/dL LAB CHEMISTRY METHOD 07/25/2024 9:45 AM [facility] eGFR 87 >=60 mL/min/1. 73m2 LAB CHEMISTRY METHOD 07/25/2024 9:45 AM [facility] Comment:Calculation based on the??Chronic Kidney Disease Epidemiology Collaboration (CKD-EPI) equation refit??without adjustment for race. BUN/Creatinine Ratio 21.4 LAB CHEMISTRY METHOD 07/25/2024 9:45 AM [facility] Calcium 8.1(L) 8.5 - 10.5 mg/dL LAB CHEMISTRY METHOD 07/25/2024 9:45 AM [facility] AST (SGOT) 22 10 - 42 unit/L LAB CHEMISTRY METHOD 07/25/2024 9:45 AM [facility] ALT (SGPT) 20 10 - 60 unit/L LAB CHEMISTRY METHOD 07/25/2024 9:45 AM [facility] Alkaline Phosphatase 138(H) 42 - 121 unit/L LAB CHEMISTRY METHOD 07/25/2024 9:45 AM [facility] Comment:Results verified by repeat testing Total Protein 5.8(L) 6.0 - 8.0 g/dL LAB CHEMISTRY METHOD 07/25/2024 9:45 AM [facility] Albumin 3.0(L) 3.2 - 5.0 g/dL LAB CHEMISTRY METHOD 07/25/2024 9:45 AM [facility] Total Bilirubin 0.5 0.0 - 1.4 mg/dL LAB CHEMISTRY METHOD 07/25/2024 9:45 AM [facility] Blood Venous blood specimen / Unknown Venipuncture / Unknown 07/25/2024 5:25 AM EDT 07/25/2024 8:25 AM EDT us Salty Barber MD LAB BLOOD ORDERABLES Final Resu lt [facility] [address] [place] [address], * (ABNORMAL) Complete blood count (07/25/2024 5:25 AM EDT) WBC 5.9 4.8 - 10.8 K/mcL LAB HEMETOLOGY METHOD 07/25/2024 8:46 AM EDT [facility] RBC 2.80(L) 4.50 - 5.50 M/mcL LAB HEMETOLOGY METHOD 07/25/2024 8:46 AM EDT [facility] Hemoglobin 8.4(L) 13.5 - 17.5 g/dL LAB HEMETOLOGY METHOD 07/25/2024 8:46 AM EDT [facility] Hematocrit 27.9(L) 42.0 - 54.0 % LAB HEMETOLOGY METHOD 07/25/2024 8:46 AM EDT [facility] MCV 98.6(H) 79.0 - 98.0 FL LAB HEMETOLOGY METHOD 07/25/2024 8:46 AM EDT [facility] MCH 29.7 27.0 - 32.0 pcg LAB HEM[facility]OLOGY [facility] MCHC 30.1(L) 32.0 - 37.0 g/dL LAB HEMETOLOGY METHOD 07/25/2024 8:46 AM EDT [facility] RDW 18.0(H) 11.0 - 15.0 % LAB HEMETOLOGY METHOD 07/25/2024 8:46 AM EDT [facility] Platelets 386 130 - 400 K/mcL LAB HEMETOLOGY METHOD 07/25/2024 8:46 AM EDT [facility] MPV 9.5 7.0 - 11.0 FL LAB HEMETOLOGY METHOD 07/25/2024 8:46 AM EDT [facility] NRBC 0.0 <1.0 % LAB HEMETOLOGY METHOD 07/25/2024 8:46 AM EDT [facility] NRBC Absolute 0.00 <0.10 K/mcL LAB HEMETOLOGY METHOD 07/25/2024 8:46 AM EDT [facility] Blood Venous blood specimen / Unknown Venipuncture / Unknown 07/25/2024 5:25 AM EDT 07/25/2024 8:32 AM EDT us Salty Barber MD LAB BLOOD ORDERABLES Final Resu lt [facility] [address] [place] [address], documented in this encounter Visit Diagnoses Diagnosis Essential (primary) hypertension Unspecified essential hypertension Atherosclerotic heart disease of [place] coronary artery without angina pectoris Chronic diastolic (congestive) heart failure (CMS/HCC V24, CMS/HCC V28) Displaced intertrochanteric fracture of right femur, subsequent encounter for closed fracture with routine healing documented in this encounter Care Teams Shift Supervisor Rn Relationship Specialty Start Date End Date Leslie Gamble MD [address] [place] [address] PCP - General 09/11/10 documented as of this encounter
--- OUTSIDE RECORDS SUMMARY | 2024-07-29 12:01 | XMS_ITS | Encounter Summary ---
Author Organization [facility] Address [address] [place] [address] Care Team Providers Care Account Development Executive Name Role Phone Leslie Gamble MD Primary Care Provider [phone] Encounter Details Date Type Department Care Team (Latest Contact Info) Description 07/14/2024 Lab Requisition [facility] - Main Lab 299 [facility] [place] [address] Salty Barber MD [address] [place] [phone] Essential (primary) hypertension; Displaced intertrochanteric fracture of right femur, subsequent [...] Description 02/02/2025 2:30 PM EST Office Visit [facility] [address] [facility] [address] [place] [address] Bri Jackson MD [address] [facility] [address] [place] [address] documented as of this encounter Procedures Procedure Name Priority Date/Time Associated Diagnosis Comments COMPLETE BLOOD COUNT Routine 07/14/2024 4:51 AM EDT Essential (primary) hypertension Displaced intertrochanteric fracture of right femur, subsequent encounter for closed fracture with routine healing COMPREHENSIVE METABOLIC PANEL Routine 07/14/2024 4:51 AM EDT Essential (primary) hypertension Displaced intertrochanteric fracture of right femur, subsequent encounter for closed fracture with routine healing documented in this encounter Results * (ABNORMAL) Comprehensive metabolic panel (07/14/2024 4:51 AM EDT) Sodium 138 133 - 145 mmol/L LAB CHEMISTRY METHOD 07/14/2024 10:45 AM [facility] Potassium 3.9 3.5 - 5.5 mmol/L LAB CHEMISTRY METHOD 07/14/2024 10:45 AM [facility] Chloride 102 96 - 110 mmol/L LAB CHEMISTRY METHOD 07/14/2024 10:45 AM [facility] CO2 30 21 - 32 mmol/L LAB CHEMISTRY METHOD 07/14/2024 10:45 AM [facility] Anion Gap 6 3 - 11 LAB CHEMISTRY METHOD 07/14/2024 10:45 AM [facility] Glucose 97 70 - 100 mg/dL LAB CHEMISTRY METHOD 07/14/2024 10:45 AM [facility] BUN 42(H) 5 - 25 mg/dL LAB CHEMISTRY METHOD 07/14/2024 10:45 AM [facility] Creatinine 1.24 0.70 - 1.30 mg/dL LAB CHEMISTRY METHOD 07/14/2024 10:45 AM [facility] eGFR 58(L) >=60 mL/min/1. 73m2 LAB CHEMISTRY METHOD 07/14/2024 10:45 AM [facility] Comment:Calculation based on the??Chronic Kidney Disease Epidemiology Collaboration (CKD-EPI) equation refit??without adjustment for race. BUN/Creatinine Ratio 33.9 LAB CHEMISTRY METHOD 07/14/2024 10:45 AM [facility] Calcium 7.6(L) 8.5 - 10.5 mg/dL LAB CHEMISTRY METHOD 07/14/2024 10:45 AM [facility] AST (SGOT) 26 10 - 42 unit/L LAB CHEMISTRY METHOD 07/14/2024 10:45 AM [facility] ALT (SGPT) 20 10 - 60 unit/L LAB CHEMISTRY METHOD 07/14/2024 10:45 AM [facility] Alkaline Phosphatase 54 42 - 121 unit/L LAB CHEMISTRY METHOD 07/14/2024 10:45 AM [facility] Total Protein 5.2(L) 6.0 - 8.0 g/dL LAB CHEMISTRY METHOD 07/14/2024 10:45 AM [facility] Albumin 2.5(L) 3.2 - 5.0 g/dL LAB CHEMISTRY METHOD 07/14/2024 10:45 AM [facility] Total Bilirubin 0.6 0.0 - 1.4 mg/dL LAB CHEMISTRY METHOD 07/14/2024 10:45 AM [facility] Blood Venous blood specimen / Unknown Venipuncture / Unknown 07/14/2024 4:51 AM EDT 07/14/2024 10:12 AM EDT us Salty Barber MD LAB BLOOD ORDERABLES Final Resu lt [facility] [address] [place] [address], * (ABNORMAL) Complete blood count (07/14/2024 4:51 AM EDT) WBC 5.8 4.8 - 10.8 K/mcL LAB HEMETOLOGY METHOD 07/14/2024 10:21 AM [facility] RBC 2.50(L) 4.50 - 5.50 M/mcL LAB HEMETOLOGY METHOD 07/14/2024 10:21 AM [facility] Hemoglobin 7.4(L) 13.5 - 17.5 g/dL LAB HEMETOLOGY METHOD 07/14/2024 10:21 AM [facility] Hematocrit 23.3(L) 42.0 - 54.0 % LAB HEMETOLOGY METHOD 07/14/2024 10:21 AM [facility] MCV 92.1 79.0 - 98.0 FL LAB HEMETOLOGY METHOD 07/14/2024 10:21 AM [facility] MCH 29.2 27.0 - 32.0 pcg LAB HEMETOLOGY METHOD 07/14/2024 10:21 AM [facility] MCHC 31.8(L) 32.0 - 37.0 g/dL LAB HEMETOLOGY METHOD 07/14/2024 10:21 AM [facility] RDW 15.4(H) 11.0 - 15.0 % LAB HEMETOLOGY METHOD 07/14/2024 10:21 AM [facility] Platelets 168 130 - 400 K/mcL LAB HEMETOLOGY METHOD 07/14/2024 10:21 AM [facility] MPV 10.7 7.0 - 11.0 FL LAB HEMETOLOGY METHOD 07/14/2024 10:21 AM [facility] NRBC 0.0 <1.0 % LAB HEMETOLOGY METHOD 07/14/2024 10:21 AM [facility] NRBC Absolute 0.00 <0.10 K/mcL LAB HEMETOLOGY METHOD 07/14/2024 10:21 AM [facility] Blood Venous blood specimen / Unknown Venipuncture / Unknown 07/14/2024 4:51 AM EDT 07/14/2024 10:12 AM EDT Salty Barber MD LAB BLOOD ORDERABLES Final Resu lt [facility] [address] [place] [address], documented in this encounter Visit Diagnoses Diagnosis Essential (primary) hypertension Unspecified essential hypertension Displaced intertrochanteric fracture of right femur, subsequent encounter for closed fracture with routine healing documented in this encounter Care Teams Account Development Executive Relationship Specialty Start Date End Date Leslie Gamble MD [address] [place] [address] PCP - General 09/11/10 documented as of this encounter
--- OUTSIDE RECORDS SUMMARY | 2024-07-29 12:01 | XMS_ITS ---
Author Organization [facility] Address [address] [place] [address] Care Team Providers Care Mainspring Reverse Winder Name Role Phone Leslie Gamble MD Primary Care Provider Talon Srivastava [phone] REASON FOR VISIT Cx 07/27/24 appt Encounters Encounter [facility] Date [facility] [address] 07/25/2024 Talon Ceron Plan Of Treatment No Information Progress Notes * PANDATr Ruiz TDOB: [birth year] (84 yo M)Acc No.[id number]:07/25/2024 Patient:?Tr KENNY :1940???Age:84 Y???Sex:Male Address:[address] [place] [address], [phone] * true * Date:? Generated for Michi pamela/Lori/eTransmitting on:?07/29/2024 12:01 PM EDT
--- OUTSIDE RECORDS SUMMARY | 2024-07-29 12:01 | XMS_ITS | Encounter Summary ---
Author Organization [facility] Address [address] [place] [address] Care Team Providers Care Neurologist Name Role Phone Leslie Gamble MD Primary Care Provider [phone] Encounter Details Date Type Department Care Team (Late Contact Info) Description 07/25/[address] [facility] - Main Lab 299 [facility] [place] [id number] Salty Barber MD [address] [place] [address] Other fatigue; Other specified abnormal findings of blood chemistry; Malignant neoplasm of prostate (CMS/HCC V24, CMS/HCC V28) Social History Tobacco Use Types Packs/Day Years [...] Encounters Date Type Department Care Team (Late Contact Info) Description 02/02/2025 2:30 PM EST Office Visit [facility] [address] [facility] [address] [place] [phone] Bri Jackson MD [address] [facility] [address] [place] [address] documented as of this encounter Procedures Procedure Name Priority Date/Time Associated Diagnosis Comments OCCULT BLOOD STOOL, GUAIAC Routine 07/24/2024 5:15 PM EDT Other fatigue Other specified abnormal findings of blood chemistry Malignant neoplasm of prostate ([facility] V24, [facility] V28) documented in this encounter Results * Occult blood stool, guaiac (07/24/2024 5:15 PM EDT) Occult Blood, Stool #1 Negative Negative 07/25/2024 1:39 PM EDT [facility] Stool Rectum structure / Unknown Non-blood Collection / Unknown 07/24/2024 5:15 PM EDT 07/25/2024 12:50 PM EDT Salty Barber MD LAB BODY FLUIDS AND STOOLS [facility]ENO Final Result [facility] [address] [place] [address], documented in this encounter Visit Diagnoses Diagnosis Other fatigue Other specified abnormal findings of blood chemistry Malignant neoplasm of prostate ([facility] V24, [facility] V28) Malignant neoplasm of prostate documented in this encounter Care Teams Neurologist Relationship Specialty Start Date End Date Leslie Gamble MD [address] [place] [address] PCP - General 09/11/10 documented as of this encounter
--- OUTSIDE RECORDS SUMMARY | 2024-07-29 12:01 | XMS_ITS | Clinical Summary ---
Author Organization [address] [place] [address] [place] [phone] Phone Care Team Providers Care Crime Scene Photographer Name Role Phone Leslie Gamble MD Primary Care Provider [phone] Allergies No known active allergies Medications atorvastatin [...] (COREG CR) 20 mg 24 hr capsule TAKE 1 CAPSULE BY MOUTH 1 TIME EACH DAY. DO NOT CRUSH OR CHEW. 90 capsule 1 07/12/19 25 Active carvedilol CR (COREG CR) 40 mg 24 hr capsule TAKE 1 CAPSULE BY MOUTH EVERY DAY 90 capsule 2 06/22/19 25 025 Discontinued(Re order) carvedilol CR (COREG CR) 20 mg 24 hr capsule Take 1 capsule (20 mg total) by mouth 1 (one) time each day. Do not crush or chew. 07/05/19 25 025 Discontinued(Re order) carvedilol CR (COREG CR) 20 mg 24 hr capsule Take 1 capsule (20 mg total) by mouth 1 (one) time each day. Do not crush or chew. 30 capsule 2 07/05/19 25 04/21/2 025 Discontinued Active Problems Problem Noted Date Diagnosed Date [...] Encounters Date Type Department Care Team Description 07/27/2024 Lab Requisition [facility] [address] [place] [phone] Salty Barber MD Essential (primary) hypertension; Atherosclerotic heart disease of [place] coronary artery without angina pectoris; Chronic diastolic (congestive) heart failure (CMS/HCC V24, CMS/[facility] V28); Displaced intertrochanteric fracture of right femur, subsequent encounter for closed fracture with routine healing 07/25/2024 Lab Requisition [facility] [address] [place] [phone] Salty Barber MD Other fatigue; Other specified abnormal findings of blood chemistry; Malignant neoplasm of prostate (CMS/[facility] V24, CMS/[facility] V28) 07/23/2024 Lab Requisition [facility] [address] [place] [phone] Salty Barber MD Essential (primary) hypertension; Atherosclerotic heart disease of [place] coronary artery without angina pectoris; Chronic diastolic (congestive) heart failure (CMS/HCC V24, CMS/[facility] V28); Displaced intertrochanteric fracture of right femur, subsequent encounter for closed fracture with routine healing 07/20/2024 Lab Requisition [facility] [address] [place] [phone] Salty Barber MD Essential (primary) hypertension; Atherosclerotic heart disease of [place] coronary artery without angina pectoris; Chronic diastolic (congestive) heart failure (CMS/[facility] V24, CMS/[facility] V28); Displaced intertrochanteric fracture of right femur, subsequent encounter for closed fracture with routine healing 07/16/2024 Lab Requisition [facility] [address] [place] [phone] Salty Barber MD Encounter for other orthopedic aftercare; Displaced intertrochanteric fracture of right femur, sequela; Essential (primary) hypertension 07/15/2024 Lab Requisition [facility] [address] [place] [phone] Salty Barber MD Essential (primary) hypertension; Atherosclerotic heart disease of [place] coronary artery without angina pectoris; Chronic diastolic (congestive) heart failure (CMS/HCC V24, CMS/HCC V28); Displaced intertrochanteric fracture of right femur, subsequent encounter for closed fracture with routine healing 07/14/[address] [facility] [address] [facility] [place] [phone] Salty Barber MD Essential (primary) hypertension; Displaced intertrochanteric fracture of right femur, subsequent encounter for closed fracture with routine healing 07/04/2024 2:00 PM EDT Office Visit [facility] [address] [facility] [address] [place] [phone] Bri Jackson MD Coronary artery disease involving [place] coronary artery of [place] heart with other form of angina pectoris [...] Description 02/02/2025 2:30 PM EST Office Visit [facility] [address] [facility] [address] [place] [phone] Bri Jackson MD 300 [facility] [address] [place] [address] Health Maintenance Due Date Last Done Comments [...] 05/24/2020, 05/03/2020 Hypertension/CHF/CAD Annual BMP Blood Test 07/28/2025 07/28/2024, 07/25/2024, 07/21/2024, Additional history exists Influenza Vaccine Completed 01/01/2024, , 01/13/2022, Additional [...] Associated Diagnosis Comments COMPLETE BLOOD COUNT Routine 07/28/2024 5:12 AM EDT Essential (primary) hypertension Atherosclerotic heart disease of [place] coronary artery without angina pectoris Chronic diastolic (congestive) heart failure (CMS/HCC V24, CMS/HCC V28) Displaced intertrochanteric fracture of right femur, subsequent encounter for closed fracture with routine healing BASIC METABOLIC PANEL Routine 07/28/2024 5:10 AM EDT Essential (primary) hypertension Atherosclerotic heart disease of [place] coronary artery without angina pectoris Chronic diastolic (congestive) heart failure (CMS/HCC V24, CMS/HCC V28) Displaced intertrochanteric fracture of right femur, subsequent encounter for closed fracture with routine healing COMPREHENSIVE METABOLIC PANEL Routine 07/25/2024 5:25 AM EDT Essential (primary) hypertension Atherosclerotic heart disease of [place] coronary artery without angina pectoris Chronic diastolic (congestive) heart failure (CMS/HCC V24, CMS/HCC V28) Displaced intertrochanteric fracture of right femur, subsequent encounter for closed fracture with routine healing COMPLETE BLOOD COUNT Routine 07/25/2024 5:25 AM EDT Essential (primary) hypertension Atherosclerotic heart disease of [place] coronary artery without angina pectoris Chronic diastolic (congestive) heart failure (CMS/HCC V24, CMS/HCC V28) Displaced intertrochanteric fracture of right femur, subsequent encounter for closed fracture with routine healing OCCULT BLOOD STOOL, GUAIAC Routine 07/24/2024 5:15 PM EDT Other fatigue Other specified abnormal findings of blood chemistry Malignant neoplasm of prostate (CMS/HCC V24, CMS/HCC V28) BASIC METABOLIC PANEL Routine 07/21/2024 6:32 AM EDT Essential (primary) hypertension Atherosclerotic heart disease of [place] coronary artery without angina pectoris Chronic diastolic (congestive) heart failure (CMS/HCC V24, CMS/HCC V28) Displaced intertrochanteric fracture of right femur, subsequent encounter for closed fracture with routine healing COMPLETE BLOOD COUNT Routine 07/21/2024 6:32 AM EDT Essential (primary) hypertension Atherosclerotic heart disease of [place] coronary artery without angina pectoris Chronic diastolic (congestive) heart failure (CMS/HCC V24, CMS/HCC V28) Displaced intertrochanteric fracture of right femur, subsequent encounter for closed fracture with routine healing COMPREHENSIVE METABOLIC PANEL Routine 07/18/2024 5:30 AM EDT Essential (primary) hypertension Atherosclerotic heart disease of [place] coronary artery without angina pectoris Chronic diastolic (congestive) heart failure (CMS/HCC V24, CMS/HCC V28) Displaced intertrochanteric fracture of right femur, subsequent encounter for closed fracture with routine healing COMPLETE BLOOD COUNT Routine 07/18/2024 5:30 AM EDT Essential (primary) hypertension Atherosclerotic heart disease of [place] coronary artery without angina pectoris Chronic diastolic (congestive) heart failure (CMS/HCC V24, CMS/HCC V28) Displaced intertrochanteric fracture of right femur, subsequent encounter for closed fracture with routine healing COMPLETE BLOOD COUNT Routine 07/16/2024 8:41 AM EDT Encounter for other orthopedic aftercare Displaced intertrochanteric fracture of right femur, sequela Essential (primary) hypertension COMPREHENSIVE METABOLIC PANEL Routine 07/14/2024 4:51 AM EDT Essential (primary) hypertension Displaced intertrochanteric fracture of right femur, subsequent encounter for closed fracture with routine healing COMPLETE BLOOD COUNT Routine 07/14/2024 4:51 AM EDT Essential (primary) hypertension Displaced intertrochanteric fracture of right femur, subsequent encounter for closed fracture with routine healing ECG 12-LEAD Routine 07/04/2024 2:04 PM EDT Coronary artery disease involving [place] coronary artery of [place] heart with other form of angina pectoris (CMS/HCC V24) from Last 3 Months Results * (ABNORMAL) Complete blood count (07/28/2024 5:12 AM EDT) Only the most recent of6 resultswithin the time period is included. [facility] WBC 5.1 4.8 - 10.8 K/mcL LAB HEMETOLOGY METHOD 07/28/2024 9:07 AM [facility] RBC 2.90(L) 4.50 - 5.50 M/mcL LAB HEMETOLOGY METHOD 07/28/2024 9:07 AM [facility] Hemoglobin 8.5(L) 13.5 - 17.5 g/dL LAB HEMETOLOGY METHOD 07/28/2024 9:07 AM [facility] Hematocrit 28.6(L) 42.0 - 54.0 % LAB HEMETOLOGY METHOD 07/28/2024 9:07 AM [facility] MCV 99.0(H) 79.0 - 98.0 FL LAB HEMETOLOGY METHOD 07/28/2024 9:07 AM [facility] MCH 29.4 27.0 - 32.0 pcg LAB HEMETOLOGY METHOD 07/28/2024 9:07 AM [facility] MCHC 29.7(L) 32.0 - 37.0 g/dL LAB HEMETOLOGY METHOD 07/28/2024 9:07 AM [facility] RDW 18.6(H) 11.0 - 15.0 % LAB HEMETOLOGY METHOD 07/28/2024 9:07 AM [facility] Platelets 368 130 - 400 K/mcL LAB HEMETOLOGY METHOD 07/28/2024 9:07 AM [facility] MPV 9.5 7.0 - 11.0 FL LAB HEMETOLOGY METHOD 07/28/2024 9:07 AM [facility] NRBC 0.0 <1.0 % LAB HEMETOLOGY METHOD 07/28/2024 9:07 AM [facility] NRBC Absolute 0.00 <0.10 K/mcL LAB HEMETOLOGY METHOD 07/28/2024 9:07 AM [facility] Blood Venous blood specimen / Unknown Venipuncture / Unknown 07/28/2024 5:12 AM EDT 07/28/2024 8:54 AM EDT us Salty Barber MD LAB BLOOD ORDERABLES Final Resu lt [facility] [address] [place] [address], [place] [phone] * (ABNORMAL) Basic metabolic panel (07/28/2024 5:10 AM EDT) Only the most recent of2 resultswithin the time period is included. Sodium 137 133 - 145 mmol/L LAB CHEMISTRY METHOD 07/28/2024 10:00 AM [facility] Potassium 4.6 3.5 - 5.5 mmol/L LAB CHEMISTRY METHOD 07/28/2024 10:00 AM [facility] Chloride 105 96 - 110 mmol/L LAB CHEMISTRY METHOD 07/28/2024 10:00 AM [facility] CO2 28 21 - 32 mmol/L LAB CHEMISTRY METHOD 07/28/2024 10:00 AM [facility] Anion Gap 4 3 - 11 LAB CHEMISTRY METHOD 07/28/2024 10:00 AM [facility] Glucose 86 70 - 100 mg/dL LAB CHEMISTRY METHOD 07/28/2024 10:00 AM [facility] BUN 20 5 - 25 mg/dL LAB CHEMISTRY METHOD 07/28/2024 10:00 AM [facility] Creatinine 0.85 0.70 - 1.30 mg/dL LAB CHEMISTRY METHOD 07/28/2024 10:00 AM [facility] eGFR 86 >=60 mL/min/1. 73m2 LAB CHEMISTRY METHOD 07/28/2024 10:00 AM [facility] Comment:Calculation based on the Chronic Kidney Disease Epidemiology Collaboration (CKD-EPI) equation refit without adjustment for race. BUN/Creatinine Ratio 23.5 LAB CHEMISTRY METHOD 07/28/2024 10:00 AM [facility] Calcium 8.3(L) 8.5 - 10.5 mg/dL LAB CHEMISTRY METHOD 07/28/2024 10:00 AM [facility] Blood Venous blood specimen / Unknown Venipuncture / Unknown 07/28/2024 5:10 AM EDT 07/28/2024 8:45 AM EDT us Salty Babrer MD LAB BLOOD ORDERABLES Final Resu lt [facility] [address] [place] [address], * (ABNORMAL) Comprehensive metabolic panel (07/25/2024 5:25 AM EDT) Only the most recent of3 resultswithin the time period is included. Sodium 142 133 - 145 mmol/L LAB CHEMISTRY METHOD 07/25/2024 9:45 AM [facility] Potassium 5.0 3.5 - 5.5 mmol/L LAB CHEMISTRY METHOD 07/25/2024 9:45 AM [facility] Chloride 109 96 - 110 mmol/L LAB CHEMISTRY METHOD 07/25/2024 9:45 AM [facility] CO2 27 21 - 32 mmol/L LAB CHEMISTRY METHOD 07/25/2024 9:45 AM [facility] Anion Gap 6 3 - 11 LAB CHEMISTRY METHOD 07/25/2024 9:45 AM [facility] Glucose 85 70 - 100 mg/dL LAB CHEMISTRY METHOD 07/25/2024 9:45 AM [facility] BUN 18 5 - 25 mg/dL LAB CHEMISTRY METHOD 07/25/2024 9:45 AM [facility] Creatinine 0.84 0.70 - 1.30 mg/dL LAB CHEMISTRY METHOD 07/25/2024 9:45 AM [facility] eGFR 87 >=60 mL/min/1. 73m2 LAB CHEMISTRY METHOD 07/25/2024 9:45 AM [facility] Comment:Calculation based on the??Chronic Kidney Disease Epidemiology Collaboration (CKD-EPI) equation refit??without adjustment for race. BUN/Creatinine Ratio 21.4 LAB CHEMISTRY METHOD 07/25/2024 9:45 AM [facility] Calcium 8.1(L) 8.5 - 10.5 mg/dL LAB CHEMISTRY METHOD 07/25/2024 9:45 AM [facility] AST (SGOT) 22 10 - 42 unit/L LAB CHEMISTRY METHOD 07/25/2024 9:45 AM [facility] ALT (SGPT) 20 10 - 60 unit/L LAB CHEMISTRY METHOD 07/25/2024 9:45 AM [facility] Alkaline Phosphatase 138(H) 42 - 121 unit/L LAB CHEMISTRY METHOD 07/25/2024 9:45 AM [facility] Comment:Results verified by repeat testing Total Protein 5.8(L) 6.0 - 8.0 g/dL LAB CHEMISTRY METHOD 07/25/2024 9:45 AM [facility] Albumin 3.0(L) 3.2 - 5.0 g/dL LAB CHEMISTRY METHOD 07/25/2024 9:45 AM [facility] Total Bilirubin 0.5 0.0 - 1.4 mg/dL LAB CHEMISTRY METHOD 07/25/2024 9:45 AM [facility] Blood Venous blood specimen / Unknown Venipuncture / Unknown 07/25/2024 5:25 AM EDT 07/25/2024 8:25 AM EDT Salty Barber MD LAB BLOOD ORDERABLES Final Resu lt [facility] [address] [place] [address], [place] [phone] * Occult blood stool, guaiac (07/24/2024 5:15 PM EDT) Occult Blood, Stool #1 Negative Negative 07/25/2024 1:39 PM EDT [facility] Stool Rectum structure / Unknown Non-blood Collection / Unknown 07/24/2024 5:15 PM EDT 07/25/2024 12:50 PM EDT Salty Barber MD LAB BODY FLUIDS AND STOOLS ORDE RABLES Final Result Performing Organization Address [facility] Co de Phone Number [facility] [address] [place] [address], [place] [phone] * ECG 12 lead (07/04/2024 2:04 PM EDT) Ventricular Rate ECG 64 BPM GEMUSE Atrial Rate 64 BPM GEMUSE P-R Interval 204 ms GEMUSE QRS Duration 134 ms GEMUSE Q-T Interval 432 ms GEMUSE QTc 445 ms GEMUSE P Wave Rule 35 degrees GEMUSE R Rule 45 degrees GEMUSE T Rule 37 degrees GEMUSE ECG Interpretation Normal sinus rhythm Right bundle branch block Abnormal ECG When compared with ECG of 04-DEC-2010 14:27, no chnage compared with previous one Confirmed by Jayce JACKSON YUFENG ([id number]) on 07/04/2024 2:42:08 PM GEMUSE 07/04/2024 2:04 PM EDT 07/04/2024 2:42 PM EDT us Bri Jackson MD ECG ORDERABLES Final Result Performing Organization Address City/[facility]/ZIP Co de Phone Number GEMUSE from Last 3 Months Insurance MEDICARE [facility] Care Teams Crime Scene Photographer Relationship Specialty Start Date End Date Leslie Gamble MD [address] [place] [address] PCP - General 09/11/10
--- OUTSIDE RECORDS SUMMARY | 2024-07-29 12:01 | XMS_ITS | Encounter Summary ---
Author Organization [facility] Address [address] [place] [address] Care Team Providers Care Stained Glass Glazier Name Role Phone Leslie Gamble MD Primary Care Provider [phone] Encounter Details Date Type Department Care Team (Latest Contact Info) Description 07/16/2024 Lab Requisition [facility] [address] [facility] [place] [address] Salty Barber MD [address] [place] [phone] Encounter for other orthopedic aftercare; Displaced intertrochanteric fracture of right femur, sequela; Essential (primary) hypertension Social History Tobacco Use Types Packs/Day Years [...] [facility] [address] [facility] [address] [place] [phone] Bri Jackson MD [address] [facility] [address] [place] [address] documented as of this encounter Procedures Procedure Name Priority Date/Time Associated Diagnosis Comments COMPLETE BLOOD COUNT Routine 07/16/2024 8:41 AM EDT Encounter for other orthopedic aftercare Displaced intertrochanteric fracture of right femur, sequela Essential (primary) hypertension documented in this encounter Results * (ABNORMAL) Complete blood count (07/16/2024 8:41 AM EDT) WBC 5.9 4.8 - 10.8 K/mcL LAB HEMETOLOGY METHOD 07/16/2024 11:30 AM [facility] RBC 2.90(L) 4.50 - 5.50 M/mcL LAB HEMETOLOGY METHOD 07/16/2024 11:30 AM [facility] Hemoglobin 8.4(L) 13.5 - 17.5 g/dL LAB HEMETOLOGY METHOD 07/16/2024 11:30 AM [facility] LAB Hematocrit 27.7(L) 42.0 - 54.0 % LAB HEMETOLOGY METHOD 07/16/2024 11:30 AM [facility] LAB MCV 95.2 79.0 - 98.0 FL LAB HEMETOLOGY METHOD 07/16/2024 11:30 AM [facility] LAB MCH 28.9 27.0 - 32.0 pcg LAB HEMETOLOGY METHOD 07/16/2024 11:30 AM [facility] MCHC 30.3(L) 32.0 - 37.0 g/dL LAB HEMETOLOGY METHOD 07/16/2024 11:30 AM [facility] LAB RDW 15.1(H) 11.0 - 15.0 % LAB HEMETOLOGY METHOD 07/16/2024 11:30 AM [facility] Platelets 262 130 - 400 K/mcL LAB HEMETOLOGY METHOD 07/16/2024 11:30 AM [facility] MPV 10.4 7.0 - 11.0 FL LAB HEMETOLOGY METHOD 07/16/2024 11:30 AM EDT [facility] NRBC 0.0 <1.0 % LAB HEMETOLOGY METHOD 07/16/2024 11:30 AM EDT [facility] NRBC Absolute 0.00 <0.10 K/mcL LAB HEMETOLOGY METHOD 07/16/2024 11:30 AM EDT [facility] Blood Venous blood specimen / Unknown Venipuncture / Unknown 07/16/2024 8:41 AM EDT 07/16/2024 10:37 AM EDT us Salty Barber MD LAB BLOOD ORDERABLES Final Resu lt [facility] [address] [place] [address], documented in this encounter Visit Diagnoses Diagnosis Encounter for other orthopedic aftercare Displaced intertrochanteric fracture of right femur, sequela Essential (primary) hypertension Unspecified essential hypertension documented in this encounter Care Teams Stained Glass Glazier Relationship Specialty Start Date End Date Leslie Gamble MD [address] [place] [address] PCP - General 09/11/10 documented as of this encounter
--- OUTSIDE RECORDS SUMMARY | 2024-07-29 12:01 | XMS_ITS | Encounter Summary ---
Author Organization [employer] Address [address] [place] [address] Care Team Providers Care Director Global Strategic Publisher Sales Name Role Phone Leslie Gamble MD Primary Care Provider [phone] Encounter Details Date Type Department Care Team (Latest Contact Info) Description 07/27/[address] [facility] - Main Lab 299 [facility] [place] [address] Salty Barber MD [address] [place] [phone] Essential (primary) hypertension; Atherosclerotic heart disease of grayling coronary artery without angina pectoris; Chronic diastolic [...] Description 02/02/2025 2:30 PM EST Office Visit [facility] - [facility] [address] [facility] [address] [place] [address] Bri Jackson MD [address] [place] [address] documented as of this encounter Procedures Procedure Name Priority Date/Time Associated Diagnosis Comments COMPLETE BLOOD COUNT Routine 07/28/2024 5:12 AM EDT Essential (primary) hypertension Atherosclerotic heart disease of grayling coronary artery without angina pectoris Chronic diastolic (congestive) heart failure (CMS/HCC V24, CMS/HCC V28) Displaced intertrochanteric fracture of right femur, subsequent encounter for closed fracture with routine healing BASIC METABOLIC PANEL Routine 07/28/2024 5:10 AM EDT Essential (primary) hypertension Atherosclerotic heart disease of grayling coronary artery without angina pectoris Chronic diastolic (congestive) heart failure (CMS/HCC V24, CMS/HCC V28) Displaced intertrochanteric fracture of right femur, subsequent encounter for closed fracture with routine healing documented in this encounter Results * (ABNORMAL) Complete blood count (07/28/2024 5:12 AM EDT) WBC 5.1 4.8 - 10.8 K/mcL LAB HEMETOLOGY METHOD 07/28/2024 9:07 AM [facility] RBC 2.90(L) 4.50 - 5.50 M/mcL LAB HEMETOLOGY METHOD 07/28/2024 9:07 AM [facility] Hemoglobin 8.5(L) 13.5 - 17.5 g/dL LAB HEMETOLOGY METHOD 07/28/2024 9:07 AM [facility] Hematocrit 28.6(L) 42.0 - 54.0 % LAB HEMETOLOGY METHOD 07/28/2024 9:07 AM [facility] MCV 99.0(H) 79.0 - 98.0 FL LAB HEMETOLOGY METHOD 07/28/2024 9:07 AM [facility] MCH 29.4 27.0 - 32.0 pcg LAB HEMETOLOGY METHOD 07/28/2024 9:07 AM [facility] MCHC 29.7(L) 32.0 - 37.0 g/dL LAB HEMETOLOGY METHOD 07/28/2024 9:07 AM EDT [facility] RDW 18.6(H) 11.0 - 15.0 % LAB HEMETOLOGY METHOD 07/28/2024 9:07 AM EDT [facility] Platelets 368 130 - 400 K/mcL LAB HEMETOLOGY METHOD 07/28/2024 9:07 AM EDT [facility] MPV 9.5 7.0 - 11.0 FL LAB HEMETOLOGY METHOD 07/28/2024 9:07 AM EDT [facility] NRBC 0.0 <1.0 % LAB HEMETOLOGY METHOD 07/28/2024 9:07 AM EDT [facility] NRBC Absolute 0.00 <0.10 K/mcL LAB HEMETOLOGY METHOD 07/28/2024 9:07 AM EDT [facility] Blood Venous blood specimen / Unknown Venipuncture / Unknown 07/28/2024 5:12 AM EDT 07/28/2024 8:54 AM EDT us Salty Barber MD LAB BLOOD ORDERABLES Final Resu lt [facility] [address] [place] [address], * (ABNORMAL) Basic metabolic panel (07/28/2024 5:10 AM EDT) Sodium 137 133 - 145 mmol/L LAB CHEMISTRY METHOD 07/28/2024 10:00 AM EDT [facility] Potassium 4.6 3.5 - 5.5 mmol/L LAB CHEMISTRY METHOD 07/28/2024 10:00 AM EDT [facility] Chloride 105 96 - 110 mmol/L LAB CHEMISTRY METHOD 07/28/2024 10:00 AM [facility] CO2 28 21 - 32 mmol/L LAB CHEMISTRY METHOD 07/28/2024 10:00 AM [facility] Anion Gap 4 3 - 11 LAB CHEMISTRY METHOD 07/28/2024 10:00 AM [facility] Glucose 86 70 - 100 mg/dL LAB CHEMISTRY METHOD 07/28/2024 10:00 AM [facility] BUN 20 5 - 25 mg/dL LAB CHEMISTRY METHOD 07/28/2024 10:00 AM [facility] Creatinine 0.85 0.70 - 1.30 mg/dL LAB CHEMISTRY METHOD 07/28/2024 10:00 AM [facility] eGFR 86 >=60 mL/min/1. 73m2 LAB CHEMISTRY METHOD 07/28/2024 10:00 AM [facility] Comment:Calculation based on the Chronic Kidney Disease Epidemiology Collaboration (CKD-EPI) equation refit without adjustment for race. BUN/Creatinine Ratio 23.5 LAB CHEMISTRY METHOD 07/28/2024 10:00 AM [facility] Calcium 8.3(L) 8.5 - 10.5 mg/dL LAB CHEMISTRY METHOD 07/28/2024 10:00 AM [facility] Blood Venous blood specimen / Unknown Venipuncture / Unknown 07/28/2024 5:10 AM EDT 07/28/2024 8:45 AM EDT us Salty Barber MD LAB BLOOD ORDERABLES Final Resu lt [facility] [address] [place] [address], documented in this encounter Visit Diagnoses Diagnosis Essential (primary) hypertension Unspecified essential hypertension Atherosclerotic heart disease of grayling coronary artery without angina pectoris Chronic diastolic (congestive) heart failure (CMS/HCC V24, CMS/HCC V28) Displaced intertrochanteric fracture of right femur, subsequent encounter for closed fracture with routine healing documented in this encounter Care Teams Director Global Strategic Publisher Sales Relationship Specialty Start Date End Date Leslie Gamble MD [address] PCP - General 09/11/10 documented as of this encounter
--- OUTSIDE RECORDS SUMMARY | 2024-07-29 12:01 | XMS_ITS | Encounter Summary ---
Author Organization [employer] Address [address] [place] [address] Care Team Providers Care Shelf Drier Operator Name Role Phone Leslie Gamble MD Primary Care Provider [phone] Encounter Details Date Type Department Care Team (Latest Contact Info) Description 07/20/2024 Lab Requisition [facility] - Main Lab 299 [facility] [place] [address] Salty Barber MD [address] [place] [phone] Essential (primary) hypertension; Atherosclerotic heart disease of kashia coronary artery without angina pectoris; Chronic diastolic [...] Description 02/02/2025 2:30 PM EST Office Visit [facility] - [facility] [address] [facility] [address] [place] [address] Bri Jackson MD [address] [place] [address] documented as of this encounter Procedures Procedure Name Priority Date/Time Associated Diagnosis Comments COMPLETE BLOOD COUNT Routine 07/21/2024 6:32 AM EDT Essential (primary) hypertension Atherosclerotic heart disease of kashia coronary artery without angina pectoris Chronic diastolic (congestive) heart failure (CMS/HCC V24, CMS/HCC V28) Displaced intertrochanteric fracture of right femur, subsequent encounter for closed fracture with routine healing BASIC METABOLIC PANEL Routine 07/21/2024 6:32 AM EDT Essential (primary) hypertension Atherosclerotic heart disease of kashia coronary artery without angina pectoris Chronic diastolic (congestive) heart failure (CMS/HCC V24, CMS/HCC V28) Displaced intertrochanteric fracture of right femur, subsequent encounter for closed fracture with routine healing documented in this encounter Results * (ABNORMAL) Basic metabolic panel (07/21/2024 6:32 AM EDT) Sodium 141 133 - 145 mmol/L LAB CHEMISTRY METHOD 07/21/2024 10:23 AM [facility] Potassium 4.9 3.5 - 5.5 mmol/L LAB CHEMISTRY METHOD 07/21/2024 10:23 AM [facility] Chloride 108 96 - 110 mmol/L LAB CHEMISTRY METHOD 07/21/2024 10:23 AM [facility] CO2 29 21 - 32 mmol/L LAB CHEMISTRY METHOD 07/21/2024 10:23 AM [facility] Anion Gap 4 3 - 11 LAB CHEMISTRY METHOD 07/21/2024 10:23 AM [facility] Glucose 95 70 - 100 mg/dL LAB CHEMISTRY METHOD 07/21/2024 10:23 AM [facility] BUN 14 5 - 25 mg/dL LAB CHEMISTRY METHOD 07/21/2024 10:23 AM [facility] Creatinine 0.78 0.70 - 1.30 mg/dL LAB CHEMISTRY METHOD 07/21/2024 10:23 AM EDT [facility] eGFR 88 >=60 mL/min/1. 73m2 LAB CHEMISTRY METHOD 07/21/2024 10:23 AM EDT [facility] Comment:Calculation based on the??Chronic Kidney Disease Epidemiology Collaboration (CKD-EPI) equation refit??without adjustment for race. BUN/Creatinine Ratio 17.9 LAB CHEMISTRY METHOD 07/21/2024 10:23 AM EDT [facility] Calcium 8.1(L) 8.5 - 10.5 mg/dL LAB CHEMISTRY METHOD 07/21/2024 10:23 AM [facility] Blood Venous blood specimen / Unknown Venipuncture / Unknown 07/21/2024 6:32 AM EDT 07/21/2024 9:27 AM EDT us Salty Barber MD LAB BLOOD ORDERABLES Final Resu lt [facility] [address] [place] [address], [place] [phone] * (ABNORMAL) Complete blood count (07/21/2024 6:32 AM EDT) WBC 5.5 4.8 - 10.8 K/mcL LAB HEMETOLOGY METHOD 07/21/2024 9:55 AM EDT [facility] RBC 2.70(L) 4.50 - 5.50 M/mcL LAB HEMETOLOGY METHOD 07/21/2024 9:55 AM EDT [facility] Hemoglobin 8.0(L) 13.5 - 17.5 g/dL LAB HEMETOLOGY METHOD 07/21/2024 9:55 AM T [facility] Hematocrit 26.3(L) 42.0 - 54.0 % LAB HEMETOLOGY METHOD 07/21/2024 9:55 AM EDT [facility] MCV 96.7 79.0 - 98.0 FL LAB HEMETOLOGY METHOD 07/21/2024 9:55 AM EDT [facility] MCH 29.4 27.0 - 32.0 pcg LAB HEMETOLOGY METHOD 07/21/2024 9:55 AM EDT [facility] MCHC 30.4(L) 32.0 - 37.0 g/dL LAB HEMETOLOGY METHOD 07/21/2024 9:55 AM EDT [facility] RDW 17.1(H) 11.0 - 15.0 % LAB HEMETOLOGY METHOD 07/21/2024 9:55 AM EDT [facility] Platelets 356 130 - 400 K/mcL LAB HEMETOLOGY METHOD 07/21/2024 9:55 AM EDT [facility] MPV 9.6 7.0 - 11.0 FL LAB HEMETOLOGY METHOD 07/21/2024 9:55 AM EDT [facility] NRBC 0.0 <1.0 % LAB HEMETOLOGY METHOD 07/21/2024 9:55 AM EDT [facility] NRBC Absolute 0.00 <0.10 K/mcL LAB HEMETOLOGY METHOD 07/21/2024 9:55 AM T [facility] Blood Venous blood specimen / Unknown Venipuncture / Unknown 07/21/2024 6:32 AM EDT 07/21/2024 9:27 AM EDT us Salty Barber MD LAB BLOOD ORDERABLES Final Resu lt [facility] [address] [place] [address], documented in this encounter Visit Diagnoses Diagnosis Essential (primary) hypertension Unspecified essential hypertension Atherosclerotic heart disease of kashia coronary artery without angina pectoris Chronic diastolic (congestive) heart failure (CMS/HCC V24, CMS/HCC V28) Displaced intertrochanteric fracture of right femur, subsequent encounter for closed fracture with routine healing documented in this encounter Care Teams Shelf Drier Operator Relationship Specialty Start Date End Date Leslie Gamble MD [address] PCP - General 09/11/10 documented as of this encounter
--- OUTSIDE RECORDS SUMMARY | 2024-07-29 12:01 | XMS_ITS ---
Author Organization [facility] Address [address] [place] [address] Care Team Providers Care Stone Polisher Name Role Phone Leslie Gamble MD Primary Care Provider Talon Srivastava Unavailable [phone] Encounters Encounter Location Date [facility] [address] [place] [phone] 07/27/2024 Talon Ceron Plan Of Treatment No Information Progress Notes * Tr LAMB TDOB: [birth year] (84 yo M)Acc No.[id number]:07/27/2024 Progress Note Patient:Tr LATHAM Provider:?Talon Ceron DPM :1940???Age:84 Y???Sex:Male Storm e:07/27/2024 Address:[address] [place], [place] [phone] Pcp:Leslie Gamble MD Subjective: * Chief Complaints: * ??? * Medical History:? Objective: * Vitals:? Assessment: Plan: * Treatment: * Images: * The named appointment provid er may or may not be the originator of this progress note, and it is not deemed complete until electronically signed by the appointment provider. Sign off status: Pending * Provider:?Talon Ceron DPM Date:?2024 Generated for Vel santiago/Lori/eTransmitting on:?07/29/2024 12:01 PM EDT
--- OUTSIDE RECORDS SUMMARY | 2024-07-29 12:02 | XMS_ITS ---
Author Organization [facility] Address [address] [place] [address] Care Team Providers Care Restaurant Hourly Manager Name Role Phone Leslie Gamble MD Primary Care Provider Talon Srivastava Unavailable [phone] Flor Chavez [phone] Encounters Encounter Location Date Provider Diagnosis [address] [phone] 2024 Flor Chavez Plan Of Treatment No Information Progress Notes * Tr LAMB TDOB: [birth year] (84 yo M)Acc No.[id number]:2024 Progress Note Patient:Tr LATHAM Provider:?Flor Chavez DPM :1940???Age:84 Y???Sex:Male Storm e:2024 Address:[address] [place] [phone] Pcp:Leslie Gamble MD Subjective: * Chief Complaints: * ??? * Medical History:? Objective: * Vitals:? Assessment: Plan: * Treatment: * Images: * The named appointment provid er may or may not be the originator of this progress note, and it is not deemed complete until electronically signed by the appointment provider. Sign off status: Pending * Provider:?Flor Chavez DPM Date:?0 2024 Generated for Printi ng/Faxing/eTransmitting on:?07/29/2024 12:01 PM EDT
== END 2024-07-29 12:55 | disposition home or self-care (01) ==
LOC: HO.HOS 11:34
PROVIDERS: PCP Internal Medicine; Visit Provider Physician Assistant
DX: S72.001A Fracture of unspecified part of neck of right femur, initial encounter for closed fracture (principal)
CPT/HCPCS: 99024

== ENCOUNTER 2024-08-26 10:51 | Outpatient (REF) | payer MEDICARE, OTHER, SELFPAY ==
[2024-08-26 10:57] LABS: MANUAL DIFF FLAG NO
[2024-08-26 11:13] LABS: Estimated Average Glucose 100 mg/dL; Hemoglobin A1c % 5.1 % (<6.0)
[2024-08-26 11:17] LABS: Basophils Percent Auto 0.9 % (0-2); Eosinophils Absolute Auto 0.2 X10*3/uL (0.0-0.4); Eosinophils Percent Auto 3.4 % (0-4); Hematocrit 37.4 % (42.0-52.0); Imm Gran Abs Auto 0.01 X10*3/uL (0.00-0.03); Imm Gran Pct Auto 0.2 % (0.0-0.4); Lymphocytes Absolute Auto 0.9 X10*3/uL (1.2-4.9); Lymphocytes Percent Auto 19.8 % (20-40); Mean Corpuscular HGB Conc 31.3 g/dl (31.0-36.0); Mean Corpuscular Volume 92.6 fL (80.0-98.0); Mean Platelet Volume 10.5 fL (9.4-12.4); Monocytes Absolute Auto 0.3 X10*3/uL (0.1-1.2); Monocytes Percent Auto 6.5 % (2-11); Neutrophils Absolute Auto 3.2 x10*3/uL (2.0-8.3); Neutrophils Percent Auto 69.2 % (45-73); Platelet Count 277 X10*3/uL (160-400); Red Blood Count 4.04 X10*6/uL (4.60-5.80); Red Cell Distribution Width 15.6 % (11.0-16.0); White Blood Count 4.6 X10*3/uL (4.8-10.8)
[2024-08-26 11:19] LABS: Hemoglobin 11.7 g/dl (14.0-18.0)
[2024-08-26 11:25] LABS: Appearance Urine Clear; Color Urine Yellow; Glucose Urine UA Negative (Negative); Leukocyte Esterase Urine Negative (Negative); Nitrite Urine Negative (Negative); Urine Blood Negative (Negative); Urine Ketones Negative (Negative); Urine Protein Negative (Neg-Trace)
--- OUTSIDE RECORDS SUMMARY | 2024-08-26 11:45 | XMS_ITS | Encounter Summary ---
Author Organization [employer] Address [address] [place] [address] Care Team Providers Care Communication Spec Name Role Phone Leslie Gamble MD Primary Care Provider [phone] Encounter Details Date Type Department Care Team (Latest Contact Info) Description 07/31/2024 Lab Requisition [facility] - Main Lab 299 [facility] [place] [address] Salty Barber MD [address] [place] [phone] Essential (primary) hypertension; Atherosclerotic heart disease of [place] coronary artery without angina pectoris; Chronic diastolic [...] Description 02/02/2025 2:30 PM EST Office Visit [facility] - [facility] [address] [facility] [address] [place] [address] Bri Jackson MD [address] [place] [address] documented as of this encounter Procedures Procedure Name Priority Date/Time Associated Diagnosis Comments COMPLETE BLOOD COUNT Routine 08/01/2024 5:00 AM EDT Essential (primary) hypertension Atherosclerotic heart disease of [place] coronary artery without angina pectoris Chronic diastolic (congestive) heart failure (CMS/HCC V24, CMS/HCC V28) Displaced intertrochanteric fracture of right femur, subsequent encounter for closed fracture with routine healing COMPREHENSIVE METABOLIC PANEL Routine 08/01/2024 5:00 AM EDT Essential (primary) hypertension Atherosclerotic heart disease of [place] coronary artery without angina pectoris Chronic diastolic (congestive) heart failure (CMS/HCC V24, CMS/HCC V28) Displaced intertrochanteric fracture of right femur, subsequent encounter for closed fracture with routine healing documented in this encounter Results * (ABNORMAL) Comprehensive metabolic panel (08/01/2024 5:00 AM EDT) Sodium 139 133 - 145 mmol/L LAB CHEMISTRY METHOD 08/01/2024 1:09 PM [facility] Potassium 4.6 3.5 - 5.5 mmol/L LAB CHEMISTRY METHOD 08/01/2024 1:09 PM [facility] Chloride 106 96 - 110 mmol/L LAB CHEMISTRY METHOD 08/01/2024 1:09 PM [facility] CO2 25 21 - 32 mmol/L LAB CHEMISTRY METHOD 08/01/2024 1:09 PM [facility] Anion Gap 8 3 - 11 LAB CHEMISTRY METHOD 08/01/2024 1:09 PM [facility] Glucose 84 70 - 100 mg/dL LAB CHEMISTRY METHOD 08/01/2024 1:09 PM [facility] BUN 13 5 - 25 mg/dL LAB CHEMISTRY METHOD 08/01/2024 1:09 PM [facility] Creatinine 0.86 0.70 - 1.30 mg/dL LAB CHEMISTRY METHOD 08/01/2024 1:09 PM [facility] eGFR 86 >=60 mL/min/1. 73m2 LAB CHEMISTRY METHOD 08/01/2024 1:09 PM [facility] Comment:Calculation based on the Chronic Kidney Disease Epidemiology Collaboration (CKD-EPI) equation refit without adjustment for race. BUN/Creatinine Ratio 15.1 LAB CHEMISTRY METHOD 08/01/2024 1:09 PM [facility] Calcium 8.7 8.5 - 10.5 mg/dL LAB CHEMISTRY METHOD 08/01/2024 1:09 PM [facility] AST (SGOT) 16 10 - 42 unit/L LAB CHEMISTRY METHOD 08/01/2024 1:09 PM [facility] ALT (SGPT) 19 10 - 60 unit/L LAB CHEMISTRY METHOD 08/01/2024 1:09 PM [facility] Alkaline Phosphatase 168(H) 42 - 121 unit/L LAB CHEMISTRY METHOD 08/01/2024 1:09 PM [facility] Total Protein 6.4 6.0 - 8.0 g/dL LAB CHEMISTRY METHOD 08/01/2024 1:09 PM [facility] Albumin 3.2 3.2 - 5.0 g/dL LAB CHEMISTRY METHOD 08/01/2024 1:09 PM [facility] Total Bilirubin 0.6 0.0 - 1.4 mg/dL LAB CHEMISTRY METHOD 08/01/2024 1:09 PM [facility] Blood Venous blood specimen / Unknown 08/01/2024 5:00 AM EDT 08/01/2024 11:30 AM EDT us Salty Barber MD LAB BLOOD ORDERABLES Final Resu lt [facility] [address] [place] [address], [place] [phone] * (ABNORMAL) Complete blood count (08/01/2024 5:00 AM EDT) [facility] Signature WBC 4.4(L) 4.8 - 10.8 K/mcL LAB HEMETOLOGY METHOD 08/01/2024 1:03 PM [facility] RBC 3.20(L) 4.50 - 5.50 M/mcL LAB HEMETOLOGY METHOD 08/01/2024 1:03 PM [facility] Hemoglobin 9.4(L) 13.5 - 17.5 g/dL LAB HEMETOLOGY METHOD 08/01/2024 1:03 PM [facility] Hematocrit 31.7(L) 42.0 - 54.0 % LAB HEMETOLOGY METHOD 08/01/2024 1:03 PM [facility] MCV 99.7(H) 79.0 - 98.0 FL LAB HEMETOLOGY METHOD 08/01/2024 1:03 PM [facility] MCH 29.6 27.0 - 32.0 pcg LAB HEMETOLOGY METHOD 08/01/2024 1:03 PM [facility] MCHC 29.7(L) 32.0 - 37.0 g/dL LAB HEMETOLOGY METHOD 08/01/2024 1:03 PM [facility] RDW 18.1(H) 11.0 - 15.0 % LAB HEMETOLOGY METHOD 08/01/2024 1:03 PM [facility] Platelets 316 130 - 400 K/mcL LAB HEMETOLOGY METHOD 08/01/2024 1:03 PM [facility] MPV 9.7 7.0 - 11.0 FL LAB HEMETOLOGY METHOD 08/01/2024 1:03 PM [facility] NRBC 0.0 <1.0 % LAB HEMETOLOGY METHOD 08/01/2024 1:03 PM EDT [facility] NRBC Absolute 0.00 <0.10 K/mcL LAB HEMETOLOGY METHOD 08/01/2024 1:03 PM EDT [facility] Blood Venous blood specimen / Unknown 08/01/2024 5:00 AM EDT 08/01/2024 11:30 AM EDT us Salty Barber MD LAB BLOOD ORDERABLES Final Resu lt [facility] [address] [place] [address], documented in this encounter Visit Diagnoses Diagnosis Essential (primary) hypertension Unspecified essential hypertension Atherosclerotic heart disease of [place] coronary artery without angina pectoris Chronic diastolic (congestive) heart failure (CMS/HCC V24, CMS/HCC V28) Displaced intertrochanteric fracture of right femur, subsequent encounter for closed fracture with routine healing documented in this encounter Care Teams Communication Spec Relationship Specialty Start Date End Date Leslie Gamble MD [address] [place] [address] PCP - General 09/11/10 documented as of this encounter
[2024-08-26 12:26] LABS: Prostate Specific Antigen 5.97 ng/mL (<0.05-4.0)
[2024-08-26 13:18] LABS: Ferritin 86 ng/mL (20-250); TSH reflex Free T4 0.52 uIU/mL (0.32-4.0); Vitamin D 25-OH Total 27.2 ng/mL (>30)
[2024-08-26 13:43] LABS: Anion Gap 10 (12-20)
[2024-08-26 13:48] LABS: Alanine Aminotransferase 17 U/L (0-40); Albumin Level 3.9 g/dL (3.5-5.0); Alkaline Phosphatase 146 U/L (39-117); Aspartate Amino Transferase 25 U/L (5-37); Bilirubin Total 0.4 mg/dL (0.0-1.0); Blood Urea Nitrogen 17 mg/dL (9-16); Calcium 9.3 mg/dL (8.4-10.2); Carbon Dioxide 29 mmol/L (22-29); Chloride 108 mmol/L (96-108); Cholesterol 105 mg/dL (<200); Estimated Glomerular Filt Rate > 60; Glucose Random 87 mg/dL (60-115); HDL Cholesterol 45 mg/dL (>40); Iron 33 mcg/dL (45-160); LDL Cholesterol Calculated 45 mg/dL (<100); Percent Iron Saturation 15 % (15-50); Potassium 4.3 mmol/L (3.3-5.1); Sodium 143 mmol/L (135-145); Total Iron Binding Capacity 216 mcg/dL (228-428); Triglycerides 75 mg/dL (<150); Unsaturated Iron Binding 183 ug/dL
== END 2024-08-26 10:52 | disposition home or self-care (01) ==
LOC: HO.HVNA 10:51
PROVIDERS: Visit Provider Internal Medicine
DX: D64.9 Anemia, unspecified (principal); I48.91 Unspecified atrial fibrillation; R29.6 Repeated falls; Z12.5 Encounter for screening for malignant neoplasm of prostate
CPT/HCPCS: 36415; 80053; 80061; 81003; 82306; 82728; 83036; 83540; 84153; 84443; 85025; 87086

== ENCOUNTER 2024-08-29 08:58 | Outpatient (REF) | payer MEDICARE, OTHER, SELFPAY ==
--- NOTE | ~2024-08-29 | XR_ITS ---
CLINICAL HISTORY: S72.90XA - Unspecified fracture of unspecified femur, initial encounter ... 2 view right femur Comparison: DX/SR - XR FEMUR RT 2V - 07/29/24 11:33 EDT Findings: Intramedullary evelyn and intertrochanteric fixation screw are seen transfixing a comminuted intertrochanteric fracture. There is increased heterotopic ossification about the fracture since prior exam. There is no evidence of hardware failure or loosening. Multiple surgical clips are seen in the pelvis. Arteriosclerosis is present. IMPRESSION: 1. Internal fixation of an intertrochanteric fracture with no evidence of hardware failure or loosening. There is increased heterotopic ossification about the fracture since prior exam. This document has been electronically signed by: Kristian Mckeon on 08/30/2024 09:32:50
--- OUTSIDE RECORDS SUMMARY | 2024-08-30 09:35 | XMS_ITS | Encounter Summary ---
Author Organization [employer] Address [address] [place] [address] Care Team Providers Care Assistant Public Defender Name Role Phone Leslie Gamlbe MD Primary Care Provider [phone] Encounter Details Date Type Department Care Team (Latest Contact Info) Description 07/31/2024 Lab Requisition [facility] - Main Lab [address] [facility] [place] [address] Salty Barber MD [address] [place] [phone] Essential (primary) hypertension; Atherosclerotic heart disease of rincon coronary artery without angina pectoris; Chronic diastolic [...] Description 02/02/2025 2:30 PM EST Office Visit [facility] [address] [facility] [address] [place] [address] Bri Jackson MD [address] [place] [address] documented as of this encounter Procedures Procedure Name Priority Date/Time Associated Diagnosis Comments COMPLETE BLOOD COUNT Routine 08/01/2024 5:00 AM EDT Essential (primary) hypertension Atherosclerotic heart disease of rincon coronary artery without angina pectoris Chronic diastolic (congestive) heart failure (CMS/HCC V24, CMS/HCC V28) Displaced intertrochanteric fracture of right femur, subsequent encounter for closed fracture with routine healing COMPREHENSIVE METABOLIC PANEL Routine 08/01/2024 5:00 AM EDT Essential (primary) hypertension Atherosclerotic heart disease of rincon coronary artery without angina pectoris Chronic diastolic (congestive) heart failure (CMS/HCC V24, CMS/HCC V28) Displaced intertrochanteric fracture of right femur, subsequent encounter for closed fracture with routine healing documented in this encounter Results * (ABNORMAL) Comprehensive metabolic panel (08/01/2024 5:00 AM EDT) Sodium 139 133 - 145 mmol/L LAB CHEMISTRY METHOD 08/01/2024 1:09 PM [facility] Potassium 4.6 3.5 - 5.5 mmol/L LAB CHEMISTRY METHOD 08/01/2024 1:09 PM [facility] Chloride 106 96 - 110 mmol/L LAB CHEMISTRY METHOD 08/01/2024 1:09 PM [facility] CO2 25 21 - 32 mmol/L LAB CHEMISTRY METHOD 08/01/2024 1:09 PM [facility] Anion Gap 8 3 - 11 LAB CHEMISTRY METHOD 08/01/2024 1:09 PM [facility] Glucose 84 70 - 100 mg/dL LAB CHEMISTRY METHOD 08/01/2024 1:09 PM [facility] BUN 13 5 - 25 mg/dL LAB CHEMISTRY METHOD 08/01/2024 1:09 PM [facility] Creatinine 0.86 0.70 - 1.30 mg/dL LAB CHEMISTRY METHOD 08/01/2024 1:09 PM [facility] eGFR 86 >=60 mL/min/1. 73m2 LAB CHEMISTRY METHOD 08/01/2024 1:09 PM [facility] Comment:Calculation based on the Chronic Kidney Disease Epidemiology Collaboration (CKD-EPI) equation refit without adjustment for race. BUN/Creatinine Ratio 15.1 LAB CHEMISTRY METHOD 08/01/2024 1:09 PM [facility] Calcium 8.7 8.5 - 10.5 mg/dL LAB CHEMISTRY METHOD 08/01/2024 1:09 PM [facility] AST (SGOT) 16 10 - 42 unit/L LAB CHEMISTRY METHOD 08/01/2024 1:09 PM [facility] ALT (SGPT) 19 10 - 60 unit/L LAB CHEMISTRY METHOD 08/01/2024 1:09 PM [facility] Alkaline Phosphatase 168(H) 42 - 121 unit/L LAB CHEMISTRY METHOD 08/01/2024 1:09 PM [facility] Total Protein 6.4 6.0 - 8.0 g/dL LAB CHEMISTRY METHOD 08/01/2024 1:09 PM [facility] Albumin 3.2 3.2 - 5.0 g/dL LAB CHEMISTRY METHOD 08/01/2024 1:09 PM [facility] Total Bilirubin 0.6 0.0 - 1.4 mg/dL LAB CHEMISTRY METHOD 08/01/2024 1:09 PM [facility] Blood Venous blood specimen / Unknown 08/01/2024 5:00 AM EDT 08/01/2024 11:30 AM EDT us Salty Barber MD LAB BLOOD ORDERABLES Final Resu lt [facility] [address] [place] [address], [place] [phone] * (ABNORMAL) Complete blood count (08/01/2024 5:00 AM EDT) [facility] Signature WBC 4.4(L) 4.8 - 10.8 K/mcL LAB HEMETOLOGY METHOD 08/01/2024 1:03 PM [facility] RBC 3.20(L) 4.50 - 5.50 M/mcL LAB HEMETOLOGY METHOD 08/01/2024 1:03 PM [facility] Hemoglobin 9.4(L) 13.5 - 17.5 g/dL LAB HEMETOLOGY METHOD 08/01/2024 1:03 PM [facility] Hematocrit 31.7(L) 42.0 - 54.0 % LAB HEMETOLOGY METHOD 08/01/2024 1:03 PM [facility] MCV 99.7(H) 79.0 - 98.0 FL LAB HEMETOLOGY METHOD 08/01/2024 1:03 PM [facility] MCH 29.6 27.0 - 32.0 pcg LAB HEMETOLOGY METHOD 08/01/2024 1:03 PM [facility] MCHC 29.7(L) 32.0 - 37.0 g/dL LAB HEMETOLOGY METHOD 08/01/2024 1:03 PM [facility] RDW 18.1(H) 11.0 - 15.0 % LAB HEMETOLOGY METHOD 08/01/2024 1:03 PM [facility] Platelets 316 130 - 400 K/mcL LAB HEMETOLOGY METHOD 08/01/2024 1:03 PM [facility] MPV 9.7 7.0 - 11.0 FL LAB HEMETOLOGY METHOD 08/01/2024 1:03 PM [facility] NRBC 0.0 <1.0 % LAB HEMETOLOGY METHOD 08/01/2024 1:03 PM EDT [facility] NRBC Absolute 0.00 <0.10 K/mcL LAB HEMETOLOGY METHOD 08/01/2024 1:03 PM EDT [facility] Blood Venous blood specimen / Unknown 08/01/2024 5:00 AM EDT 08/01/2024 11:30 AM EDT us Salty Barber MD LAB BLOOD ORDERABLES Final Resu lt [facility] [address] [place] [address], documented in this encounter Visit Diagnoses Diagnosis Essential (primary) hypertension Unspecified essential hypertension Atherosclerotic heart disease of 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
== END 2024-08-29 08:59 | disposition home or self-care (01) ==
LOC: HO.HOSX 08:58
PROVIDERS: Visit Provider Physician Assistant
DX: S72.001A Fracture of unspecified part of neck of right femur, initial encounter for closed fracture (principal)
CPT/HCPCS: 73552; 99212

== ENCOUNTER 2024-08-29 14:01 | Outpatient (AMB) | payer MEDICARE, OTHER, SELFPAY ==
[2024-08-29 14:11] VITALS: BMI 21.5
--- NOTE | 2024-08-29 14:11 | A.OFFVIS_ITS ---
Vital Signs 08/29/24 14:11 Height 5 ft 10 in Weight 150 lb BMI 21.5 Intake Visit Reasons: PO-Right hip IM Nail 07/11 with RIANA6 WK Intake Note: Tr is an 84 year old male presents post-operatively after undergoing a right hip IMN, DOS: 07/11/[address] Peace. At his last visit he was instructed to continue working with physical therapy and follow up in 4 weeks. Today patient reports having pain most of the time, states pain is okay while laying down. He continues to work with physical therapy. Allergies No Known Allergies [No Known Allergies*] Allergy (Verified 08/29/24 14:20) HPI HPI PO-Right hip IM Nail 07/11 with [email or web address] WK: Details: 84 yo male returns to the office today 6 wk f/u Rt hip IMN 07/11/[address] Peace, He has concerns he has difficulty with lifting the right leg and has knee pain. No new injuries. FORMERLY [facility], [facility] Medical History Hypertension Coronary artery disease Psoriatic arthritis Afib Diastolic heart failure Social History Household Members: None Housing: Other Housing Other:: independant living facility Do you presently have visiting nurse or other home services: No Unable to assess alcohol history related to: Unable to respond Patient Tobacco Use Status: Former Tobacco user Tobacco use type: Cigarette Years Smoked: 20 e-Cigarette/Vaping Use: Former Use Second Hand Smoke Exposure: No service: No Review of Systems Const All systems reviewed & are unremarkable except as noted in HPI and below Physical Exam Vital Signs: BMI result Body Mass Index 21.5 Extrem Other: Right hip incision well healed. No erythema. No swelling. He has full range of motion of the hip without pain. Calf supple nontender neurovascularly intact. Results Reviewed Results Reviewed: X-rays of the right hip obtained in the office today and reviewed by me show intact IM nail with stable reduction of fracture. Assessment & Plan Assessment & Plan (1) Closed fracture of right hip: Code(s): S72.001A - Fracture of unspecified part of neck of right femur, initial encounter for closed fracture Category: Medical Plan: Reassurance given to the patient his daughter to he is healing well and mild discomfort and weakness can be expected 6 weeks postop. I encouraged him to continue working with physical therapy on strengthening and ADLs. I did give him a prescription for Celebrex to see if this will help ease up some of his discomfort. I encouraged continue with activities as tolerated and he will see me back in 6 weeks with x-rays sooner if needed. Orders: Orders XR femur RT 2V Today S72.90XA - Unspecified fracture of unspecified femur, initial encounter for closed fracture Medications: New celecoxib (Celebrex) 200 mg PO BID 60 caps 3RF 30 days Coding Level of Care Code Global (77462) Diagnoses Closed fracture of right hip S72.001A
--- OUTSIDE RECORDS SUMMARY | 2024-08-29 15:57 | XMS_ITS | Encounter Summary ---
Author Organization [employer] Address [address] [place] [address] Care Team Providers Care Marble Installation Helper Name Role Phone Leslie Gamble MD Primary Care Provider [phone] Encounter Details Date Type Department Care Team (Latest Contact Info) Description 07/31/2024 Lab Requisition [facility] - Main Lab 299 [facility] [place] [address] Salty Barber MD [address] [place] [phone] Essential (primary) hypertension; Atherosclerotic heart disease of [place] coronary artery without angina pectoris; Chronic diastolic [...] 2:30 PM EST Office Visit [facility] - [facility] [address] [facility] [address] [place] [address] Bri Jackson MD [address] [place] [address] documented as of this encounter Procedures Procedure Name Priority Date/Time Associated Diagnosis Comments COMPLETE BLOOD COUNT Routine 08/01/2024 5:00 AM EDT Essential (primary) hypertension Atherosclerotic heart disease of [place] coronary artery without angina pectoris Chronic diastolic (congestive) heart failure (CMS/HCC V24, CMS/HCC V28) Displaced intertrochanteric fracture of right femur, subsequent encounter for closed fracture with routine healing COMPREHENSIVE METABOLIC PANEL Routine 08/01/2024 5:00 AM EDT Essential (primary) hypertension Atherosclerotic heart disease of [place] coronary artery without angina pectoris Chronic diastolic (congestive) heart failure (CMS/HCC V24, CMS/HCC V28) Displaced intertrochanteric fracture of right femur, subsequent encounter for closed fracture with routine healing documented in this encounter Results * (ABNORMAL) Comprehensive metabolic panel (08/01/2024 5:00 AM EDT) Sodium 139 133 - 145 mmol/L LAB CHEMISTRY METHOD 08/01/2024 1:09 PM [facility] Potassium 4.6 3.5 - 5.5 mmol/L LAB CHEMISTRY METHOD 08/01/2024 1:09 PM [facility] Chloride 106 96 - 110 mmol/L LAB CHEMISTRY METHOD 08/01/2024 1:09 PM [facility] CO2 25 21 - 32 mmol/L LAB CHEMISTRY METHOD 08/01/2024 1:09 PM [facility] Anion Gap 8 3 - 11 LAB CHEMISTRY METHOD 08/01/2024 1:09 PM [facility] Glucose 84 70 - 100 mg/dL LAB CHEMISTRY METHOD 08/01/2024 1:09 PM [facility] BUN 13 5 - 25 mg/dL LAB CHEMISTRY METHOD 08/01/2024 1:09 PM [facility] Creatinine 0.86 0.70 - 1.30 mg/dL LAB CHEMISTRY METHOD 08/01/2024 1:09 PM [facility] eGFR 86 >=60 mL/min/1. 73m2 LAB CHEMISTRY METHOD 08/01/2024 1:09 PM [facility] Comment:Calculation based on the Chronic Kidney Disease Epidemiology Collaboration (CKD-EPI) equation refit without adjustment for race. BUN/Creatinine Ratio 15.1 LAB CHEMISTRY METHOD 08/01/2024 1:09 PM [facility] Calcium 8.7 8.5 - 10.5 mg/dL LAB CHEMISTRY METHOD 08/01/2024 1:09 PM [facility] AST (SGOT) 16 10 - 42 unit/L LAB CHEMISTRY METHOD 08/01/2024 1:09 PM [facility] ALT (SGPT) 19 10 - 60 unit/L LAB CHEMISTRY METHOD 08/01/2024 1:09 PM [facility] Alkaline Phosphatase 168(H) 42 - 121 unit/L LAB CHEMISTRY METHOD 08/01/2024 1:09 PM [facility] Total Protein 6.4 6.0 - 8.0 g/dL LAB CHEMISTRY METHOD 08/01/2024 1:09 PM [facility] Albumin 3.2 3.2 - 5.0 g/dL LAB CHEMISTRY METHOD 08/01/2024 1:09 PM [facility] Total Bilirubin 0.6 0.0 - 1.4 mg/dL LAB CHEMISTRY METHOD 08/01/2024 1:09 PM [facility] Blood Venous blood specimen / Unknown 08/01/2024 5:00 AM EDT 08/01/2024 11:30 AM EDT us Salty Barber MD LAB BLOOD ORDERABLES Final Resu lt [facility] [address] [place] [address], [place] [phone] * (ABNORMAL) Complete blood count (08/01/2024 5:00 AM EDT) [facility] Signature WBC 4.4(L) 4.8 - 10.8 K/mcL LAB HEMETOLOGY METHOD 08/01/2024 1:03 PM [facility] RBC 3.20(L) 4.50 - 5.50 M/mcL LAB HEMETOLOGY METHOD 08/01/2024 1:03 PM [facility] Hemoglobin 9.4(L) 13.5 - 17.5 g/dL LAB HEMETOLOGY METHOD 08/01/2024 1:03 PM [facility] Hematocrit 31.7(L) 42.0 - 54.0 % LAB HEMETOLOGY METHOD 08/01/2024 1:03 PM [facility] MCV 99.7(H) 79.0 - 98.0 FL LAB HEMETOLOGY METHOD 08/01/2024 1:03 PM [facility] MCH 29.6 27.0 - 32.0 pcg LAB HEMETOLOGY METHOD 08/01/2024 1:03 PM [facility] MCHC 29.7(L) 32.0 - 37.0 g/dL LAB HEMETOLOGY METHOD 08/01/2024 1:03 PM [facility] RDW 18.1(H) 11.0 - 15.0 % LAB HEMETOLOGY METHOD 08/01/2024 1:03 PM [facility] Platelets 316 130 - 400 K/mcL LAB HEMETOLOGY METHOD 08/01/2024 1:03 PM [facility] MPV 9.7 7.0 - 11.0 FL LAB HEMETOLOGY METHOD 08/01/2024 1:03 PM [facility] NRBC 0.0 <1.0 [...] Resu lt [facility] [address] [place] [address], documented in this encounter Visit Diagnoses Diagnosis Essential (primary) hypertension Unspecified essential hypertension Atherosclerotic heart disease of [place] coronary artery without angina pectoris Chronic diastolic (congestive) heart failure (CMS/HCC V24, CMS/HCC V28) Displaced intertrochanteric fracture of right femur, subsequent encounter for closed fracture with routine healing documented in this encounter Care Teams Marble Installation Helper Relationship Specialty Start Date End Date Leslie Gamble MD [address] [place] [address] PCP - General 09/11/10 documented as of this encounter
== END 2024-08-29 15:08 | disposition home or self-care (01) ==
LOC: HO.HOS 14:02
PROVIDERS: PCP Internal Medicine; Visit Provider Physician Assistant
DX: S72.001A Fracture of unspecified part of neck of right femur, initial encounter for closed fracture (principal)
CPT/HCPCS: 99024

== ENCOUNTER → 2024-08-29 14:03 | Outpatient (BNV) | payer MEDICARE, OTHER, SELFPAY | PROVIDERS: Visit Provider Radiology Vascular & Interventional Radiology | DX: S72.141A Displaced intertrochanteric fracture of right femur, initial encounter for closed fracture (principal) | CPT/HCPCS: 73552 ==

== ENCOUNTER 2024-10-07 16:15 | Emergency (ER) | payer MEDICARE, OTHER, SELFPAY ==
[2024-10-07] VITALS (9 sets, daily range): BP systolic 130–208; BP diastolic 60–84; PULSE 59–67; RESP 16–22; TEMP 36.6–36.7; O2SAT 94–96; BMI 23.2
--- NOTE | ~2024-10-07 | CT_ITS ---
CLINICAL HISTORY: HTN, confusion CT head without contrast. COMPARISON: CT head dated 07/10/24 at 20:30 EDT FINDINGS: The visualized paranasal sinuses are clear. The mastoid air cells are clear. No calvarial fracture. Atherosclerotic intracranial vasculature. No evidence for mass or mass effect. No intracranial hemorrhage or abnormal extra-axial fluid collection. Basal ganglia mineralization present. No CT evidence of acute infarct. The ventricles are proportional with the degree of moderate global cerebral volume loss without evidence of hydrocephalus. Basilar cisterns are patent. There are periventricular areas of low attenuation compatible with mild white matter small vessel disease. Posterior fossa appears unremarkable. IMPRESSION: 1. No acute intracranial findings. This document has been electronically signed by: Ajay Chacko MD on 10/07/2024 19:44:38
--- NOTE | ~2024-10-07 | CT_ITS ---
CLINICAL HISTORY: flank pain abd pain CT abdomen and pelvis without IV contrast. COMPARISON: CT abdomen and pelvis dated 07/10/24 at 20:33 EDT FINDINGS: Findings of the lung bases are reported on CT of the chest performed at the same time. Non-contrast appearance of the liver, spleen and pancreas are without evidence of injury. Cholelithiasis present within the gallbladder. Normal adrenal glands. Non-contrast appearance of the kidneys are without evidence of injury. No hydronephrosis. Left renal cystic lesion measuring 5.1 cm. No hydronephrosis. No free intraperitoneal fluid or air. No free intraperitoneal fluid or air. No bowel obstruction. Moderate colonic stool burden. Normal appendix. No mesenteric or retroperitoneal lymphadenopathy. No evidence of abdominal aorta injury. Moderate aortoiliac atherosclerotic vascular calcifications. No evidence of urinary bladder injury. No free fluid present in the pelvis. Surgical clips present along the prostate bed. Anatomic alignment of comminuted intertrochanteric fracture of the right femoral neck with internal fixation hardware partially visualized. No evidence of hardware complication in the visualized portions. Right femoral head is appropriately seated within the acetabulum. No evidence of injury to the proximal left femur. Visualized bones of the pelvis appear intact. No acute lower rib fracture identified. IMPRESSION: 1. No acute intrathoracic or pelvic findings. No evidence of solid organ injury. 2. Cholelithiasis. No stigmata of cholecystitis. 3. Anatomic alignment of comminuted internally fixated intertrochanteric fracture of the right femoral neck without evidence of hardware complication. This document has been electronically signed by: Ajay Chacko MD on 10/07/2024 20:04:50
--- NOTE | ~2024-10-07 | CT_ITS ---
CLINICAL HISTORY: back pain CT lumbar spine without contrast. COMPARISON: CT abdomen and pelvis dated 10/07/24 at 18:10 EDT FINDINGS: Mild levocurvature of the mid lumbar spine. Grade 1 anterolisthesis of L5 on S1, degenerative. Vertebral body heights are maintained. Retroperitoneal and pelvic findings are reported on CT of the abdomen and pelvis performed at the same time. L5-S1: Mild posterior disc bulge. No significant neural foraminal narrowing. L4-L5: Mild posterior disc bulge mild right neural foraminal narrowing. L3-L4: Anterior marginal osteophytes. No significant neural foraminal narrowing. L2-L3: Anterior marginal osteophytes. Mild right foraminal disc protrusion. No significant neural foraminal narrowing. L1-L2: Anterior marginal osteophytes. No significant neural foraminal narrowing. IMPRESSION: 1. No acute osseous or alignment abnormality of the lumbar spine. 2. Grade 1 anterolisthesis of L5 on S1, degenerative. 3. Mild levocurvature of the mid lumbar spine. This document has been electronically signed by: Ajay Chacko MD on 10/07/2024 20:07:22
--- NOTE | ~2024-10-07 | CT_ITS ---
CLINICAL HISTORY: worsening back pain CT thoracic spine without contrast. COMPARISON: CT chest dated 02/12/19 at 11:40 EST FINDINGS: Prominent thoracic kyphosis. Stable chronic compression fracture of the T8 vertebral body with approximately 75 percent height loss. Interval development of the compression fracture of the T9 vertebral body with approximately 50 percent height loss. There is a small amount of prevertebral soft tissue edema present. Stable chronic compression fracture of the T6 vertebral body with approximately 30 percent height loss. Stable chronic wedge compression fracture of the T T11 vertebral body with approximately 50 percent height loss. Remaining vertebral body heights are maintained. Chronic healing fracture of the coracoid process on the right, similar to prior imaging although there has been interval resorption along the fracture margins. No evidence of bone bridging. Multiple healed posterior rib fracture deformities. Findings of the chest are described on CT of the chest performed at the same time. Small marginal osteophytes present throughout the mid to lower thoracic spine. IMPRESSION: 1. Age-indeterminate compression fracture of the T9 vertebral body with approximately 50 percent height loss, new since prior imaging. There is adjacent soft tissue edema. No retropulsion into the canal. 2. Stable compression fractures of the T6 and T11 vertebral bodies. T6 vertebral body fracture has mild retropulsion into the canal causing mild spinal canal stenosis at this level, unchanged. 3. Similar appearance of comminuted nonunited fracture of the coracoid process of the scapula on the right with resorption along the fracture margins. 4. Chronic posterior right rib fracture deformities bilaterally, similar to prior imaging. This document has been electronically signed by: Ajay Chacko MD on 10/07/2024 20:01:51
--- NOTE | ~2024-10-07 | CT_ITS ---
CLINICAL HISTORY: SOB, cough CT chest without IV contrast. COMPARISON: CT chest dated 02/12/19 at 11:40 EST FINDINGS: No pericardial effusion. Coronary artery calcifications and/or stents present within the LAD, RCA and circumflex. Aortic annular calcifications. Normal esophagus. Homogeneous subcarinal mass measuring 3.9 x 4.0 x 4.5 cm (series 4, image 33), stable since imaging performed 07/10/2024. Trace bilateral pleural effusions. Minimal atelectasis versus scarring along the right lung base. Trachea and central airways are clear. No significant bronchial wall thickening. No bronchiectasis. Right lower lobe 5 mm pulmonary nodule (series 4, image 39), not definitively seen on prior imaging. Right upper lobe fissural 5 mm pulmonary nodule (series 4, image 24), not definitively seen on prior imaging. Left upper lobe fissural 4 mm pulmonary nodule (series 4, image 18), new since prior imaging. Findings of the upper abdomen are reported on CT of the abdomen and pelvis performed at the same time. Age-indeterminate compression fracture of the T9 vertebral body with approximately 50 percent height loss, new since prior imaging. Small amount of adjacent prevertebral soft tissue edema present. Compression fracture of the T8 vertebral body with approximately 75 percent height loss, stable since prior imaging. There is mild retropulsion into the canal causing mild spinal canal stenosis at this level, similar to prior imaging. Chronic compression fracture of the T6 vertebral body with approximately 30 percent height loss, unchanged. Chronic nonunited fracture of the coracoid process of the scapula on the right, similar in location and appearance to prior imaging. Otherwise visualized bones of the shoulders appear intact. Sternum appears intact. Chronic healed fracture deformity of the posterior right 5th and 6th ribs. Chronic fracture deformity of the anterior right 6th rib. No acute right-sided rib fracture identified. Chronic healed fracture deformities of the posterior left 6th, 7th, 8th, 9th and 10th ribs. No acute left-sided rib fracture identified. IMPRESSION: 1. Age-indeterminate compression fracture of the T9 vertebral body with approximately 50 percent height loss, new since prior imaging dated 07/10/2024. Additional compression fractures of the T8 and T6 vertebral bodies appear stable from prior imaging 2. Chronic nonunited fracture of the coracoid process of the scapula on the right, similar to prior imaging although there has been resorption along the fracture margins. No evidence of healing. 3. Stable healed fracture deformities of the ribs bilaterally. 4. Bilateral pulmonary nodules measuring up to 5 mm. These were not definitively seen on prior imaging. Recommend short-term follow-up imaging in 3-6 months. 5. Homogeneous well-defined subcarinal mass measuring up to 4.5 cm, stable since prior imaging. Recommend correlation clinically. When compared with prior imaging lesion does not enhance. If no appropriate clinical history, consider MR for further characterization. 6. Coronary artery atherosclerosis. This document has been electronically signed by: Ajay Chacko MD on 10/07/2024 19:55:25
--- NOTE | 2024-10-07 16:31 | ED_ITS ---
HPI - General Adult General Chief complaint: Back Pain/Injury Stated complaint: back pain hx 2 days Time Seen by Provider: 10/07/24 16:31 Source: patient, family (patient's daughters) and EMS Mode of arrival: EMS Limitations: no limitations History of Present Illness ED Provider: Sophia Orona PA-C HPI narrative: Patient is an 84 year old assigned male at with a history of CAD s/p stent, prostate cancer s/p prostatectomy, atrial fib status post ablation, diastolic heart failure, hypertension (on carvedilol 12.5mg BID) presenting to the emergency department today with worsening back pain, a cough, and elevated blood pressure readings. Patient states that his back hurts but he is unable to specify what part of his back hurts. Patient's daughters at the bed side state that the patient injured his back in May of 2024, has had imaging that confirmed compression fractures in the back, but over the last 4 months the patient has largely not been complaining of pain or experiencing pain. However, over the last couple of days, he has been complaining of much worse pain and his blood pressure has been significantly elevated. Patient's daughters state that the patient has had a cough over the last 2 weeks that they would like evaluated as well. Patient's daughters state that they would like the patient to be evaluated for short term rehabilitation placement. Patient denies any dizziness, lightheadedness, blurry vision, double vision, loss of vision, chest pain, difficulty breathing, shortness of breath, or any other complaints at this time. Relieving factors: none Exacerbating factors: movement Related Data Home Medications ?Medication ?Instructions ?Recorded ?Confirmed aspirin 81 mg chewable tablet 81 mg PO DAILY 07/11/24 10/08/24 Held on 07/13/24. Instructions: Resume on 08/23/24. carvedilol phosphate 20 mg 20 mg PO DAILY 07/11/24 capsule,[id number] multiphase docusate sodium 100 mg capsule 100 mg PO BID 07/11/24 10/08/24 ketorolac 0.5 % eye drops 1 drp ophthalmic (eye) BID 0 07/11/24 10/08/24 secukinumab 150 mg/mL subcutaneous 150 mg subcut QMONT H 07/11/24 10/08/24 pen injector (Cosentyx Pen) ferrous sulfate 325 mg (65 mg 325 mg PO DAILY 07/29/24 10/08/24 iron) tablet atorvastatin 40 mg tablet 40 mg PO DAILY 08/29/2409/20 gabapentin 100 mg capsule 100 mg PO TID 08/29/2410/08 cholecalciferol (vitamin D3) 25 25 mcg PO DAILY 10/08/24 mcg (1,000 unit) tablet mirtazapine 7.5 mg tablet 7.5 mg PO BEDTIME 10/08/24 0 10/08/24 sennosides 8.6 mg tablet (Senokot) 8.6 mg PO BID 10/0810/08/24 Previous Rx's ?Medication ?Instructions ?Recorded celecoxib 200 mg capsule (Celebrex) 200 mg PO BID 30 d ays #60 caps 08/29/24 oxycodone 5 mg tablet 5 mg PO QID PRN severe pain (scale 10/10/24 score 7-10) #7 tabs Allergies Allergy/AdvReac Type Severity Reaction Status Date / Time No Known Allergies (No Known Allergy Verified 10/07/24 16:37 Allergies*) Review of Systems 2 Constitutional: Constitutional: Reports no additional constitutional complaints, Denies chills, Denies fever(s) and Denies night sweats Eyes: Eyes: Reports no additional eye complaints, Denies blurry vision, Denies change in vision, Denies diplopia, Denies eye discharge, Denies loss of vision and Denies eye pain ENT: Denies dizziness Cardiovascular: Cardiovascular: Reports no additional cardiovascular complaints, Denies chest pain, Denies lightheadedness, Denies Loss of Consciousness and Denies dyspnea Respiratory: Respiratory: Reports no additional respiratory complaints and Denies dyspnea Gastrointestinal: Gastrointestinal: Reports no additional gastrointestinal complaints, Denies abdominal pain, Denies melena, Denies hematochezia, Denies change in bowel habits and Denies change in stool character Genitourinary: Genitourinary: Reports no additional male genitourinary complaints, Denies hematuria, Denies oliguria, Denies difficulty urinating, Denies dysuria, Denies urinary frequency, Denies urinary hesitancy, Denies urinary incontinence and Denies urinary urgency Musculoskeletal: Musculoskeletal: Reports no additional musculoskeletal complaints, Reports back pain, Denies numbness and Denies tingling Neurologic: Denies dizziness, Denies loss of vision, Denies numbness and Denies tingling Psychiatric: Psychiatric: Reports no additional psychiatric complaints Endocrine: Endocrine: Reports no additional endocrine complaints Hematologic/Lymphatic: Hematologic/Lymphatic: Reports no additional hematologic/lymphatic complaints Allergic/Immunologic: Allergic/Immunologic: Reports no additional allergic/immunologic complaints PMFSH Past Medical History Attestation statement: The following information was validated with the patient. (all information validated with the patient's daughters) Source: old records reviewed, obtained from family (patient's daughters provided additional history and confirmed the history provided by the patient. ) and nursing notes reviewed Medical History Hypertension Coronary artery disease Psoriatic arthritis Afib Diastolic heart failure Social History Social History Household Members: None Housing: Other Housing Other:: independant living facility Do you presently have visiting nurse or other home services: No Unable to assess alcohol history related to: Unable to respond Patient Tobacco Use Status: Former Tobacco user Tobacco use type: Cigarette Years Smoked: 20 e-Cigarette/Vaping Use: Former Use Second Hand Smoke Exposure: No Advance Directives: No Advance Directives Information Provided: No service: No Physical Exam ED Vital Signs: Vital Signs - 24 hr 10/09/24 14:00 10/09/24 19:19 10/09/24 21:07 Temperature 97.6 F 97.8 F Pulse Rate 70 67 85 Respiratory Rate 17 15 Blood Pressure 189/89 H 138/71 132/78 Pulse Oximetry 92 95 Oxygen Delivery Method Room Air Room Air 10/10/24 02:17 10/10/24 05:34 10/10/24 09:55 Temperature 97.2 F 96.9 F Pulse Rate 60 60 60 Respiratory Rate 16 16 Blood Pressure 147/68 H 132/64 132/64 Pulse Oximetry 92 Oxygen Delivery Method Room Air BMI result Body Mass Index 23.2 Const General: cooperative, no acute distress, alert and awake Nutritional Appearance: well nourished Orientation/consciousness: patient oriented x3 HENMT Head: Yes normal to inspection and Yes atraumatic Ears: hearing grossly normal bilaterally and external ears normal General nose exam: Normal external nose present, no nasal discharge noted and no epistaxis Face and sinus: Yes normal facial exam, No abrasion and No laceration Mouth: Normal oral and palatal mucosa present, no drooling and no muffled voice Eyes General: appearance normal, both eyes and all related structures Periorbital: periorbital findings normal Eyelids: Yes eyelids normal Conjunctivae: conjunctivae normal Pupils: Equal, round and reactive pupils present EOM: EOMs intact bilaterally Neck Neck: Yes normal visual inspection, Yes full ROM and Yes no lymphadenopathy Resp Effort & Inspection: normal respiratory effort and able to speak in complete sentences Neuro General: patient oriented x3, moves all extremities and CN's II-XI intact bilaterally Cranial nerves: Yes Equal, round and reactive pupils present Cognition (Neuro): normal cognition Extrem General: Yes normal to inspection, Yes full ROM and Yes capillary refill normal Psych Appearance: grossly normal Mental Status: mental status grossly normal Affect: normal affect Attitude: cooperative Thought process: Normal thought process present Thought content: Normal thought content present Insight: Good insight present (Psych) Course Reevaluation(s) Reevaluation #1: 9:52 PM 10/07/2024 (Jostin COBIAN): The patient was signed out to this provider at shift change, in summary the patient is an 84-year-old male with history of right hip fracture in June of this year which resulted in chronic back pain, who presents to the ED for evaluation of 2 days of acute worsening of his chronic back pain which is worse with standing/sitting but improved with lying down. The patient denied any associated abdominal pain, GI/ changes, numbness, tingling, or other focal neurological deficit. The patient also has a history of hypertension, is hypertensive in the ED with elevated systolic but normal diastolic. The patient was signed out to this provider pending CT of the head, chest, abdomen, pelvis, thoracic spine, and lumbar spine. Care plan according to sign-out was follow up on CT imaging and hold for case management/physical therapy consultation. The patient's CT imaging has resulted. The patient's CT head shows no acute intracranial pathology. CT lumbar spine shows no acute fracture, there is grade 1 anterolisthesis of L5 on S1 which appears degenerative. CT abdomen and pelvis shows no acute intrathoracic or pelvic findings, no evidence of solid organ injury, there is cholelithiasis with no evidence of cholecystitis, right hip hardware appears uncomplicated. The patient's CT thoracic spine shows age-indeterminate compression fracture of the T9 vertebral body with 50% height loss which is new since prior imaging, thoracic spine CT report states comparison imaging is from 02/12/2019. Thoracic CT also shows stable previously documented compression fractures of T6 and T11 vertebral bodies which are unchanged. There are additional chronic and stable findings. The patient's CT chest read demonstrates the age-indeterminate compression fracture of T9 vertebral body with 50% height loss. The patient's CT chest reports comparison study was 02/12/2019, however in the impression the comparison is listed as 07/10/2024. Additionally the patient's CT chest reports compression fractures at T8 and T6 vertebral bodies which are unchanged from prior imaging rather than T11 and T6 as originally documented in the thoracic spine report. The clarification of comparison study as 07/10/2024 was not originally clear when patient is results were initially discussed with the patient's family. However after repeat review of the imaging results the patient's family were contacted via phone and advised of the likely new but nonacute T9 compression fracture new since July 10. Of note there is also soft tissue edema present adjacent to T9 documented on the thoracic spine CT impression but not the chest CT impression. Given the age indeterminate T9 compression fracture new since July 10, with adjacent soft tissue edema, it is likely this is more acute than chronic and may be the explanation for the patient's recent increase in back pain. The patient has received 4 mg IV morphine upon initial presentation, we will give an additional 4 mg of IV morphine as the patient reports his pain is not controlled when attempting to sit up, patient is only able to lie flat to relieve pain. Per discussion with the attending physician Dr. Dumas, we will attempt additional IV pain medication, if patient has no relief following multiple rounds of IV pain medication the patient will require admission for intractable back pain in the setting of a new compression fracture. 3:11 AM 10/08/2024 (Jostin COBIAN): Patient reportedly had improvement in pain following a 2nd dose of IV morphine. Patient has been able to get up and walk to the bathroom in overflow area. Did not endorse pain when transferred to overflow. Patient ordered for prn oxycodone and scheduled Tylenol. Also of note the patient's blood pressure has significantly improved following pain management. Patient will be held in case management observation status for PT and case management consultation. 10/08/2024 0924 Sophia Orona PA-C ----> Observation continues. Case management continues to follow. Time: 13:04 Date: 10/09/24 Provider: Betina Pyle CNP Patient in physician observation for case management needs. No acute events reported overnight.? No current issues or complaints. VS stable. Patient is pending placement at acute rehab facility. Will continue to monitor. Time: 13: Date: 10/10/24 Provider: MANGO Navarro Physician observation ended at 1312. Patient will be discharged to [facility] via BLS at 2:00 p.m.. Patient is on Cosentyx monthly, which is a 7000 dollar medication. They are unable to get the medication from family, and in his do week of October. Family is okay with holding this medication at the time. This medication will be held while in short-term rehab. Patient also will be discharged with a paper prescription for oxycodone. Medications Administered Generic Name Dose Route Start Last Admin Trade Name Tawandaq PRN Reason Stop Dose Admin Acetaminophen 975 mg 10/08/24 04:00 10/10/24 04:58 Acetaminophen 325 Mg Tablet PO Not Given Q8H LILLY Aspirin 81 mg 10/09/24 09:00 10/10/24 09:55 Aspirin 81 Mg Tab.Chew PO 81 mg DAILY LILLY Administration Atorvastatin Calcium 40 mg 10/09/24 09:00 10/10/24 09:55 Atorvastatin Calcium 40 Mg Tablet PO 40 mg DAILY LILLY Administration Carvedilol 6.25 mg 10/08/24 21:00 10/10/24 09:55 Carvedilol 6.25 Mg Tablet PO 6.25 mg BID LILLY Administration Celecoxib 200 mg 10/08/24 21:00 10/10/24 09:55 Celecoxib 200 Mg Capsule PO 200 mg BID LILLY Administration Docusate Sodium 100 mg 10/08/24 21:00 10/10/24 09:55 Docusate Sodium 100 Mg Capsule PO 100 mg BID LILLY Administration Ferrous Sulfate 324 mg 10/09/24 09:00 10/10/24 09:55 Ferrous Sulfate 324 Mg Tablet. PO 324 mg DAILY LILLY Administration Gabapentin 100 mg 10/08/24 15:00 10/10/24 09:55 Gabapentin 100 Mg Capsule PO 100 mg TID LILLY Administration Ketorolac Tromethamine 1 drop 10/08/24 21:00 10/10/24 09:55 Ketorolac Tromethamine 0.5% Op 5 Ml Drops EYE-BOTH 1 drop BID LILLY Administration Mirtazapine 7.5 mg 10/08/24 21:00 10/09/24 21:07 Mirtazapine 7.5 Mg Tablet PO 7.5 mg BEDTIME LILLY Administration Vitamin D 25 mcg 10/09/24 09:00 10/10/24 09:55 Cholecalciferol (Vitamin D3) 25 Mcg Tablet PO 25 mcg DAILY LILLY Administration Discontinued Medications Generic Name Dose Route Start Last Admin Trade Name Nadine PRN Reason Stop Dose Admin Carvedilol 12.5 mg 10/07/24 16:48 10/07/24 17:39 Carvedilol 12.5 Mg Tablet PO 10/07/24 16:49 12.5 mg ONCE ONE Administration Protocol Morphine Sulfate 4 mg 10/07/24 17:18 10/07/24 17:40 Morphine Sulfate 4 Mg/Ml Cartridge IVPUSH 10/07/24 17:19 4 mg ONCE ONE Administration Protocol Morphine Sulfate 4 mg 10/07/24 22:11 10/07/24 22:33 Morphine Sulfate 4 Mg/Ml Cartridge IVPUSH 10/07/24 22:12 4 mg ONCE ONE Administration Protocol Olanzapine 10 mg 10/08/24 20:59 10/08/24 21:42 Olanzapine 10 Mg Tablet PO 10/08/24 21:00 10 mg ONCE ONE Administration Ondansetron HCl 4 mg 10/07/24 17:18 10/07/24 17:40 Ondansetron Hcl 4 Mg/2 Ml Vial IVPUSH 10/07/24 17:19 4 mg ONCE ONE Administration Medical Decision Making Medical Decision Making MDM Narrative: Patient is an 84 year old assigned male at with a history of CAD s/p stent, prostate cancer s/p prostatectomy, atrial fib status post ablation, diastolic heart failure, hypertension (on carvedilol 12.5mg BID) presenting to the emergency department today with worsening back pain, a cough, and an elevated blood pressure readings. Patient's physical exam was largely unremarkable - however, the patient was somewhat confused and a poor historian. Patient's blood work was unremarkable and consistent with his previously performed laboratory testing here at [facility] [place]. Patient's EKG was unremarkable. Patient's CT head, lumbar spine, thoracic spine, and abdomen/pelvis are pending. Patient's clinical presentation is NOT consistent with hypertensive urgency or emergency. I explained my physical exam findings as well as all test results to the patient and the patient's daughters. I answered all questions asked by the patient and the patient's daughters. Patient as given PO Carvedilol for his hypertension while in the department as well as IV Morphine and Zofran for pain. I had an extensive conversation with the patient and his daughters surrounding expectations of this emergency department visit. I explained that it is unlikely I will find an absolute cause for the patient's elevated blood pressure however, I will treat the patient's symptoms, pain, and rule out any emergent process. I explained to the patient and his daughters that once all emergent causes for his pain and his elevated blood pressure are ruled out, the patient will be placed in observation with physical therapy and case management consultations placed for short term rehab evaluation. Patient and his daughters verbalized understanding and agreement with this treatment plan. Patient signed out to MANGO Swift pending imaging results. Differential Diagnosis Differential Diagnoses: The differential diagnosis associated with the presentation includes Compression fractures Acute on chronic back pain Elevated blood pressure Admission/Observation Consideration of admission/observation: Escalation of care including admission/observation considered Patient's disposition will be determined after imaging results and re- evaulation. Lab Data [facility] Lab Attestation statement: I reviewed the patient's lab results. My interpretation of these results are in the [facility] Rationale portion of this note. 10/07/24 16:56 10/07/24 16:56 Labs: Lab Results 10/07/24 10/07/24 Range/Units 16:56 17:53 WBC 7.1 (4.8-10.8) X10*3/uL RBC 3.70 L (4.60-5.80) X10*6/uL Hgb 10.5 L (14.0-18.0) g/dl Hct 34.5 L (42.0-52.0) % MCV 93.2 (80.0-98.0) fL MCH 28.4 (27.0-33.0) pg MCHC 30.4 L (31.0-36.0) g/dl RDW 14.6 (11.0-16.0) % Plt Count 249 (160-400) X10*3/uL MPV 9.6 (9.4-12.4) fL Immature Gran % (Auto) 0.4 (0.0-0.4) % Neut % (Auto) 69.8 (45-73) % Lymph % (Auto) 18.0 L (20-40) % Cook % (Auto) 5.9 (2-11) % Eos % (Auto) 5.1 H (0-4) % Baso % (Auto) 0.8 (0-2) % Lymph # (Auto) 1.3 (1.2-4.9) X10*3/uL Cook # (Auto) 0.4 (0.1-1.2) X10*3/uL Eos # (Auto) 0.4 (0.0-0.4) X10*3/uL Baso # (Auto) 0.1 (0.0-0.2) X10*3/uL Abs Immat Gran (auto) 0.03 (0.00-0.03) X10*3/uL Absolute Neuts (auto) 5.0 (2.0-8.3) x10*3/uL Absolute Nucleated RBC 0.000 (0.0-0.012) X10*3/uL Nucleated RBC % (auto) 0.0 (0.0-0.2) /100WBC PT 11.8 (10.9-12.4) SEC INR 1.0 (0.9-1.1) Sodium 143 (135-145) mmol/L Potassium 4.2 (3.3-5.1) mmol/L Chloride 111 H (96-108) mmol/L Carbon Dioxide 27 (22-29) mmol/L Anion Gap 9 L (12-20) BUN 19 H (9-16) mg/dL Creatinine 0.90 (0.5-1.4) mg/dL Estim Creat Clear Calc 58.1 Estimated GFR > 60 Random Glucose 103 (60-115) mg/dL Calcium 8.5 D (8.4-10.2) mg/dL Magnesium 2.2 (1.6-2.6) mg/dL Total Bilirubin 0.3 (0.0-1.0) mg/dL AST 37 (5-37) U/L ALT 25 (0-40) U/L Alkaline Phosphatase 119 H (39-117) U/L Troponin I High Sens 5.5 (<3.5-35.0) ng/L B-Natriuretic Peptide 170 H (<100) pg/mL Total Protein 6.4 L (6.5-8.0) g/dL Albumin 3.4 L (3.5-5.0) g/dL Influenza Type A (PCR) NEGATIVE (Negative) Influenza Type B (PCR) NEGATIVE (Negative) RSV RNA Qual (PCR) NEGATIVE (Negative) SARS-CoV-2 RNA (RT-PCR) NEGATIVE (Negative) Independent Interpretation I performed an independent interpretation of an: EKG Interpretation: I independently interpreted this EKG and am in agreement with the below findings: Vent. Rate: 62 BPM Atrial Rate: 62 BPM P-R Int: 212 ms QRS Dur: 134 ms QT Int: 442 ms P-R-T Axes: 32 -4 7 degrees QTcB Int: 448 ms Sinus rhythm with 1st degree A-V block Right bundle branch block When compared with ECG of 10-Jul-2024 21:08, No significant change was found DD/ 1713 Radiology Impression Discussion of test interpretation with radiology: I have reviewed the radiologist's reading. Independent Historian Clinical information obtained from an independent historian. History obtained from or confirmed by: EMS (EMS provided additional history and confirmed the history provided by the patient. ) and Other (Patient's daughters provided additional history and confirmed the history provided by the patient. ) External Record Review External record reviewed: Inpatient record Chronic Conditions Patient?s care impacted by: Hypertension Discharge Plan Discharge Clinical Impression: Elevated blood pressure reading Back pain Qualifiers: Back pain location: back pain in unspecified location Chronicity: unspecified B ack pain laterality: unspecified Qualified Code(s): M54.9 - Dorsalgia, unspecified Cough Qualifiers: Cough type: subacute Qualified Code(s): R05.2 - Subacute cough Instructions: Acute Low Back Pain (ED), Acute Cough (ED) Additional Instructions: Tr was seen in the emergency department an he did not meet medical necessity for admission. Please utilize resources provided to by the case management team. Please continue all at-home medications as prescribed. Cosentyx will be held while in short term rehab. Take oxycodone as needed for severe pain only. If any new or worsening symptoms occur including but not limited to worsening pain, changes in mentation, severe chest pain, shortness of breath, please seek emergent care. Prescriptions: New oxycodone 5 mg tablet 5 mg PO QID PRN (Reason: severe pain (scale score 7-10)) Qty: 7 0RF Rx Instructions: Partial Fill upon patient request. No Action carvedilol phosphate 20 mg capsule, ER multiphase 24 hr 20 mg PO DAILY ketorolac 0.5 % drops 1 drp ophthalmic (eye) BID Rx Instructions: bothe eyes docusate sodium 100 mg Capsule 100 mg PO BID aspirin 81 mg Tablet,Chewable 81 mg PO DAILY Cosentyx Pen 150 mg/mL pen injector 150 mg SUBCUT QMONTH Rx Instructions: family unsure of last dose as of now mirtazapine 7.5 mg tablet 7.5 mg PO BEDTIME sennosides [Senokot] 8.6 mg Tablet 8.6 mg PO BID cholecalciferol (vitamin D3) 25 mcg (1,000 unit) Tablet 25 mcg PO DAILY ferrous sulfate 325 mg (65 mg iron) tablet 325 mg PO DAILY gabapentin 100 mg capsule 100 mg PO TID atorvastatin 40 mg tablet 40 mg PO DAILY celecoxib [Celebrex] 200 mg capsule 200 mg PO BID 30 Days Qty: 60 3RF Referrals: Carole Garcia [Outside] Leslie Gamble MD [Primary Care Provider, Medical] Print Language: Chinese
--- NOTE | 2024-10-07 16:47 | ECG_ITS ---
Test Reason : HTN Blood Pressure : */* mmHG Vent. Rate : 62 BPM Atrial Rate : 62 BPM P-R Int : 212 ms QRS Dur : 134 ms QT Int : 442 ms P-R-T Axes : 32 -4 7 degrees QTcB Int : 448 ms Sinus rhythm with 1st degree A-V block Right bundle branch block Abnormal ECG When compared with ECG of 10-Jul-2024 21:08, No significant change was found Referred By: Sophia Orona Electronically Signed By: ORLIN BRANDON
[2024-10-07 17:00] LABS: MANUAL DIFF FLAG NO
[2024-10-07 17:02] LABS: Hematocrit 34.5 % (42.0-52.0); Hemoglobin 10.5 g/dl (14.0-18.0); Imm Gran Abs Auto 0.03 X10*3/uL (0.00-0.03); Imm Gran Pct Auto 0.4 % (0.0-0.4); Lymphocytes Absolute Auto 1.3 X10*3/uL (1.2-4.9); Mean Corpuscular HGB Conc 30.4 g/dl (31.0-36.0); Mean Corpuscular Hemoglobin 28.4 pg (27.0-33.0); Mean Corpuscular Volume 93.2 fL (80.0-98.0); NRBC Abs Auto 0.000 X10*3/uL (0.0-0.012); NRBC Pct Auto 0.0 /100WBC (0.0-0.2); Platelet Count 249 X10*3/uL (160-400); Red Blood Count 3.70 X10*6/uL (4.60-5.80); White Blood Count 7.1 X10*3/uL (4.8-10.8)
[2024-10-07 17:07] LABS: INTERNATIONAL NORM RATIO 1.0 (0.9-1.1); Prothrombin Time 11.8 SEC (10.9-12.4)
[2024-10-07 17:15] LABS: Alanine Aminotransferase 25 U/L (0-40); Albumin Level 3.4 g/dL (3.5-5.0); Alkaline Phosphatase 119 U/L (39-117); Anion Gap 9 (12-20); Aspartate Amino Transferase 37 U/L (5-37); Blood Urea Nitrogen 19 mg/dL (9-16); Calcium 8.5 mg/dL (8.4-10.2); Carbon Dioxide 27 mmol/L (22-29); Chloride 111 mmol/L (96-108); Creatinine Clr Calc Pharmacy 58.1; Estimated Glomerular Filt Rate > 60; Magnesium 2.2 mg/dL (1.6-2.6); Potassium 4.2 mmol/L (3.3-5.1); Sodium 143 mmol/L (135-145); Total Protein 6.4 g/dL (6.5-8.0)
[2024-10-07 17:22] LABS: Troponin-I High Sensitivity 5.5 ng/L (<3.5-35.0)
--- OUTSIDE RECORDS SUMMARY | 2024-10-07 17:31 | XMS_ITS | Patient Health Record ---
Author Organization [facility] Address [address] [place] [address] Care Team Providers Care Start Up Specialist Name Role Phone Francis Velasco MD Primary Care Provider Francis Whitehead Unavailable [phone] Leslie Gamble MD Unavailable Unavailable Allergies Allergen (clinical drug ingredient) Drug/Non Drug Allergy documented on EMR Reaction Allergy Type Onset Date Status sulfasalazine Azulfidine GI Drug Allergy Ac tive Reason For Referral No Information Medications Medication SIG (Take, Route, Frequency, Duration) Notes Start Date End Date Status Vitamin D Active Aspir-81 Active dilTIAZem HCl Active Folic Acid Active Ibuprofen Active Losartan Potassium A ctive Methotrexate Sodium 25 mg SQ Q week Active Multaq Active Problems Problem Type SNOMED Code ICD Code Onset Dates Problem Status W/U Status Risk Notes Problem Encounter for long-term (current) use of other high-risk medications (V58.69) Active confirmed Plan Of Treatment No Information Insurance Providers Payer Name Payer Address Payer Phone Subscriber Number Group Number Insured Name Patient Relationship to Insured Coverage Start Date Coverage End Date MEDICARE OF [place] [address] [place] [address] [id number] TERENCE KENNY Self - patient is the insured [facility] [employer] [address] [place] [phone] [id number] TERENCE KENNY Self - patient is the insured Medical (General) History Medical History History ICD Code Atrial fibrillation, paroxysmal HTN Asthma Renal cyst Multiple colonoscopies with Dr. Diop with previous colon polyps-most recent colonoscopy in 2011 was negative Psoriatic arthritis-followed by Dr. Velasco-on Methotrexate > 3 years and > 4 Gms--receives 25mg SC Q week. Denies ID,DM,CVA,renal disease Surgical History Surgery Date(Month/Year) Right thoractomy for the exc ision of a bronchogenic cyst [address] Stinson Rectal fistula Prostate cancer-radical pros tatectomy and pelvic lymphadenectomy by Dr. Tolliver--and [facility]
--- OUTSIDE RECORDS SUMMARY | 2024-10-07 17:31 | XMS_ITS | Patient Health Record ---
Author Organization [facility] Address [address] [place] [address] Care Team Providers Care Editing Intern Name Role Phone Leslie Gamble MD Primary Care Provider UnavailTalon Mcgovern Unavailable [phone] Luis Giraldo Unavailable [phone] Flor Chavez Unavailable [phone] Allergies No Known Allergies Reason For Referral No Information Medications Medication SIG (Take, Route, Frequency, Duration) Notes Start Date End Date Status Cosentyx Once a month Active Carvedilol Active Brilinta 90 MG 1 tablet Orally Twice a day Not-Taking Atorvastatin Calcium Active Aspir-81 Active Gemtesa Not-Taking Losartan Potassium 50 MG 1 tablet Orally Once a day; Duration: 30 day(s) on hold Not-Taking Furosemide 20 MG 1 tablet Orally Once a day; Duration: 30 day(s) Not-Taking Social History Tobacco Use: [...] Ordered Date Performed Result Body Sit e [id number]-[id number] NAIL, 6 OR MORE 02/10/2024 N/A Encounters Encounter Location Date Provider Diagnosis [address] [address] 11/03/2023 Luis Giraldo Tinea unguium B35.1 ; Tinea pedis B35.3 ; Xerosis cutis L85.3 ; Pain in left toe(s) M79.675 ; Pain in right toe(s) M79.674 ; Skin disease L98.9 ; Hallux valgus (acquired), 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 and AK (actinic keratosis) L57.0 [facility] [address] [place] [address] 02/10/2024 Flor Chavez Onychomycosis B35.1 ; Pain in right toe(s) M79.674 and Pain in left toe(s) M79.[address] [address] 07/25/2024 Talon Ceron Assessments Encounter Date Diagnosis (ICD Code) Assessment Notes Treatment Notes Treatment Clinical Notes Section Notes 11/03/2023 Tinea unguium (ICD-10 - B35.1) 11/03/2023 Tinea pedis (ICD-10 - B35.3) 02/10/2024 Pain in right toe(s) (ICD-10 - M79.674) 02/10/2024 Onychomycosis (ICD-10 - B35.1) 02/10/2024 Pain in left toe(s) (ICD-10 - M79.675) 11/03/2023 Xerosis cutis (ICD-10 - L85.3) 11/03/2023 Pain in left toe(s) (ICD-10 - M79.675) 11/03/2023 Pain in right toe(s) (ICD-10 - M79.674) 11/03/2023 Skin disease (ICD-10 - L98.9) 11/03/2023 Hallux valgus (acquired), left foot (ICD-10 - M20.12) 11/03/2023 AK (actinic keratosis) (ICD-10 - L57.0) Plan Of Treatment Pending Test Test Name Order Date X ray : Foot, left 3V 10/03/2022 [id number] NAIL, 6 OR MORE 02/10/2024 Insurance Providers Payer Name Payer Address Payer Phone Subscriber Number Group Number Insured Name Patient Relationship to Insured Coverage Start Date Coverage End Date Medicare National [employer] [address] [place] [address] [id number] Tr Lamb Self - patient is the insured [employer] [address] [place] [address] [id number] Tr Lamb Self - patient is the insured Medical (General) History Medical History History ICD Code Arthritis Back,Hip,and Knee pain Cancer Heart disease High blood pressure Lung disease Osteoporosis Psoriasis/eczema Measles Psoriatic arthritis Surgical History Surgery Date(Month/Year) prostatectomy 06/2004 Bronchogenic Cyst -Afib Post Op Retina Detachment 1994,2000 stent 02/2023
[2024-10-07 17:46] LABS: B Type Natriuretic Peptide 170 pg/mL (<100)
[2024-10-07 18:35] LABS: Resp Syncy Virus RNA Qual PCR NEGATIVE (Negative); SARS COV2 PCR INHOUSE NEGATIVE (Negative)
--- NOTE | 2024-10-07 19:00 | PC.NURSE ---
this rn assumed care of pt, pt resting in stretcher, no acute distress noted. family remains at bedside at this time. awaiting scan results
--- NOTE | 2024-10-07 22:34 | PC.NURSE ---
pt medicated per mar at this time and assisted with urinal, vss
--- NOTE | 2024-10-08 00:06 | PC.NURSE ---
Patient arrived to ED overflow from main ED at approximately 22:45. Patient seen at present for c/o ongoing back pain. Per chart review and discussion with this patient who is A&Ox4, the patient was BIB his daughter with request for PT/CM placement in STR in the stting of having had a fall back in June of this year and sustained back fxs. Imaging this visit shows ? of a new compression fx in the T9 region when compared to imaging in June. The pt has +dorsiflexion and plantarflexion and follows commands appropriately. Denies nunmbess/tingling for this marketing copywriter. +radial and dp/pt pulses, +cms. -edema. Pt recently medicated with morphine prior to arrival to this unit; pt offered no complaints of pain for this marketing copywriter on arrival and has since been observed resting in bed with even and unlabored respirations, in no appearent distress on rounding. Pt voids via urinal with staff assistance and denies issues with voiding. Call reeder within reach and educated on use. Bed alarm on and safety measures in place.
--- NOTE | 2024-10-08 01:09 | MHC.EDTECH ---
Assisted patient with Urinal stands 1 assist at bedside 400cc
[2024-10-08 04:09] VITALS: BP 148/82; PULSE 76; RESP 18; TEMP 36.3; O2SAT 96
[2024-10-08 07:45] VITALS: BP 185/88; PULSE 58; RESP 14; TEMP 36.4; O2SAT 95
--- NOTE | 2024-10-08 07:59 | PC.NURSE ---
assumed care of patient at 0700, patient expresses frustration to this RN about his son not being here, patient unable to provide phone number of son to call, attempted to call patient daughter kate, left . patient given breakfast tray states he does not want to eat rn.
--- NOTE | 2024-10-08 08:35 | PC.NURSE ---
ROMIE SON PHONE NUMBER [phone]
--- NOTE | 2024-10-08 08:36 | PC.NURSE ---
patient sat on edge of bed and ate partial breakfast. son at bedside, patient sat on edge of bed to use urinal, voided 200cc urine, now back in bed. alarm on
--- NOTE | 2024-10-08 09:58 | PC.NURSE ---
patient ambulated with walker and one standby assist to the bathroom, gait is steady. patient back in bed, bed alarm on. linens changed while in bathroom.
[2024-10-08 12:06] VITALS: BP 185/88; PULSE 58; O2SAT 95
--- NOTE | 2024-10-08 12:54 | MHC.CM.ED ---
Received case management consult overnight. Patient came to the ER due to back pain. Physical therapy eval completed. Rehab is recommended. Met with patient and sons, Mukesh and Jonah, in regards to discharge planning. Patient lives alone, ambulates with a walker and is active with [facility]. PCP verified. Copy of HCP verified to be on file. Patient denies having inpatient hospital stay in the past 30 days. Referral will be made to all 3 acute rehab facilities. Patient reports [facility] would be 1st choice. Referral made to all 3 acute rehab facilities. Continue to monitor for d/c needs.
--- NOTE | 2024-10-08 13:30 | PHA.MEDREC ---
Pharmacy Consult ? Medication Reconciliation RN has completed the medication reconciliation, [facility] reviewed.
[2024-10-08 13:42] VITALS: BP 158/75; PULSE 66; RESP 14; TEMP 36.6; O2SAT 93
--- NOTE | 2024-10-08 16:53 | PC.NURSE ---
pt's sonleft and mentioned that the pt has had some confusion, thinking he is at [facility] and not the hospital, son reported pt getting up quickly to leave and thaT it was unlike him, camera set up and bed alarm in place,pt has moved to get up a couple times with camera alarm, initially pt was agitated with this but quickly calmed, currently eating
[2024-10-08 21:44] VITALS: BP 190/91; PULSE 74
[2024-10-08 22:10] VITALS: RESP 18; TEMP 36.9; O2SAT 96
[2024-10-08] MEDS: Ketorolac Tromethamine 0.5% Op 5 ML DROPS 1 DROP EYE-BOTH (23:41)
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
[2024-10-09 08:01] VITALS: BP 158/80; PULSE 69; RESP 17; TEMP 36.7; O2SAT 96
--- NOTE | 2024-10-09 08:12 | PC.NURSE ---
PHONE NUMBERS Jack Mayorga [phone] lives closest Son Benny [phone] Son Jonah [phone] Daughter's numbers located in Contacts
[2024-10-09] MEDS: Ferrous Sulfate 324 MG TABLET.DR PO (09:05)
[2024-10-09] MEDS: Ketorolac Tromethamine 0.5% Op 5 ML DROPS 1 DROP EYE-BOTH ×2 (09:13→21:07)
--- NOTE | 2024-10-09 13:41 | MHC.CM.ED ---
Addendum entered by Stacie Bocanegra 10/09/24 14:57: Spoke with Mukesh via telephone. [facility] [place] [facility] 1[facility] choice. [facility] made aware. Original Note: Patient remains in ER overflow. No acute bed offers. Patient has [facility] as a secondary issues. [facility] will typically pay for 80% of SNF cost for STR even if Medicare will not. Patient will be billed other 20%. Patient's son Mukesh aware. Referral broadcasted within 15 miles of patient's home. [facility] is willing to offer a bed with auth from [facility]. The following facilities are still reviewing: [facility], [facility], [facility] [place], [facility] [place], [facility] and [facility]. Attempted to meet with patient and family to discuss d/c options. Patient sleeping. No family bedside. Attempted to reach Mukesh via telephone at [phone]. Left message explaining patient would stay in ER overnight and [facility] willing to offer a bed and other facilities are reviewing. This list was left at patient's bedside. Continue to monitor for d/c needs.
[2024-10-09 14:00] VITALS: BP 189/89; PULSE 70; RESP 17; TEMP 36.4; O2SAT 92
[2024-10-09 19:19] VITALS: BP 138/71; PULSE 67; RESP 15; TEMP 36.6; O2SAT 95
--- NOTE | 2024-10-09 19:23 | MHC.EDTECH ---
This medical technologist hematology observed and stood by while patient ambulated using his walker along with his daughter. Patient has a steady gait, and denied any dizziness, back pain or leg pain.
--- NOTE | 2024-10-09 19:28 | PC.NURSE ---
this rn assumed care of pt, pt assisted out of bed with 2 person assist and walker, pt ambulatory around overflow with walker and stand by assist, pt denies dizziness and sob. pt daughter remains at bedside
[2024-10-09 21:07] VITALS: BP 132/78; PULSE 85
--- NOTE | 2024-10-09 21:13 | PC.NURSE ---
pt medicated per mar, tolerated whole well with water. pt given tooth brush and assisted with brushing
--- NOTE | 2024-10-09 21:35 | MHC.EDTECH ---
Patient was provided with toothbrush and toothpaste and was able to independently brush his own teeth.
[2024-10-10 02:17] VITALS: BP 147/68; PULSE 60; RESP 16; TEMP 36.2
[2024-10-10 05:34] VITALS: BP 132/64; PULSE 60; RESP 16; TEMP 36.1; O2SAT 92
[2024-10-10 09:55] VITALS: BP 132/64; PULSE 60
[2024-10-10] MEDS: Ferrous Sulfate 324 MG TABLET.DR PO (09:55)
[2024-10-10] MEDS: Ketorolac Tromethamine 0.5% Op 5 ML DROPS 1 DROP EYE-BOTH (09:55)
--- NOTE | 2024-10-10 13:29 | MHC.CM.ED ---
Patient remains in ER overflow. [facility] is unable to provide Cosentyx because it costs $7000. Facility is unable to have family provide medication. If medication was held during rehab, [facility] can accept patient. Spoke with Mukesh. Mukesh agreeable to holding Cosentyx. Spoke with Elizabeth COBIAN. Elizabeth will hold Cosentyx while at rehab. [facility] booked for 2pm. Patient, Marycarmen Mayorga RN and Elizabeth COBIAN aware. Continue to monitor for d/c needs.
[2024-10-10 14:00] VITALS: BP 122/60; PULSE 92; RESP 17; TEMP 36.5; O2SAT 93
[2024-10-10 15:17] VITALS: BP 00/00; PULSE 0; RESP 0; TEMP -17.7; TEMP 0; O2SAT 0
== END 2024-10-10 15:22 ==
PROVIDERS: Physician Assistant Medical; Emergency Provider Emergency Medicine Emergency Medical Services; PCP Internal Medicine
DX: M54.9 Dorsalgia, unspecified (principal); R05.2 Subacute cough; I11.0 Hypertensive heart disease with heart failure; I50.30 Unspecified diastolic (congestive) heart failure; I48.91 Unspecified atrial fibrillation; Z03.818 Encounter for observation for suspected exposure to other biological agents ruled out; Z79.82 Long term (current) use of aspirin; Z79.899 Other long term (current) drug therapy
CPT/HCPCS: 36415; 70450; 71250; 72128; 72131; 74176; 80053; 83735; 83880; 84484; 85025; 85610; 87637; 93005; 96374; 96375; 96376; 97162; 99285; J2270; J2405

== ENCOUNTER → 2024-10-07 16:47 | Outpatient (BNV) | payer MEDICARE, OTHER, SELFPAY | PROVIDERS: Emergency Provider Emergency Medicine Emergency Medical Services; PCP Internal Medicine; Visit Provider Internal Medicine | DX: I44.0 Atrioventricular block, first degree (principal); I45.10 Unspecified right bundle-branch block | CPT/HCPCS: 93010 ==

== ENCOUNTER → 2024-10-07 17:15 | Outpatient (BNV) | payer MEDICARE, OTHER, SELFPAY | PROVIDERS: PCP Internal Medicine; Visit Provider Radiology Diagnostic Radiology | DX: K80.20 Calculus of gallbladder without cholecystitis without obstruction (principal); S42.131A Displaced fracture of coracoid process, right shoulder, initial encounter for closed fracture; S22.43XA Multiple fractures of ribs, bilateral, initial encounter for closed fracture; M95.4 Acquired deformity of chest and rib; M54.50 Low back pain, unspecified; R91.8 Other nonspecific abnormal finding of lung field; I25.10 Atherosclerotic heart disease of native coronary artery without angina pectoris; I10 Essential (primary) hypertension; R41.0 Disorientation, unspecified; S22.051A Stable burst fracture of T5-T6 vertebra, initial encounter for closed fracture; S22.081A Stable burst fracture of T11-T12 vertebra, initial encounter for closed fracture | CPT/HCPCS: 70450; 71250; 72128; 72131; 74176 ==